=== PATIENT | female | born 1935 | race Caucasian/White ===

== ENCOUNTER 2017-08-24 03:06 | Emergency (ER) | payer MEDICARE, MEDICAID ==
[~2017-08-24] VITALS: Ht 165.1 cm; Wt 63.5 kg
[2017-08-24] MEDS ORDERED: NITROGLYCERIN OINT 1 GM PACKET TP ONE ×2 (03:15→04:02)
[2017-08-24] MEDS ORDERED: NITROGLYCERIN 0.4 MG/TAB BOTTLE SL ONE ×2 (03:15→04:02)
[2017-08-24 03:37] LABS: BASOPHILS # (AUTO) 0.1 K/uL (0.0-8.0); BASOPHILS % (AUTO) 0.7 % (0.0-2.0); EOSINOPHILS # (AUTO) 0.1 K/uL (0.0-0.7); EOSINOPHILS % (AUTO) 1.2 % (0.0-7.0); HEMATOCRIT 34.7 % (31.2-41.9); HEMOGLOBIN 11.9 g/dL (10.9-14.3); LYMPHOCYTES # (AUTO) 1.1 K/uL (20.0-40.0); LYMPHOCYTES % (AUTO) 13.1 % (20.5-51.5); MEAN CORPUSCULAR HEMOGLOBIN 31.8 uug (24.7-32.8); MEAN CORPUSCULAR HGB CONC 34 g/dL (32.3-35.6); MEAN CORPUSCULAR VOLUME 92.6 fL (75.5-95.3); MONOCYTES # (AUTO) 0.8 K/uL (2.0-10.0); MONOCYTES % (AUTO) 9.2 % (0.0-11.0); NEUTROPHILS # (AUTO) 6.3 K/uL (1.8-8.9); NEUTROPHILS % (AUTO) 75.8 % (38.5-71.5); PLATELET COUNT (AUTO) 228 K/uL (179-408); RED BLOOD CELL COUNT(AUTO) 3.75 MIL/uL (3.63-4.92); WHITE BLOOD COUNT (AUTO) 8.3 K/uL (3.8-11.8)
[2017-08-24] MEDS ORDERED: CYAN10009 PO (03:51)
[2017-08-24] MEDS ORDERED: PANT40TA2 PO (03:51)
[2017-08-24] MEDS ORDERED: METO-356 PO (03:51)
[2017-08-24] MEDS ORDERED: VENL75TA4 PO (03:51)
[2017-08-24] MEDS ORDERED: ARIP2TAB3 PO (03:51)
[2017-08-24] MEDS ORDERED: APIX2.5T PO (03:51)
[2017-08-24] MEDS ORDERED: DIGO125T PO (03:51)
[2017-08-24] MEDS ORDERED: MIRT45TA PO (03:51)
[2017-08-24] MEDS ORDERED: ATOR40TA PO (03:51)
[2017-08-24] MEDS ORDERED: MULT1TAB73 PO (03:51)
[2017-08-24] MEDS ORDERED: LEVO200T PO (03:51)
[2017-08-24] MEDS ORDERED: TRAZ-144 PO (03:51)
[2017-08-24] MEDS ORDERED: POTA-10 PO (03:56)
[2017-08-24] MEDS ORDERED: FURO80TA87 PO (03:56)
[2017-08-24 04:00] LABS: ALANINE AMINOTRANSFERASE 22 U/L (14-59); ALKALINE PHOSPHATASE 188 U/L (50-136); ASPARTATE AMINOTRANSFERASE 24 U/L (15-37); BILIRUBIN,DIRECT 0.2 mg/dL (0.0-0.2); BILIRUBIN,TOTAL 0.8 mg/dL (0.2-1.0); CARBON DIOXIDE 31 mmol/L (21-32); CHLORIDE 94 mmol/L (98-107); CREATININE 2.1 mg/dL (0.6-1.3); POTASSIUM 4.2 mmol/L (3.5-5.1); TOTAL PROTEIN, SERUM 8.3 g/dL (6.4-8.2); UREA NITROGEN, BLOOD 52 mg/dL (7-18)
[2017-08-24 04:02] LABS: GLUCOSE 398 mg/dL (74-106)
[2017-08-24] MEDS ORDERED: INSU100C SUBCUT ×3 (04:13)
[2017-08-24] MEDS ORDERED: INSU100I24 SQ (04:13)
--- NOTE | 2017-08-24 04:41 | NUR ---
Spoke to [facility] nursing Languages And Literature Instructor to request medical records for patient. Faxed release of record form to [phone] as requested
[2017-08-24] MEDS ORDERED: DIGOXIN 500 MCG/2 ML AMP IV ONE (04:45)
[2017-08-24] MEDS ORDERED: DIGOXIN 500 MCG/2 ML AMP ONE (05:03)
--- NOTE | 2017-08-24 05:46 | NUR ---
Spoke with [facility] nursing supervisor hot dip tinning, states she will fax patient chart to [facility] [place] now.
--- NOTE | 2017-08-24 07:31 | NUR ---
Report given to Shloa MONCADA
--- NOTE | 2017-08-24 07:58 | NUR ---
hospital tray at bedside per pt request
--- NOTE | 2017-08-24 08:19 | NUR ---
pt had bf with good appetite. tolerated well. called pt son for picker packer. pt son will arrange uber.
--- NOTE | 2017-08-24 08:30 | NUR ---
pt picked up by tomasz
[2017-08-24 08:33] VITALS: BP 121/66
== END 2017-08-24 08:31 | disposition home or self-care (01) ==
LOC: ER 03:06
DX: I11.0 Hypertensive heart disease with heart failure (principal); I48.91 Unspecified atrial fibrillation; I50.9 Heart failure, unspecified; E11.9 Type 2 diabetes mellitus without complications; Z79.01 Long term (current) use of anticoagulants; Z79.4 Long term (current) use of insulin; Z88.2 Allergy status to sulfonamides; Z95.0 Presence of cardiac pacemaker; Z98.890 Other specified postprocedural states; R06.00 Dyspnea, unspecified
CPT/HCPCS: 36415; 70030-TC; 71010; 85025; 85730; 93005; A4663; J1160

== ENCOUNTER 2017-08-24 23:08 | Emergency (ER) | payer MEDICARE, MEDICAID ==
[~2017-08-24] VITALS: Ht 165.1 cm; Wt 63.5 kg
[~2017-08-24 23:08] MED LIST: APIX2.5T PO; ARIP2TAB3 PO; ATOR40TA PO; CYAN10009 PO; DIGO125T PO; FURO80TA87 PO; INSU100C SUBCUT; INSU100I24 SQ; LEVO200T PO; METO-356 PO; MIRT45TA PO; MULT1TAB73 PO; PANT40TA2 PO; POTA-10 PO; TRAZ-144 PO; VENL75TA4 PO
--- NOTE | 2017-08-24 23:22 | NUR ---
Patient comes to ER via RA [id number] stating "I called 911 to get a ride to [facility]. They took me here. I want to take an UBER to [facility] now.
--- NOTE | 2017-08-24 23:47 | NUR ---
Patient discharged to home in stable conditon. Written and verbal after care instructions given. Patient verbalizes understanding of instructions.
== END 2017-08-24 23:48 | disposition home or self-care (01) ==
LOC: ER 23:08
DX: I11.0 Hypertensive heart disease with heart failure (principal); I50.9 Heart failure, unspecified; E11.9 Type 2 diabetes mellitus without complications; I48.91 Unspecified atrial fibrillation; Z79.01 Long term (current) use of anticoagulants; Z79.4 Long term (current) use of insulin; Z88.2 Allergy status to sulfonamides; Z95.0 Presence of cardiac pacemaker
CPT/HCPCS: A4663

== ENCOUNTER 2018-03-07 13:48 | Inpatient (IN) | payer MEDICARE, MEDICAID ==
[~2018-03-07] VITALS: Ht 165.1 cm; Wt 64.4 kg
[~2018-03-07 13:48] MED LIST changes: -TRAZ-144 PO; +TRAZ-182 PO
[2018-03-07 15:20] VITALS: BP 142/72
[2018-03-07] MEDS ORDERED: Z GUARD REMEDY PASTE 57 GM TUBE TOP PRN (15:30)
--- NOTE | 2018-03-07 16:00 | NUR ---
Admitted this 82 y/o female from [facility] with diagnosis of CHF and NSTEMI, transferred via gurney. Patient is alert, coherent, verbally responsive, on room air. not in any form of acute distress. She denies any pain or discomfort at this time. Skin is intact. Routine admission care done. Oriented patient to room and use of devices with verbalized understanding. Notified Dr. Mcginnis who is in the unit regarding admission and need for medication reconciliation. Informed Dr. Rosario about the admission. Admission photos taken.
[2018-03-07] MEDS ORDERED: ACET-2154 PO (16:19)
[2018-03-07] MEDS ORDERED: METO25TA6 PO (16:19)
[2018-03-07] MEDS ORDERED: VITA1TAB18 PO (16:19)
[2018-03-07] MEDS ORDERED: ARIP2TAB3 PO (16:19)
[2018-03-07] MEDS ORDERED: APIX2.5T PO (16:19)
[2018-03-07] MEDS ORDERED: HYDR-3326 PO (16:19)
[2018-03-07] MEDS ORDERED: BUME2TAB3 PO (16:19)
[2018-03-07] MEDS ORDERED: POLY15DR27 EACHEYE (16:19)
[2018-03-07] MEDS ORDERED: INSU100I19 SQ (16:19)
[2018-03-07] MEDS ORDERED: LEVO200T9 PO (16:19)
[2018-03-07] MEDS ORDERED: ONDA4TAB10 PO (16:19)
[2018-03-07] MEDS ORDERED: MULT-659 PO (16:19)
[2018-03-07] MEDS ORDERED: CALC-731 PO (16:19)
[2018-03-07] MEDS ORDERED: MIRT45TA5 PO (16:19)
[2018-03-07] MEDS ORDERED: DIGO125T PO (16:19)
[2018-03-07] MEDS ORDERED: ASCORBIC ACID PO (16:19)
[2018-03-07] MEDS ORDERED: NITR0.4T48 SL (16:19)
[2018-03-07] MEDS ORDERED: LOSA25TA13 PO (16:19)
[2018-03-07] MEDS ORDERED: CYAN10009 PO (16:19)
[2018-03-07] MEDS ORDERED: PANT40TA4 PO (16:19)
[2018-03-07] MEDS ORDERED: INSU100I24 SQ (16:35)
[2018-03-07] MEDS ORDERED: ALBUTEROL SULFATE 2.5 MG/3 ML NEBU NEB PRN (20:15)
[2018-03-07] MEDS ORDERED: HYDROCODONE/APAP 5-325MG TABLET PO PRN (20:15)
[2018-03-07] MEDS ORDERED: DEXTROSE 50% 50 ML DISP.SYRIN IV PRN (20:15)
[2018-03-07] MEDS ORDERED: ACETAMINOPHEN 325 MG TABLET PO PRN (20:15)
[2018-03-07 20:38] VITALS: BP 118/58
[2018-03-07] MEDS: ATORVASTATIN 40 MG TABLET PO SCH (20:53)
[2018-03-07] MEDS: METOPROLOL TARTRATE 25 MG TABLET PO SCH (20:54)
[2018-03-07] MEDS: MIRTAZAPINE 15 MG TABLET PO SCH (20:54)
[2018-03-07] MEDS: MUPIROCIN 2% OINT 22 GM TUBE NS SCH (20:54)
[2018-03-07] MEDS: INSULIN REGULAR, HUMAN 300 UNIT/3 ML VIAL SQ PRN (21:06)
[2018-03-07] MEDS: BLOOD SUGAR DIAGNOSTIC 1 EACH STRIP VI SCH (21:07)
[2018-03-08] MEDS: ZOLPIDEM 5 MG TABLET PO PRN ×2 (00:51→22:55)
[2018-03-08 05:01] VITALS: BP 110/50
[2018-03-08] MEDS: PANTOPRAZOLE SODIUM 40 MG TABLET.DR PO SCH (06:23)
[2018-03-08 07:53] VITALS: BP 164/71
[2018-03-08 07:54] LABS: BASOPHILS % (AUTO) 0.6 % (0.0-2.0); EOSINOPHILS # (AUTO) 0.1 K/uL (0.0-0.7); EOSINOPHILS % (AUTO) 1.9 % (0.0-7.0); HEMATOCRIT 31.3 % (31.2-41.9); HEMOGLOBIN 10.7 g/dL (10.9-14.3); LYMPHOCYTES # (AUTO) 1.3 K/uL (20.0-40.0); LYMPHOCYTES % (AUTO) 21.1 % (20.5-51.5); MEAN CORPUSCULAR HEMOGLOBIN 32.2 uug (24.7-32.8); MEAN CORPUSCULAR HGB CONC 34 g/dL (32.3-35.6); MEAN CORPUSCULAR VOLUME 93.7 fL (75.5-95.3); MONOCYTES # (AUTO) 0.6 K/uL (2.0-10.0); MONOCYTES % (AUTO) 9.9 % (0.0-11.0); NEUTROPHILS # (AUTO) 4.1 K/uL (1.8-8.9); NEUTROPHILS % (AUTO) 66.5 % (38.5-71.5); PLATELET COUNT (AUTO) 281 K/uL (179-408); RED BLOOD CELL COUNT(AUTO) 3.34 MIL/uL (3.63-4.92); WHITE BLOOD COUNT (AUTO) 6.1 K/uL (3.8-11.8)
--- NOTE | 2018-03-08 08:00 | NUR ---
Received patient alert and oriented x4, no c/o of pain at this time, able to verbalized known needs, compliant with her medication regiment, call light with in reach at all times. will continue monitor
[2018-03-08 08:01] LABS: CARBON DIOXIDE 31 mmol/L (21-32); CHLORIDE 94 mmol/L (98-107); CREATININE 1.5 mg/dL (0.6-1.3); GLUCOSE 159 mg/dL (74-106); POTASSIUM 4.6 mmol/L (3.5-5.1); UREA NITROGEN, BLOOD 26 mg/dL (7-18)
[2018-03-08] MEDS: BLOOD SUGAR DIAGNOSTIC 1 EACH STRIP VI SCH ×4 (08:13→21:59)
[2018-03-08] MEDS: INSULIN REGULAR, HUMAN 300 UNIT/3 ML VIAL SQ PRN ×4 (08:15→22:07)
[2018-03-08] MEDS: MUPIROCIN 2% OINT 22 GM TUBE NS SCH (08:21)
[2018-03-08] MEDS: POTASSIUM CHLORIDE 10 MEQ TAB.PRT.SR PO SCH (08:21)
[2018-03-08] MEDS: BUMETANIDE 1 MG TABLET PO SCH (08:22)
[2018-03-08] MEDS: ARIPIPRAZOLE 2 MG TABLET PO SCH (08:22)
[2018-03-08] MEDS: DIGOXIN 125 MCG TABLET PO SCH ×2 (08:23→08:28)
[2018-03-08] MEDS: METOPROLOL TARTRATE 25 MG TABLET PO SCH ×2 (08:23→21:58)
[2018-03-08] MEDS: LEVOTHYROXINE SODIUM 200 MCG TABLET PO SCH (08:28)
[2018-03-08] MEDS ORDERED: APIXABAN 5 MG TABLET PO ONE ×2 (09:00→18:00)
[2018-03-08] MEDS ORDERED: APIXABAN 5 MG TABLET PO SCH (09:00)
[2018-03-08] MEDS ORDERED: VENLAFAXINE 75 MG TABLET PO SCH (11:00)
[2018-03-08] MEDS ORDERED: ONDANSETRON HCL 4 MG TABLET PO PRN (11:00)
[2018-03-08] MEDS ORDERED: Medication Not On Formulary EA (Apixaban (Eliquis) 2.5 MG) PO SCH (11:00)
--- NOTE | 2018-03-08 11:00 | NUR ---
Patient picked up by personal care clinician for her eye appointment, patient in stable condition, no c/o pain noted.
[2018-03-08] MEDS: LOSARTAN POTASSIUM 25 MG TABLET PO SCH (18:38)
[2018-03-08] MEDS: VENLAFAXINE XR 75 MG CAP.SR.24H PO SCH (18:38)
[2018-03-08 19:15] VITALS: BP 133/68
[2018-03-08 19:58] VITALS: BP 134/69
[2018-03-08] MEDS ORDERED: INSULIN GLARGINE,HUM 300 UNITS/3 ML CARTRIDGE SQ ONE (21:30)
[2018-03-08] MEDS: MIRTAZAPINE 15 MG TABLET PO SCH (21:57)
[2018-03-08] MEDS: ATORVASTATIN 40 MG TABLET PO SCH (21:57)
[2018-03-08] MEDS: TRAZODONE 50 MG TABLET PO SCH (21:58)
[2018-03-08] MEDS: INSULIN DETEMIR 300 UNIT/3 ML CARTRIDGE SQ SCH (22:11)
[2018-03-09 00:24] VITALS: BP 125/61
--- NOTE | 2018-03-09 00:25 | NUR ---
NURSING CLINICAL NOTE: pt is complaining of SOB, denies chest pain. placed pt on 3L via NC. VSS. MD. Alves made aware. no new orders, will continue to monitor patient.
[2018-03-09] MEDS: LEVOTHYROXINE SODIUM 200 MCG TABLET PO SCH (06:29)
[2018-03-09] MEDS: PANTOPRAZOLE SODIUM 40 MG TABLET.DR PO SCH (06:29)
[2018-03-09] MEDS: BLOOD SUGAR DIAGNOSTIC 1 EACH STRIP VI SCH ×4 (06:29→21:34)
[2018-03-09 07:10] LABS: BASOPHILS % (AUTO) 0.5 % (0.0-2.0); EOSINOPHILS # (AUTO) 0.1 K/uL (0.0-0.7); EOSINOPHILS % (AUTO) 1.4 % (0.0-7.0); HEMATOCRIT 29.2 % (31.2-41.9); HEMOGLOBIN 9.9 g/dL (10.9-14.3); LYMPHOCYTES # (AUTO) 1.5 K/uL (20.0-40.0); LYMPHOCYTES % (AUTO) 22.9 % (20.5-51.5); MEAN CORPUSCULAR HEMOGLOBIN 31.7 uug (24.7-32.8); MEAN CORPUSCULAR HGB CONC 34 g/dL (32.3-35.6); MEAN CORPUSCULAR VOLUME 93.5 fL (75.5-95.3); MONOCYTES # (AUTO) 0.7 K/uL (2.0-10.0); MONOCYTES % (AUTO) 10.9 % (0.0-11.0); NEUTROPHILS # (AUTO) 4.2 K/uL (1.8-8.9); NEUTROPHILS % (AUTO) 64.3 % (38.5-71.5); PLATELET COUNT (AUTO) 213 K/uL (179-408); RED BLOOD CELL COUNT(AUTO) 3.12 MIL/uL (3.63-4.92); WHITE BLOOD COUNT (AUTO) 6.5 K/uL (3.8-11.8)
[2018-03-09 07:28] LABS: ALANINE AMINOTRANSFERASE 18 U/L (14-59); ALKALINE PHOSPHATASE 125 U/L (50-136); ASPARTATE AMINOTRANSFERASE 17 U/L (15-37); BILIRUBIN,TOTAL 0.4 mg/dL (0.2-1.0); CARBON DIOXIDE 30 mmol/L (21-32); CHLORIDE 98 mmol/L (98-107); CHOLESTEROL 105 mg/dL (<200); CREATININE 1.4 mg/dL (0.6-1.3); GLUCOSE 93 mg/dL (74-106); HDL CHOLESTEROL 51 mg/dL (40-60); MAGNESIUM 2.1 mg/dL (1.8-2.4); PHOSPHOROUS 3.6 mg/dL (2.5-4.9); POTASSIUM 4.5 mmol/L (3.5-5.1); TOTAL PROTEIN, SERUM 6.5 g/dL (6.4-8.2); TRIGLYCERIDES 86 MG/DL (30-150); UREA NITROGEN, BLOOD 25 mg/dL (7-18)
[2018-03-09 07:31] LABS: THYROID STIMULATING HORMONE 2.742 mIU/mL (0.358-3.740)
--- NOTE | 2018-03-09 08:10 | NUR ---
Received PT in awake and in bed. AOx4. No complain of pain noted at the time. PT received on NC due to difficulty breathing from previous night. No SOB noted. PT made needs known. Returned to bed with safety measures. Siderails up and call light within reach. Will continue to monitor.
[2018-03-09 08:15] VITALS: BP 115/55
[2018-03-09] MEDS: VENLAFAXINE XR 75 MG CAP.SR.24H PO SCH (08:59)
[2018-03-09] MEDS: BUMETANIDE 1 MG TABLET PO SCH (08:59)
[2018-03-09] MEDS ORDERED: CALCIUM CARB/VITAMIN D 500MG-200UNITS TABLET PO SCH (09:00)
[2018-03-09] MEDS ORDERED: APIXABAN 5 MG TABLET PO ONE (09:00)
[2018-03-09] MEDS ORDERED: Medication Not On Formulary EA (Multivits,Th W-Fe,Other Min (Thera-M) 1 EACH) PO SCH (09:00)
[2018-03-09] MEDS ORDERED: ASCORBIC ACID 100 MG PO SCH (09:00)
[2018-03-09] MEDS ORDERED: MULTIVIT, IRON, MIN NO. 8, FA TABLET PO SCH (09:00)
[2018-03-09] MEDS: DIGOXIN 125 MCG TABLET PO SCH (09:00)
[2018-03-09] MEDS ORDERED: POLYVINYL ALCOHOL OPHT DROPS 15 ML BOTTLE EACHEYE SCH (09:00)
[2018-03-09] MEDS ORDERED: MINERALS PO SCH (09:00)
[2018-03-09] MEDS ORDERED: VIT D3 PO SCH (09:00)
[2018-03-09] MEDS ORDERED: VITAMIN B COMPLEX 1 TABLET PO SCH (09:00)
[2018-03-09] MEDS ORDERED: [UNRECOGNIZED DRUG - OTHER] PO SCH (09:00)
[2018-03-09] MEDS ORDERED: VITAMIN B COMPLEX PO SCH (09:00)
[2018-03-09] MEDS ORDERED: ASCORBIC ACID 500 MG TABLET PO SCH (09:00)
[2018-03-09] MEDS ORDERED: CALCIUM CARB PO SCH (09:00)
[2018-03-09] MEDS ORDERED: CYANOCOBALAMIN 1,000 MCG TABLET PO SCH (09:00)
[2018-03-09] MEDS: POTASSIUM CHLORIDE 10 MEQ TAB.PRT.SR PO SCH (09:01)
[2018-03-09] MEDS: LOSARTAN POTASSIUM 25 MG TABLET PO SCH (09:01)
[2018-03-09] MEDS: METOPROLOL TARTRATE 25 MG TABLET PO SCH ×2 (09:01→20:45)
[2018-03-09] MEDS: ARIPIPRAZOLE 2 MG TABLET PO SCH (09:07)
[2018-03-09] MEDS: INSULIN REGULAR, HUMAN 300 UNIT/3 ML VIAL SQ PRN ×2 (11:13→16:30)
[2018-03-09 11:31] LABS: IRON, SERUM 45 ug/dL (50-175)
[2018-03-09 13:39] LABS: *BILIRUBIN,URIN NEGATIVE (NEGATIVE); *BLOOD, URINE NEGATIVE (NEGATIVE); *CLARITY,URINE CLEAR (CLEAR); *COLOR,URINE YELLOW (YELLOW); *KETONES,URINE NEGATIVE (NEGATIVE); *PROTEIN,URINE NEGATIVE (NEGATIVE); *UROBILINOGEN,URINE 0.2 E.U./dl (NORMAL); LEUKOCYTE ESTERASE ,URINE TRACE (NEGATIVE); NITRITE, URINE NEGATIVE (NEGATIVE); PH,URINE 6.5 (5.0-8.0); UGLUCOSE NEGATIVE (NEGATIVE)
[2018-03-09 13:42] LABS: BACTERIA,URINE FEW /HPF (NONE SEEN); SQUAMOUS EPITHELIAL CELL,UR MODERATE /HPF (NONE SEEN)
--- NOTE | 2018-03-09 14:00 | NUR ---
Spoke with PT's son, Rich, regarding Eloquis supply. He is aware that pharmacy is currently supplying it until he brings meds. He stated that he will bring it tonight when he visits PT.
[2018-03-09] MEDS ORDERED: ALBUTEROL SULFATE 2.5 MG/3 ML NEBU NEB PRN (15:45)
[2018-03-09] MEDS ORDERED: IPRATROPIUM BROMIDE 0.5 MG/2.5 ML NEBU NEB PRN (15:45)
[2018-03-09] MEDS: CEPHALEXIN MONOHYDRATE 250 MG CAPSULE PO SCH (16:32)
[2018-03-09] MEDS ORDERED: APIXABAN 5 MG TABLET PO SCH (17:00)
--- NOTE | 2018-03-09 19:30 | NUR ---
Received patient awake, busy talking in the phone. No s/s of pain/discomforts. Not in respiratory distress. Continue care as planned.
--- NOTE | 2018-03-09 19:40 | NUR ---
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 Elevated affected area with 2 pillows
[2018-03-09 20:29] VITALS: BP 116/53
[2018-03-09] MEDS: MIRTAZAPINE 15 MG TABLET PO SCH (20:44)
[2018-03-09] MEDS: TRAZODONE 50 MG TABLET PO SCH (20:44)
[2018-03-09] MEDS: ATORVASTATIN 40 MG TABLET PO SCH (20:44)
[2018-03-09 20:45] VITALS: BP 116/58
--- NOTE | 2018-03-09 21:05 | NUR ---
Assisted to the BR. Had large BM today. Stool specimen obtained and sent to the lab as ordered.
[2018-03-09] MEDS: INSULIN DETEMIR 300 UNIT/3 ML CARTRIDGE SQ SCH (21:33)
--- NOTE | 2018-03-09 22:37 | NUR ---
Patient friend from [place] called. Apparently patient called her to met her in [facility] ER. Reconfirmed said conversation with the patient and she claimed that her Human Resources Professional from [facility] Dr. Collins wants her to be transfered to ICU [facility], otherwise she will go AMA. VS taken 131/54, 94% RA, 64, 20, 97.8. Not in distress.
--- NOTE | 2018-03-09 22:45 | NUR ---
Left message to pt 's son Rich [phone]. Anticipating him to return the call.
--- NOTE | 2018-03-09 22:56 | NUR ---
Left message for Dr. Saunders.
--- NOTE | 2018-03-09 23:40 | NUR ---
Nursing inspection and testing supervisor made aware about patient intent to go AMA.
--- NOTE | 2018-03-09 23:52 | NUR ---
Dr Collins called and clarify if he really gave order to patient to transfer to [facility] and he said he's just only giving recommendation.
--- NOTE | 2018-03-10 00:25 | NUR ---
Trying to convince patient to stay even just for tonight, Pt claimed that she haven't seen any doctor for her 4 days length of stay and she needed to be seen to find out why she's still retaining water. Nursing airplane flight attendant supervisor made aware and even her tried every effort to convince her to stay, but patient made up her mind already.
[2018-03-10] MEDS: CEPHALEXIN MONOHYDRATE 250 MG CAPSULE PO SCH (00:55)
--- NOTE | 2018-03-10 01:00 | NUR ---
VENITA paper signed. Belongings packed ready to go. Friend from [place] trying to convince her to stay till Am. She will call for Uber transportation.
--- NOTE | 2018-03-10 01:30 | NUR ---
Left AMA via cab. Denies any CP/pain. No s/s of respiratory distress. VS stable.
[2018-03-10 08:30] LABS: *OCCULT BLOOD STOOL NEGATIVE (NEGATIVE)
--- NOTE | 2018-03-10 17:19 | NUR ---
INTERDISCIPLINARY TEAM CONFERENCE
== END 2018-03-10 01:30 | disposition left against medical advice (07) | DRG 281 ==
PROVIDERS: ADMIT Physical Medicine & Rehabilitation Pain Medicine; ATTEND Physical Medicine & Rehabilitation Pain Medicine
DX: I11.0 Hypertensive heart disease with heart failure (principal); I21.4 Non-ST elevation (NSTEMI) myocardial infarction; E44.0 Moderate protein-calorie malnutrition; E87.1 Hypo-osmolality and hyponatremia; N39.0 Urinary tract infection, site not specified; I50.33 Acute on chronic diastolic (congestive) heart failure; D63.8 Anemia in other chronic diseases classified elsewhere; E03.9 Hypothyroidism, unspecified; E11.9 Type 2 diabetes mellitus without complications; E78.5 Hyperlipidemia, unspecified; E83.51 Hypocalcemia; I25.10 Atherosclerotic heart disease of native coronary artery without angina pectoris; I48.0 Paroxysmal atrial fibrillation; Z85.3 Personal history of malignant neoplasm of breast; Z90.12 Acquired absence of left breast and nipple; Z95.1 Presence of aortocoronary bypass graft; Z95.5 Presence of coronary angioplasty implant and graft; R06.00 Dyspnea, unspecified; I35.0 Nonrheumatic aortic (valve) stenosis; Z88.2 Allergy status to sulfonamides; Z88.8 Allergy status to other drugs, medicaments and biological substances; M19.90 Unspecified osteoarthritis, unspecified site
CPT/HCPCS: 36415; 70030-TC; 83550; 83735; 84100; 84443; 85025; 87086; 92523; 92610; 94664; 97110; 97116; 97530; 97535; A4663; J1815

== ENCOUNTER 2019-06-27 11:47 | Inpatient (IN) | payer MEDICARE, MEDICAID ==
[~2019-06-27] VITALS: Ht 162.6 cm; Wt 66.9 kg
[~2019-06-27 11:47] MED LIST changes: +ACET-2154 PO; +ASCORBIC ACID PO; +BUME2TAB7 PO; +CALC-731 PO; +CYAN-51 PO; -CYAN10009 PO; -FURO80TA87 PO; +HYDR-3326 PO; -INSU100C SUBCUT; +INSU100I19 SQ; -LEVO200T PO; +LEVO200T9 PO; +LOSA25TA27 PO; -METO-356 PO; +METO25TA6 PO; -MIRT45TA PO; +MIRT45TA83 PO; +MULT-659 PO; -MULT1TAB73 PO; +NITR0.4T48 SL; +ONDA4TAB10 PO; -PANT40TA2 PO; +PANT40TA4 PO; +POLY15DR27 EACHEYE; +VITA1TAB18 PO
[2019-06-27] MEDS ORDERED: IV NORMAL SALINE 500 ML BAG IV ONE (12:00)
[2019-06-27 12:12] LABS: BASOPHILS % (AUTO) 0.4 % (0.0-2.0); EOSINOPHILS % (AUTO) 0.1 % (0.0-7.0); HEMATOCRIT 37.9 % (31.2-41.9); HEMOGLOBIN 12.7 g/dL (10.9-14.3); LYMPHOCYTES # (AUTO) 0.6 K/uL (20.0-40.0); LYMPHOCYTES % (AUTO) 5.6 % (20.5-51.5); MEAN CORPUSCULAR HEMOGLOBIN 32.7 uug (24.7-32.8); MEAN CORPUSCULAR HGB CONC 34 g/dL (32.3-35.6); MEAN CORPUSCULAR VOLUME 97.2 fL (75.5-95.3); MONOCYTES # (AUTO) 0.6 K/uL (2.0-10.0); MONOCYTES % (AUTO) 5.7 % (0.0-11.0); NEUTROPHILS # (AUTO) 9.8 K/uL (1.8-8.9); NEUTROPHILS % (AUTO) 88.2 % (38.5-71.5); PLATELET COUNT (AUTO) 217 K/uL (179-408); RED BLOOD CELL COUNT(AUTO) 3.89 MIL/uL (3.63-4.92); WHITE BLOOD COUNT (AUTO) 11.2 K/uL (3.8-11.8)
--- NOTE | 2019-06-27 12:15 | NUR ---
PATIENT BIB [facility]. PATIENT IS AWAKE AND ALERT. PLACED ON A MONITOR.
[2019-06-27 12:20] LABS: CARBON DIOXIDE 31 mmol/L (21-32); CHLORIDE 98 mmol/L (98-107); CREATININE 1.4 mg/dL (0.6-1.3); POTASSIUM 4.1 mmol/L (3.5-5.1); UREA NITROGEN, BLOOD 19 mg/dL (7-18)
[2019-06-27 12:28] LABS: GLUCOSE 410 mg/dL (74-106)
[2019-06-27 12:35] LABS: ALANINE AMINOTRANSFERASE 12 U/L (14-59); ALKALINE PHOSPHATASE 115 U/L (50-136); ASPARTATE AMINOTRANSFERASE 8 U/L (15-37); BILIRUBIN,DIRECT 0.3 mg/dL (0.0-0.2); BILIRUBIN,TOTAL 0.8 mg/dL (0.2-1.0); TOTAL PROTEIN, SERUM 7.5 g/dL (6.4-8.2)
[2019-06-27] MEDS ORDERED: INSULIN REGULAR, HUMAN 300 UNIT/3 ML VIAL ONE (12:40)
[2019-06-27] MEDS ORDERED: INSULIN REGULAR, HUMAN 300 UNIT/3 ML VIAL IV ONE (12:45)
[2019-06-27] MEDS ORDERED: INSU100C SQ (12:52)
[2019-06-27] MEDS ORDERED: INSU100V7 SQ (12:52)
--- NOTE | 2019-06-27 13:32 | NUR ---
PATIENT AND CAREGIVER AWARE OF PENDING ADMISSION TO HOSPITAL. PATIENT IS AWAKE AND ALERT WITH NO NEW COMPLAINTS. REPORT GIVEN TO DANNY MONCADA.
--- NOTE | 2019-06-27 13:55 | NUR ---
Received this admission from ER per saima this 84 yo female with the chief complaint of nausea with throat and abdominal pain with the diagnosis of CHF. Transferred to bed comfortably. Routine admission care rendered. Awake, alert, oriented x 4, with generalized weakness. Placed on tele v paced. Caregiver at bedside. Dr. Fermin informed of admission
[2019-06-27] MEDS ORDERED: Z GUARD REMEDY PASTE 57 GM TUBE TOP PRN (15:30)
[2019-06-27] MEDS ORDERED: MAGNESIUM HYDROXIDE 30 ML LIQUID UDC PO PRN (15:30)
[2019-06-27] MEDS ORDERED: ZOLPIDEM 5 MG TABLET PO PRN (15:30)
[2019-06-27] MEDS ORDERED: ONDANSETRON 4 MG/2 ML VIAL IV PRN (15:30)
[2019-06-27] MEDS ORDERED: INSULIN REGULAR, HUMAN 300 UNITS/3 ML VIAL SQ PRN (15:30)
[2019-06-27] MEDS ORDERED: DEXTROSE 50% 50 ML DISP.SYRIN IV PRN (15:30)
[2019-06-27] MEDS ORDERED: NITROGLYCERIN 0.4 MG/TAB BOTTLE SL PRN (15:30)
[2019-06-27] MEDS ORDERED: ALBUTEROL SULFATE 2.5 MG/3 ML NEBU NEB PRN (15:45)
[2019-06-27 16:13] VITALS: BP 111/64
[2019-06-27 16:16] VITALS: BP 111/64
[2019-06-27] MEDS: BLOOD SUGAR DIAGNOSTIC 1 EACH STRIP VI SCH ×2 (17:21→21:06)
[2019-06-27] MEDS: INSULIN REGULAR, HUMAN 300 UNIT/3 ML VIAL SQ PRN (17:32)
[2019-06-27] MEDS: APIXABAN 5 MG TABLET PO SCH (17:32)
--- NOTE | 2019-06-27 18:49 | NUR ---
Diet ordered. meal served. Endorsed for further care.
--- NOTE | 2019-06-27 19:30 | NUR ---
Received patient awake and alert in bed. No signs of acute distress noted. No complaints of SOB or pain at this time. Heplock on the right AC is intact and patent. Safety measures initiated. Bed is low and locked, call light within reach. Will continue to monitor.
[2019-06-27 20:00] VITALS: BP 110/61
--- NOTE | 2019-06-27 20:40 | NUR ---
Around 1999, patient started to complain of a dull chest pain 4/10, non-radiating. Administered PRN Nitroquick sublingual. After 5 minutes patient reported that chest pain went away. Lab also called about critical lab of lactic acid of 2.[address] Fermin, received new orders. Will continue to monitor.
[2019-06-27] MEDS: ATORVASTATIN 40 MG TABLET PO SCH (20:54)
[2019-06-27] MEDS: MIRTAZAPINE 15 MG TABLET PO SCH (20:54)
[2019-06-27] MEDS: ARIPIPRAZOLE 5 MG TABLET PO SCH (20:54)
[2019-06-27] MEDS ORDERED: ARIPIPRAZOLE 2 MG TABLET PO SCH (21:00)
[2019-06-27] MEDS ORDERED: MIRTAZAPINE 45 MG PO SCH (21:00)
[2019-06-28] VITALS: BP 130/64
[2019-06-28 03:57] LABS: *BILIRUBIN,URIN NEGATIVE (NEGATIVE); *BLOOD, URINE NEGATIVE (NEGATIVE); *CLARITY,URINE CLEAR (CLEAR); *COLOR,URINE YELLOW (YELLOW); *KETONES,URINE TRACE (NEGATIVE); *UROBILINOGEN,URINE 0.2 E.U./dl (NORMAL); LEUKOCYTE ESTERASE ,URINE NEGATIVE (NEGATIVE); NITRITE, URINE NEGATIVE (NEGATIVE)
[2019-06-28 04:00] VITALS: BP 107/52
[2019-06-28 04:03] LABS: UGLUCOSE 2+ (NEGATIVE)
[2019-06-28 04:07] LABS: BACTERIA,URINE NONE SEEN /HPF (NONE SEEN); MUCUS,URINE FEW /LPF (0-FEW); RBC,URINE 0-3 /HPF (0-3); SQUAMOUS EPITHELIAL CELL,UR FEW /HPF (NONE SEEN); URINE AMORPHOUS URATE MODERATE /HPF; WBC,URINE 0-3 /HPF (0-3)
[2019-06-28] MEDS: PANTOPRAZOLE SODIUM 40 MG TABLET.DR PO SCH (06:17)
[2019-06-28] MEDS: LEVOTHYROXINE SODIUM 200 MCG TABLET PO SCH (06:17)
[2019-06-28] MEDS: BLOOD SUGAR DIAGNOSTIC 1 EACH STRIP VI SCH ×4 (06:37→21:11)
[2019-06-28 07:08] LABS: BASOPHILS % (AUTO) 0.3 % (0.0-2.0); EOSINOPHILS % (AUTO) 0.3 % (0.0-7.0); LYMPHOCYTES # (AUTO) 0.9 K/uL (20.0-40.0); LYMPHOCYTES % (AUTO) 7.3 % (20.5-51.5); MEAN CORPUSCULAR HGB CONC 34 g/dL (32.3-35.6); MEAN CORPUSCULAR VOLUME 97.4 fL (75.5-95.3); MONOCYTES # (AUTO) 1.2 K/uL (2.0-10.0); NEUTROPHILS # (AUTO) 9.9 K/uL (1.8-8.9); NEUTROPHILS % (AUTO) 82.1 % (38.5-71.5); PLATELET COUNT (AUTO) 208 K/uL (179-408); RED BLOOD CELL COUNT(AUTO) 3.38 MIL/uL (3.63-4.92); WHITE BLOOD COUNT (AUTO) 12.1 K/uL (3.8-11.8)
[2019-06-28 07:13] LABS: CARBON DIOXIDE 30 mmol/L (21-32); CHLORIDE 99 mmol/L (98-107); CHOLESTEROL 106 mg/dL (<200); CREATININE 1.3 mg/dL (0.6-1.3); HDL CHOLESTEROL 20 mg/dL (40-60); MAGNESIUM 1.8 mg/dL (1.8-2.4); PHOSPHOROUS 1.4 mg/dL (2.5-4.9); POTASSIUM 3.7 mmol/L (3.5-5.1); TRIGLYCERIDES 126 MG/DL (30-150); UREA NITROGEN, BLOOD 16 mg/dL (7-18)
[2019-06-28 07:20] LABS: HEMOGLOBIN 11.2 g/dL (10.9-14.3)
[2019-06-28 07:21] LABS: HEMATOCRIT 32.9 % (31.2-41.9)
[2019-06-28 07:48] LABS: GLUCOSE 320 mg/dL (74-106)
[2019-06-28] MEDS ORDERED: [UNRECOGNIZED DRUG - OTHER] PO SCH (09:00)
[2019-06-28] MEDS ORDERED: VIT D3 PO SCH (09:00)
[2019-06-28] MEDS ORDERED: Medication Not On Formulary EA (Potassium Chloride (K-Dur) 10 MEQ) PO SCH (09:00)
[2019-06-28] MEDS ORDERED: Medication Not On Formulary EA (Multivits,Th W-Fe,Other Min (Thera-M) 1 EACH) PO SCH (09:00)
[2019-06-28] MEDS ORDERED: MINERALS PO SCH (09:00)
[2019-06-28] MEDS ORDERED: ASCORBIC ACID 100 MG PO SCH (09:00)
[2019-06-28] MEDS ORDERED: Medication Not On Formulary EA (Bumetanide (Bumex) 2 MG) PO SCH (09:00)
[2019-06-28] MEDS ORDERED: CALCIUM CARB PO SCH (09:00)
[2019-06-28] MEDS ORDERED: FUROSEMIDE 20 MG/2 ML VIAL IV SCH ×2 (09:00→17:00)
[2019-06-28] MEDS: INSULIN REGULAR, HUMAN 300 UNIT/3 ML VIAL SQ PRN ×2 (09:27→13:51)
[2019-06-28] MEDS: POLYVINYL ALCOHOL OPHT DROPS 15 ML BOTTLE EACHEYE SCH (09:39)
[2019-06-28] MEDS: APIXABAN 5 MG TABLET PO SCH ×2 (09:41→17:00)
[2019-06-28] MEDS: ASCORBIC ACID 250 MG TABLET PO SCH (09:43)
[2019-06-28] MEDS: CALCIUM CARB/VITAMIN D 500MG-200UNITS TABLET PO SCH (09:43)
[2019-06-28] MEDS: POTASSIUM CHLORIDE 10 MEQ TAB.PRT.SR PO SCH (09:43)
[2019-06-28] MEDS: CYANOCOBALAMIN 1,000 MCG TABLET PO SCH (09:44)
[2019-06-28] MEDS: MULTIVIT, IRON, MIN NO. 8, FA TABLET PO SCH (09:44)
[2019-06-28] MEDS: ACETAMINOPHEN 325 MG TABLET PO SCH (09:53)
[2019-06-28 11:16] VITALS: BP 100/47
[2019-06-28] MEDS ORDERED: VANCOMYCIN IV 1,000 MG in IV DEXTROSE 5% 250 ML IV SCH (11:30)
--- NOTE | 2019-06-28 12:06 | NUR ---
CLINICAL PHARMACY NOTE: VANCOMYCIN DOSING Request for vancomycin dosing on 84 y/o female 162.56cm 70.76kg for sepsis of unknown origin Temp 98.2 BUN 16 Scr 1.2 WBC 12.1 also on ceftriaxone Give vancomycin 1gm ivpb today. Will dose by level due to decrease renal function. Random vancomycin level ordered for tomorrow afternoon. Will continue to monitor.
[2019-06-28] MEDS ORDERED: VANCOMYCIN IV 1,000 MG in IV DEXTROSE 5% 250 ML IV ONE (13:00)
[2019-06-28] MEDS: CEFTRIAXONE 1 G in IV DEXTROSE 5% 50 ML IV SCH (13:56)
[2019-06-28] MEDS ORDERED: DEXTROSE 50% 50 ML DISP.SYRIN IV PRN (14:15)
[2019-06-28] MEDS: INSULIN GLARGINE,HUM 300 UNITS/3 ML CARTRIDGE SQ SCH ×2 (14:42→21:00)
[2019-06-28 15:03] VITALS: BP 104/55
[2019-06-28] MEDS ORDERED: NEUTRA PHOS PACKET PO ONE (15:15)
[2019-06-28] MEDS: INSULIN REGULAR, HUMAN 300 UNITS/3 ML VIAL SQ PRN (17:43)
[2019-06-28] MEDS: VITAMIN B COMPLEX 1 TABLET PO SCH (17:59)
[2019-06-28 20:10] VITALS: BP 148/55
[2019-06-28] MEDS: ARIPIPRAZOLE 5 MG TABLET PO SCH (20:51)
[2019-06-28] MEDS: ATORVASTATIN 40 MG TABLET PO SCH (20:52)
[2019-06-28] MEDS: MIRTAZAPINE 15 MG TABLET PO SCH (20:52)
[2019-06-28] MEDS ORDERED: ATORVASTATIN 20 MG TABLET PO SCH (21:00)
[2019-06-28] MEDS ORDERED: INSULIN GLARGINE,HUM 300 UNITS/3 ML CARTRIDGE SQ SCH (21:00)
--- NOTE | 2019-06-28 21:15 | NUR ---
CHECKED BLOOD SUGAR, BLOOD SUGAR IS 57 , PER AM NURSE, LANTUS WAS GIVEN EARLY PRE MD. HELD REGULAR INSULIN AND LANTUS. ABLE TO GIVE 16 OZ OF ORANGE JUICE, PATIENT SEEMS TO BE DROWSY BUT STILL ABLE TO DRINK JUICE. ASPIRATION PRECAUTIONS OBSERVED.
--- NOTE | 2019-06-28 22:28 | NUR ---
RECHECKED BLOOD SUGAR. 61. GAVE 8 OZ OF ORANGE JUICE, RECHECKED 30 MIN AFTER. BS IS 64. PATIENT IS AWAKE AND ALERT AND ASYMPTOMATIC . WILL CHECK BLOOD SUGAR AGAIN IN 30 MIN
[2019-06-29] VITALS: BP 110/55
--- NOTE | 2019-06-29 00:07 | NUR ---
BLOOD SUGAR AT 55, PATIENT IS SLEEPING BUT ARROUSABLE WHEN I CALL HER NAME. 24 OXZ OF ORANGE JUICE GIVEN IN TOTAL. DEXTROSE 50L GIVEN PER ORDER. WILL CHECK BLOOD SUGAR AGAIN
[2019-06-29 06:00] VITALS: BP 120/56
[2019-06-29] MEDS: PANTOPRAZOLE SODIUM 40 MG TABLET.DR PO SCH (06:18)
[2019-06-29] MEDS: LEVOTHYROXINE SODIUM 200 MCG TABLET PO SCH (06:18)
[2019-06-29 06:26] LABS: BASOPHILS % (AUTO) 0.3 % (0.0-2.0); EOSINOPHILS % (AUTO) 0.4 % (0.0-7.0); HEMATOCRIT 33.3 % (31.2-41.9); HEMOGLOBIN 11.3 g/dL (10.9-14.3); LYMPHOCYTES # (AUTO) 0.8 K/uL (20.0-40.0); LYMPHOCYTES % (AUTO) 6.9 % (20.5-51.5); MEAN CORPUSCULAR HEMOGLOBIN 33.1 uug (24.7-32.8); MEAN CORPUSCULAR HGB CONC 34 g/dL (32.3-35.6); MEAN CORPUSCULAR VOLUME 98.1 fL (75.5-95.3); MONOCYTES # (AUTO) 0.4 K/uL (2.0-10.0); MONOCYTES % (AUTO) 3.7 % (0.0-11.0); NEUTROPHILS # (AUTO) 10.6 K/uL (1.8-8.9); NEUTROPHILS % (AUTO) 88.7 % (38.5-71.5); PLATELET COUNT (AUTO) 200 K/uL (179-408); WHITE BLOOD COUNT (AUTO) 11.9 K/uL (3.8-11.8)
[2019-06-29] MEDS: BLOOD SUGAR DIAGNOSTIC 1 EACH STRIP VI SCH ×4 (06:31→20:46)
[2019-06-29 06:33] LABS: CARBON DIOXIDE 28 mmol/L (21-32); CHLORIDE 97 mmol/L (98-107); CREATININE 1.4 mg/dL (0.6-1.3); GLUCOSE 104 mg/dL (74-106); PHOSPHOROUS 1.9 mg/dL (2.5-4.9); POTASSIUM 3.5 mmol/L (3.5-5.1); UREA NITROGEN, BLOOD 17 mg/dL (7-18)
--- NOTE | 2019-06-29 06:51 | NUR ---
PATIENT BS IS 108 , PATIENT IS IN NO DISTRESS, SLEPT WELL LAST NIGHT. REMAINS ASYMPTOMATIC. HEART MONITOR READING PACING 70 ENDORSED TO AM SHIFT NURSE
[2019-06-29] MEDS: METOPROLOL SUCCINATE XL 25 MG TAB.SR.24H PO SCH (09:00)
[2019-06-29] MEDS: POLYVINYL ALCOHOL OPHT DROPS 15 ML BOTTLE EACHEYE SCH (09:31)
[2019-06-29] MEDS: CALCIUM CARB/VITAMIN D 500MG-200UNITS TABLET PO SCH (09:32)
[2019-06-29] MEDS: CYANOCOBALAMIN 1,000 MCG TABLET PO SCH (09:33)
[2019-06-29] MEDS: ASCORBIC ACID 250 MG TABLET PO SCH (09:34)
[2019-06-29] MEDS: MULTIVIT, IRON, MIN NO. 8, FA TABLET PO SCH (10:02)
[2019-06-29] MEDS: APIXABAN 5 MG TABLET PO SCH ×2 (10:07→17:28)
[2019-06-29] MEDS: POTASSIUM CHLORIDE 10 MEQ TAB.PRT.SR PO SCH (10:12)
[2019-06-29] MEDS: ACETAMINOPHEN 325 MG TABLET PO SCH (10:12)
[2019-06-29] MEDS: BUMETANIDE 1 MG TABLET PO SCH (10:13)
[2019-06-29 11:02] VITALS: BP 110/54
[2019-06-29] MEDS ORDERED: SODIUM PHOSPHATE MM 15 MM in IV DEXTROSE 5% 250 ML IV ONE (11:45)
[2019-06-29] MEDS: CEFTRIAXONE 1 G in IV DEXTROSE 5% 50 ML IV SCH (12:28)
[2019-06-29] MEDS: INSULIN REGULAR, HUMAN 300 UNIT/3 ML VIAL SQ PRN ×2 (12:32→17:33)
--- NOTE | 2019-06-29 12:40 | NUR ---
CLINICAL PHARMACY NOTE: VANCOMYCIN DOSING S: To continue vancomycin dosing on this 84 y/o female for sepsis of unknown origin O: Temp 98.2 BUN 17 Scr 1.4 WBC 11.9 Vanco random level on 06/29 at 12: 8.1 ht 162 cm wt 71 kg Plan Due to decrease renal function (unstable), will continue to dose by random level. Since vanco random level today is 8.1 mcg/ml, will give vanco 1gm IVP x1 today at 1300. Pharmacy shall check srcr in am & decide when to order next random vancomycin level for further dosing. Continue to monitor.
[2019-06-29] MEDS ORDERED: VANCOMYCIN IV 1,000 MG in IV DEXTROSE 5% 250 ML IV ONE (13:00)
[2019-06-29 15:00] VITALS: BP 99/45
[2019-06-29] MEDS: VITAMIN B COMPLEX 1 TABLET PO SCH (15:37)
[2019-06-29] MEDS ORDERED: Medication Not On Formulary EA (Apixaban (Eliquis) 2.5 MG) PO SCH (17:00)
[2019-06-29 20:10] VITALS: BP 111/53
[2019-06-29] MEDS: ARIPIPRAZOLE 5 MG TABLET PO SCH (20:36)
[2019-06-29] MEDS: ATORVASTATIN 40 MG TABLET PO SCH (20:36)
[2019-06-29] MEDS: MIRTAZAPINE 15 MG TABLET PO SCH (20:36)
[2019-06-29] MEDS: INSULIN REGULAR, HUMAN 300 UNITS/3 ML VIAL SQ PRN (20:48)
[2019-06-29] MEDS: INSULIN GLARGINE,HUM 300 UNITS/3 ML CARTRIDGE SQ SCH (20:54)
[2019-06-30] VITALS: BP 120/62
[2019-06-30 04:00] VITALS: BP 105/54
[2019-06-30] MEDS: PANTOPRAZOLE SODIUM 40 MG TABLET.DR PO SCH (06:29)
[2019-06-30] MEDS: LEVOTHYROXINE SODIUM 200 MCG TABLET PO SCH (06:29)
[2019-06-30] MEDS: BLOOD SUGAR DIAGNOSTIC 1 EACH STRIP VI SCH ×4 (06:30→20:38)
[2019-06-30 06:58] LABS: BASOPHILS % (AUTO) 0.2 % (0.0-2.0); EOSINOPHILS % (AUTO) 0.1 % (0.0-7.0); HEMATOCRIT 34.5 % (31.2-41.9); HEMOGLOBIN 11.7 g/dL (10.9-14.3); LYMPHOCYTES # (AUTO) 0.9 K/uL (20.0-40.0); LYMPHOCYTES % (AUTO) 5.3 % (20.5-51.5); MEAN CORPUSCULAR HEMOGLOBIN 32.9 uug (24.7-32.8); MEAN CORPUSCULAR HGB CONC 34 g/dL (32.3-35.6); MEAN CORPUSCULAR VOLUME 96.7 fL (75.5-95.3); MONOCYTES # (AUTO) 1.2 K/uL (2.0-10.0); MONOCYTES % (AUTO) 7.2 % (0.0-11.0); NEUTROPHILS # (AUTO) 14.5 K/uL (1.8-8.9); NEUTROPHILS % (AUTO) 87.2 % (38.5-71.5); PLATELET COUNT (AUTO) 237 K/uL (179-408); RED BLOOD CELL COUNT(AUTO) 3.57 MIL/uL (3.63-4.92); WHITE BLOOD COUNT (AUTO) 16.6 K/uL (3.8-11.8)
--- NOTE | 2019-06-30 07:15 | NUR ---
RECEIVED PATIENT AWAKE ALERT AND AWARE DENIES PAIN OR DISCOMFORTS AT THIS TIME TELE IS AV PACING AT THIS TIME NO S/S OF HYPO/HYPERGLYCEMIC REACTIONS AT THIS TIME CALL LIGHTS AND PERSONAL BELONGINGS ARE WITHIN EASY REACH MADE COMFORTABLE AND WILL CONTINUE TO OBSERVE.
[2019-06-30 07:18] LABS: CARBON DIOXIDE 30 mmol/L (21-32); CHLORIDE 98 mmol/L (98-107); CREATININE 1.4 mg/dL (0.6-1.3); GLUCOSE 101 mg/dL (74-106); POTASSIUM 3.2 mmol/L (3.5-5.1); UREA NITROGEN, BLOOD 16 mg/dL (7-18)
[2019-06-30] MEDS: APIXABAN 5 MG TABLET PO SCH ×2 (08:28→16:38)
[2019-06-30] MEDS: CALCIUM CARB/VITAMIN D 500MG-200UNITS TABLET PO SCH (08:29)
[2019-06-30] MEDS: ACETAMINOPHEN 325 MG TABLET PO SCH (08:29)
[2019-06-30] MEDS: ASCORBIC ACID 250 MG TABLET PO SCH (08:30)
[2019-06-30] MEDS: BUMETANIDE 1 MG TABLET PO SCH (08:30)
[2019-06-30] MEDS: CYANOCOBALAMIN 1,000 MCG TABLET PO SCH (08:30)
[2019-06-30] MEDS: MULTIVIT, IRON, MIN NO. 8, FA TABLET PO SCH (08:30)
[2019-06-30] MEDS: METOPROLOL SUCCINATE XL 25 MG TAB.SR.24H PO SCH (08:31)
[2019-06-30] MEDS: POTASSIUM CHLORIDE 10 MEQ TAB.PRT.SR PO SCH (08:31)
[2019-06-30] MEDS: POLYVINYL ALCOHOL OPHT DROPS 15 ML BOTTLE EACHEYE SCH (08:32)
[2019-06-30] MEDS: VITAMIN B COMPLEX 1 TABLET PO SCH (09:46)
[2019-06-30 11:00] VITALS: BP 93/51
[2019-06-30] MEDS ORDERED: POTASSIUM CHLORIDE 20 MEQ POWDER PACKET PO ONE (11:00)
[2019-06-30] MEDS: CEFTRIAXONE 1 G in IV DEXTROSE 5% 50 ML IV SCH (12:19)
[2019-06-30] MEDS: INSULIN REGULAR, HUMAN 300 UNIT/3 ML VIAL SQ PRN ×2 (12:21→16:36)
--- NOTE | 2019-06-30 13:00 | NUR ---
DR CANNON AWARE THAT PATIENT IS PASSING MUCUS FROM HER RECTUM AND HE STATED TO SEND A SPECIMEN TO THE LAB AND NOTED.
--- NOTE | 2019-06-30 13:44 | NUR ---
CLINICAL PHARMACY NOTE: VANCOMYCIN DOSING S: To continue vancomycin dosing on this 84 y/o female for sepsis of unknown origin O: Temp 99.1 BUN 16 Scr 1.4 WBC 16.6 Vanco random level on 06/29 at 12: 8.1 Vanco random level on 06/30 at 1300: 17.3 ht 162 cm wt 71 kg Plan Due to decrease renal function (unstable), will continue to dose by random level. Dosed another 1gm vanco today at 1500 per random level. Next random ordered for tomorrow at 1500. Will follow and redose as needed. Will monitor
[2019-06-30 15:00] VITALS: BP 90/53
[2019-06-30] MEDS ORDERED: VANCOMYCIN IV 1,000 MG in IV DEXTROSE 5% 250 ML IV ONE (15:00)
[2019-06-30 15:30] LABS: *OCCULT BLOOD STOOL POSITIVE (NEGATIVE)
--- NOTE | 2019-06-30 16:00 | NUR ---
PATIENT ASSISTED AND SHE WALKED WITH THE FRONT WHEEL WALKER IN THE HALLWAY BACK TO HER ROOM ANDB SEATED ON THE CHAIR FOR A WHILE AND ASSISTED BACK INTO BED TOLERATED WELL.
--- NOTE | 2019-06-30 18:00 | NUR ---
REMAIN ON ATB ORDERED WITH NO ADVERSE OR ALLERGIC REACTIONS AT THIS TIME DENIES PAIN OR DISCOMFORTS AFEBRILE MADE COMFORTABLE WILL CONTINUE TO OBSERVE.
[2019-06-30 20:00] VITALS: BP 112/62
[2019-06-30] MEDS: ARIPIPRAZOLE 5 MG TABLET PO SCH (20:31)
[2019-06-30] MEDS: ATORVASTATIN 40 MG TABLET PO SCH (20:31)
[2019-06-30] MEDS: MIRTAZAPINE 15 MG TABLET PO SCH (20:31)
[2019-06-30] MEDS: INSULIN REGULAR, HUMAN 300 UNITS/3 ML VIAL SQ PRN (20:42)
[2019-06-30] MEDS: INSULIN GLARGINE,HUM 300 UNITS/3 ML CARTRIDGE SQ SCH (20:43)
[2019-07-01 04:43] VITALS: BP 90/44
--- NOTE | 2019-07-01 05:00 | NUR ---
NOTED WITH OPEN WOUND ON LEFT INNER BUTTOCK. PER TESTING AND REGULATING TECHNICIAN WHILE CHANGING THE SITE THAT IS NOW OPEN WAS BULGING BUT CLOSED AND INTACT , POSSIBLE ABSCESS. NOW IT HAS ERUPTED AND NOW OPEN WITH PURULENT DRAINAGE. CLEANED WITH NS , PAT DRY , WET TO DRY DRESSING AND PLACED MEPILEX, PHOTO TAKEN, WOUND CONSULT IN PLACE.
[2019-07-01] MEDS: LEVOTHYROXINE SODIUM 200 MCG TABLET PO SCH (06:17)
[2019-07-01] MEDS: PANTOPRAZOLE SODIUM 40 MG TABLET.DR PO SCH (06:17)
--- NOTE | 2019-07-01 06:30 | NUR ---
BS CHECKED 65 , PATIENT ALERT AND EASILY AROUSALBLE. IS ASYMPTOMATIC. GAVE 8OZ OF ORANGE JUICE. PATIENT IS STABLE.
--- NOTE | 2019-07-01 06:50 | NUR ---
CHECKED BP 74/24 HR 74 O2 100 TEMP 97.9 . PATIENT IS SLEEPING BUT IS EASILY ARROUSABLE . ABLE TO STATE NAME, YEAR AND WHERE SHE IS. PER PATIENT IS FEELING LIGHT HEADED. PLACED PATIENT IN [place] POSITION. PLACED PATIENT ON 2L 02. COMMUNICATED WITH MD ABREU. ORDERS TO TRANSFER TO TELE . PATIENT IS PACING A FLUTTER. WILL CONTINUE TO MONITOR.
--- NOTE | 2019-07-01 07:00 | NUR ---
BP IS 88/42 02 98 ON 2L . HR 72 PATIENT IS STILL EASILY ARROUSABLE BUT SLEEPING , CLAIMS SHE IS STILL LIGHT HEADED. STARTED IV FLUIDS 250ML OF NS PER MD ORDER.
[2019-07-01] MEDS: BLOOD SUGAR DIAGNOSTIC 1 EACH STRIP VI SCH ×4 (07:02→20:59)
--- NOTE | 2019-07-01 07:10 | NUR ---
BP HAS IMPROVED 95/51 , PATIENT IS STILL ARROUSABLE BUT SLEEPING. BS CHECKED 75.
[2019-07-01] MEDS ORDERED: IV NORMAL SALINE 250 ML IV ONE ×2 (07:15→11:15)
--- NOTE | 2019-07-01 07:20 | NUR ---
BP IS NOW 101/4 71 , SHE IS PACING A FLUTTER. ENDORSED TO AM SHIFT NURSE. AT THIS TIME PATIENT IS STABLE. ARROUSABLE. ON 02 2L .
--- NOTE | 2019-07-01 07:30 | NUR ---
RECEIVED PATIENT IN BED AWAKE ALERT AND ORIENTED WITH O2 AT 2L/M BY NASAL CANULA WITH SATS AT 99 PERCENT TITRATED O2 TO IL/M AND SAT IS AT 96-96 PERCENT.BLOOD PRESSURE IS FLUCTUATING AT 99-101 SYSTOLIC AND 37-44 DIASTOLIC PATIENT IS PLACED ON TELE PER DR ABREU AND SHE IS PACING WITH FLUTTER. BLOOD SUGAR AFTER RECHECK IS 75 PATIENT IS ASSYMPTOMATIC MADE COMFORTABLE WILL CONTINUE TO OBSERVE.
[2019-07-01 08:04] LABS: BASOPHILS # (AUTO) 0.1 K/uL (0.0-8.0); BASOPHILS % (AUTO) 0.5 % (0.0-2.0); EOSINOPHILS % (AUTO) 0.3 % (0.0-7.0); HEMATOCRIT 31.5 % (31.2-41.9); HEMOGLOBIN 10.6 g/dL (10.9-14.3); LYMPHOCYTES # (AUTO) 0.9 K/uL (20.0-40.0); MEAN CORPUSCULAR HEMOGLOBIN 32.7 uug (24.7-32.8); MEAN CORPUSCULAR HGB CONC 34 g/dL (32.3-35.6); MONOCYTES # (AUTO) 0.9 K/uL (2.0-10.0); MONOCYTES % (AUTO) 6.4 % (0.0-11.0); NEUTROPHILS # (AUTO) 12.4 K/uL (1.8-8.9); NEUTROPHILS % (AUTO) 86.8 % (38.5-71.5); PLATELET COUNT (AUTO) 211 K/uL (179-408); RED BLOOD CELL COUNT(AUTO) 3.25 MIL/uL (3.63-4.92); WHITE BLOOD COUNT (AUTO) 14.3 K/uL (3.8-11.8)
[2019-07-01 08:50] LABS: CARBON DIOXIDE 29 mmol/L (21-32); CHLORIDE 97 mmol/L (98-107); CREATININE 1.6 mg/dL (0.6-1.3); GLUCOSE 83 mg/dL (74-106); UREA NITROGEN, BLOOD 21 mg/dL (7-18)
[2019-07-01 08:54] LABS: ALANINE AMINOTRANSFERASE < 6 U/L (14-59); ALKALINE PHOSPHATASE 101 U/L (50-136); ASPARTATE AMINOTRANSFERASE 12 U/L (15-37); BILIRUBIN,TOTAL 0.4 mg/dL (0.2-1.0); MAGNESIUM 1.6 mg/dL (1.8-2.4); PHOSPHOROUS 2.6 mg/dL (2.5-4.9); TOTAL PROTEIN, SERUM 5.7 g/dL (6.4-8.2)
[2019-07-01] MEDS: POTASSIUM CHLORIDE 10 MEQ TAB.PRT.SR PO SCH (09:05)
[2019-07-01] MEDS: CYANOCOBALAMIN 1,000 MCG TABLET PO SCH (09:05)
[2019-07-01] MEDS: MULTIVIT, IRON, MIN NO. 8, FA TABLET PO SCH (09:05)
[2019-07-01] MEDS: CALCIUM CARB/VITAMIN D 500MG-200UNITS TABLET PO SCH (09:05)
[2019-07-01] MEDS: ASCORBIC ACID 250 MG TABLET PO SCH (09:06)
[2019-07-01] MEDS: VITAMIN B COMPLEX 1 TABLET PO SCH (09:08)
[2019-07-01] MEDS: POLYVINYL ALCOHOL OPHT DROPS 15 ML BOTTLE EACHEYE SCH (09:09)
[2019-07-01] MEDS: APIXABAN 5 MG TABLET PO SCH ×2 (09:10→16:23)
[2019-07-01] MEDS ORDERED: IV NORMAL SALINE 250 ML BAG IV ONE (10:15)
[2019-07-01] MEDS ORDERED: VANCOMYCIN IV 1,000 MG in IV DEXTROSE 5% 250 ML IV SCH (10:15)
[2019-07-01 11:08] LABS: *BILIRUBIN,URIN NEGATIVE (NEGATIVE); *BLOOD, URINE NEGATIVE (NEGATIVE); *CLARITY,URINE CLEAR (CLEAR); *COLOR,URINE YELLOW (YELLOW); *KETONES,URINE NEGATIVE (NEGATIVE); *UROBILINOGEN,URINE 0.2 E.U./dl (NORMAL); LEUKOCYTE ESTERASE ,URINE NEGATIVE (NEGATIVE); NITRITE, URINE NEGATIVE (NEGATIVE); PH,URINE 6.5 (5.0-8.0); UGLUCOSE NEGATIVE (NEGATIVE)
--- NOTE | 2019-07-01 11:20 | NUR ---
LIU CATH INSERTED ORDERED AND URINE COLLECTED AND SENT TO THE LAB
[2019-07-01 11:30] VITALS: BP 97/52
[2019-07-01] MEDS ORDERED: PIPERACILLIN SODIUM/TAZOBACTAM 3.375 G in IV DEXTROSE 5% 50 ML IV SCH (12:00)
--- NOTE | 2019-07-01 12:15 | NUR ---
MID LINE RN HERE AND MID LINE INSERTED AND NS INFUSED ORDERED
[2019-07-01] MEDS: INSULIN REGULAR, HUMAN 300 UNIT/3 ML VIAL SQ PRN ×2 (12:16→16:13)
[2019-07-01] MEDS: ACETAMINOPHEN 325 MG TABLET PO PRN (12:30)
--- NOTE | 2019-07-01 12:36 | NUR ---
WOUND CARE CONSULT: PT PRESENTS WITH LEFT INNER BUTTOCK OPEN ABSCESS WITH SOME INDURATION AND PURULENT DRAINAGE. PT NOTED TO HAVE REDNESS TO INNER BUTTOCK AREA ON ADMISSION. RECOMMEND SURGICAL CONSULT. RECOMMENDATIONS MADE FOR SKIN PROTECTION AND WOUND CARE. DISCUSSED WITH NURSING STAFF. DR ERICK YI NOTIFIED OF SURGICAL CONSULT REQUEST. WILL SEE PRN. SHETH IN AGREEMENT WITH PLAN OF CARE. Addendum: 07/01/19 at 1237 by KARTHIKEYAN HOWARD RN Amended: Links added.
[2019-07-01] MEDS: PIPERACILLIN/TAZO 2.25 G in IV DEXTROSE 5% 50 ML IV SCH ×2 (12:54→17:15)
[2019-07-01] MEDS: MAGNESIUM SULFATE/D5W 100 ML IV SCH ×2 (13:35→14:32)
--- NOTE | 2019-07-01 14:05 | NUR ---
MAGNESSIUM REPLACEMENT IN PROGRESS ORDERED MADE COMFORTABLE AND WILL CONTINUE TO OBSERVE.
[2019-07-01 16:00] VITALS: BP 115/48
--- NOTE | 2019-07-01 16:18 | NUR ---
CLINICAL PHARMACY NOTE: VANCOMYCIN DOSING S: To continue vancomycin dosing on this 84 y/o female for sepsis of unknown origin O: Temp 98.3 BUN 21 Scr 1.6 WBC 14.3 Vanco random level on 06/29 at 12: 8.1 Vanco random level on 06/30 at 1300: 17.3 Vanco random level on 07/01 at 1500: 12.4 ht 162 cm wt 71 kg Plan Due to decrease renal function (unstable), will continue to dose by random level. Dosed another 1gm vanco today at 1700 per random level. Next random ordered for tomorrow at 1400. Will follow and re-dose as needed. Will monitor
[2019-07-01] MEDS ORDERED: VANCOMYCIN IV 1,000 MG in IV DEXTROSE 5% 250 ML IV ONE (17:00)
[2019-07-01] MEDS ORDERED: VANCOMYCIN IV 1 G in PREMIXED 0 EACH IV ONE (17:00)
--- NOTE | 2019-07-01 18:00 | NUR ---
REMAIN NON ATB ORDERED WITH NO ADVERSE OR ALLERGIC REACTIONS AT THIS TIME AWAKE ALERT AND ORIENTED DENIES PAIN OR DISCOMFORTS AT THIS TIME STILL AWAITING FOR SURGICAL CONSULT IMPUT ON HER LEFT INNER BUTTOCKS WOUND TURNED AND REPOSITIONEDE Q2H MADE COMFORTABLE
--- NOTE | 2019-07-01 19:40 | NUR ---
PATIENT ALERT ORIENTED, NO SOB NO CHEST PAIN. PATIENT ON TELE MONITOR V PACING AT THIS TIME. PATIENT HAS NO COMPLAIN OF PAIN NOR DISCOMFORT AT THIS TIME. PATIENT ENCOURAGED TO TURN AND REPOSITION SELF EVERY TWO HOURS, LIU CATH PATENT DRAINING WITH YELLOW COLOR URINE IN MODERATE AMOUNT, CONT TO MONITOR.
[2019-07-01 20:13] VITALS: BP 96/38
[2019-07-01] MEDS: CULTURELLE CAPSULE PO SCH (20:52)
[2019-07-01] MEDS: ARIPIPRAZOLE 5 MG TABLET PO SCH (20:52)
[2019-07-01] MEDS: MIRTAZAPINE 15 MG TABLET PO SCH (20:52)
[2019-07-01] MEDS: ATORVASTATIN 10 MG TABLET PO SCH (20:52)
[2019-07-01] MEDS: INSULIN GLARGINE,HUM 300 UNITS/3 ML CARTRIDGE SQ SCH (21:05)
[2019-07-01] MEDS: INSULIN REGULAR, HUMAN 300 UNITS/3 ML VIAL SQ PRN (21:06)
[2019-07-02 00:11] VITALS: BP 96/42
[2019-07-02] MEDS: PIPERACILLIN/TAZO 2.25 G in IV DEXTROSE 5% 50 ML IV SCH ×4 (01:03→17:03)
[2019-07-02 04:54] VITALS: BP 102/64
[2019-07-02] MEDS: BLOOD SUGAR DIAGNOSTIC 1 EACH STRIP VI SCH ×4 (06:00→20:51)
[2019-07-02] MEDS: LEVOTHYROXINE SODIUM 200 MCG TABLET PO SCH (06:00)
[2019-07-02] MEDS: PANTOPRAZOLE SODIUM 40 MG TABLET.DR PO SCH (06:00)
[2019-07-02 06:10] LABS: BASOPHILS % (AUTO) 0.1 % (0.0-2.0); EOSINOPHILS # (AUTO) 0.1 K/uL (0.0-0.7); EOSINOPHILS % (AUTO) 0.5 % (0.0-7.0); HEMATOCRIT 28.1 % (31.2-41.9); HEMOGLOBIN 9.8 g/dL (10.9-14.3); LYMPHOCYTES # (AUTO) 0.7 K/uL (20.0-40.0); LYMPHOCYTES % (AUTO) 5.1 % (20.5-51.5); MEAN CORPUSCULAR HEMOGLOBIN 33.4 uug (24.7-32.8); MEAN CORPUSCULAR HGB CONC 35 g/dL (32.3-35.6); MEAN CORPUSCULAR VOLUME 95.8 fL (75.5-95.3); MONOCYTES # (AUTO) 0.9 K/uL (2.0-10.0); MONOCYTES % (AUTO) 6.8 % (0.0-11.0); NEUTROPHILS # (AUTO) 11.4 K/uL (1.8-8.9); NEUTROPHILS % (AUTO) 87.5 % (38.5-71.5); PLATELET COUNT (AUTO) 268 K/uL (179-408); RED BLOOD CELL COUNT(AUTO) 2.94 MIL/uL (3.63-4.92)
--- NOTE | 2019-07-02 06:24 | NUR ---
PATIENT ALERT ORIENTED, NO SOB NO CHEST PAIN. PATIENT ON TELE MONITOR V PACING. PATIENT BLOOD SUGAR 56 THIS MORNING ASYMPTOMATIC, GIVEN OJ WILL CONT TO MONITOR. PATIENT KEPT CLEAN AND DRY, KEPT L INNER BUTTOCK WOUND CLEAN AND DRY. PATIENT IS ON LIU CATH DRAINING WITH YELLOW COLOR URINE IN MODERATE AMOUNT. CONT TO MONITOR.
[2019-07-02 06:26] LABS: CARBON DIOXIDE 28 mmol/L (21-32); CHLORIDE 91 mmol/L (98-107); CREATININE 1.7 mg/dL (0.6-1.3); POTASSIUM 3.9 mmol/L (3.5-5.1); UREA NITROGEN, BLOOD 20 mg/dL (7-18)
[2019-07-02 07:06] LABS: GLUCOSE 321 mg/dL (74-106)
--- NOTE | 2019-07-02 07:25 | NUR ---
RECEIVED PATIENT IN BED AWAKE ALERT AND ORIENTED BUT SOMEWHAT FORGETFUL HAVING BLOOD SUGAR ISSUES PATIENT HAS NO SYMPTOMS MD AWARE WILL RECHECK GLUCOSE.LEFT INNER BUT OPEN WOUND IS DRAINING PURULENT FLUIDS SPECIMEN COLLECTED WILL SEND TO THE LAB TX DONE ORDERED PATIENT MADE COMFORTABLE.
--- NOTE | 2019-07-02 07:30 | NUR ---
GLUCOSE LEVEL 321 PER LAB REPORT, WITH ORDER TO REPEAT GLUCOSE TEST STAT.
--- NOTE | 2019-07-02 08:20 | NUR ---
SEEN AND EXAMINED BY NEDA GUZMÁN WITH ORDERS HE IS AWARE OF PURULENT DISCHARGE FROM THE PATIENTS BOIL/ABCESS FROM HER LEFT BUTTOCKS WITH ORDER TO DO CULTURE AND SENSITIVITY OF THE SPECIMEN AND NOTED.
[2019-07-02] MEDS: CYANOCOBALAMIN 1,000 MCG TABLET PO SCH (08:47)
[2019-07-02] MEDS: CALCIUM CARB/VITAMIN D 500MG-200UNITS TABLET PO SCH (08:47)
[2019-07-02] MEDS: CULTURELLE CAPSULE PO SCH ×2 (08:47→20:51)
[2019-07-02] MEDS: MULTIVIT, IRON, MIN NO. 8, FA TABLET PO SCH (08:47)
[2019-07-02] MEDS: POTASSIUM CHLORIDE 10 MEQ TAB.PRT.SR PO SCH (08:47)
[2019-07-02] MEDS: VITAMIN B COMPLEX 1 TABLET PO SCH (08:47)
[2019-07-02] MEDS: ASCORBIC ACID 250 MG TABLET PO SCH (08:47)
[2019-07-02] MEDS: HYDROCODONE/APAP 5-325MG TABLET PO PRN ×3 (08:48→18:48)
[2019-07-02] MEDS: POLYVINYL ALCOHOL OPHT DROPS 15 ML BOTTLE EACHEYE SCH (08:50)
[2019-07-02] MEDS: APIXABAN 5 MG TABLET PO SCH ×2 (08:54→16:49)
--- NOTE | 2019-07-02 09:10 | NUR ---
SEEN BY PHYSICAL THERAPY PATIENT WALKED WITH THE FRONT WHEEL WALKER IN THE HALLWAY AND TOLERATED WELL ASSISTED BACK TO BED AT THIS TIME.
[2019-07-02 11:42] VITALS: BP 104/46
[2019-07-02] MEDS: INSULIN REGULAR, HUMAN 300 UNIT/3 ML VIAL SQ PRN ×2 (12:23→16:51)
--- NOTE | 2019-07-02 15:00 | NUR ---
PATIENT WAS SEEN BY [facility] GENERAL SURGERY COUPON CLERK WITH NEW ORDERS AND NOTED.
--- NOTE | 2019-07-02 15:05 | NUR ---
CLINICAL PHARMACY NOTE: VANCOMYCIN DOSING S: To continue vancomycin dosing on this 84 y/o female for sepsis of unknown origin O: Temp 98.6 BUN 20 Scr 1.7 WBC 13 Vanco random level on 06/29 at 12: 8.1 Vanco random level on 06/30 at 1300: 17.3 Vanco random level on 07/01 at 1500: 12.4 Vanco random level on 07/02 at 1400: 16.5 ht 162 cm wt 71 kg Plan Due to decrease renal function (unstable), will continue to dose by random level. Dosed another 1gm vanco today at 1500 per random level. Next random ordered for tomorrow at 1500. Will follow and re-dose as needed. Will monitor
[2019-07-02] MEDS ORDERED: VANCOMYCIN IV 1 G in PREMIXED 0 EACH IV ONE (16:00)
[2019-07-02 16:21] VITALS: BP 100/40
[2019-07-02] MEDS: SODIUM HYPOCHLORITE 0.25% 480 ML BOTTLE TOP SCH (17:03)
--- NOTE | 2019-07-02 18:27 | NUR ---
NEW ORDERS FOR CT ABDOMEN AND PELVIS WITH CONTRAST SPOKE WITH JOAO BRAXTON PATIENT ALREADY HAD DINNER AND SHE STATED IT WAS OKAY TO DO THE CT IN AM PATIENT IS DIABETIC AND RECEIVED INSULIN AND ATE DINNER. RADIOLOGY AWARE SPOKE WITH
[2019-07-02 20:20] VITALS: BP 114/52
--- NOTE | 2019-07-02 20:38 | NUR ---
PATIENT STILL COMPLAIN OF LOTS OF PAIN ON L BUTTOCK BOIL, NOTIFY DR. SHAW WITH ORDER OF MORPHINE 2MG EVERY 3 HOURS NEEDS FOR MODERATE TO SEVERE PAIN.
[2019-07-02] MEDS: ATORVASTATIN 10 MG TABLET PO SCH (20:51)
[2019-07-02] MEDS: ARIPIPRAZOLE 5 MG TABLET PO SCH (20:51)
[2019-07-02] MEDS: MIRTAZAPINE 15 MG TABLET PO SCH (20:51)
[2019-07-02] MEDS: INSULIN GLARGINE,HUM 300 UNITS/3 ML CARTRIDGE SQ SCH (21:01)
[2019-07-03] VITALS (7 sets, daily range): BP systolic 92–128; BP diastolic 31–86
[2019-07-03] MEDS: PIPERACILLIN/TAZO 2.25 G in IV DEXTROSE 5% 50 ML IV SCH ×5 (00:11→23:57)
[2019-07-03] MEDS: MORPHINE SULFATE 2 MG/1 ML DISP.SYRIN IV PRN ×4 (00:25→20:50)
[2019-07-03] MEDS: LEVOTHYROXINE SODIUM 200 MCG TABLET PO SCH ×2 (06:12→08:40)
[2019-07-03] MEDS: PANTOPRAZOLE SODIUM 40 MG TABLET.DR PO SCH (06:13)
[2019-07-03] MEDS: BLOOD SUGAR DIAGNOSTIC 1 EACH STRIP VI SCH ×4 (06:18→20:18)
--- NOTE | 2019-07-03 06:38 | NUR ---
PATIENT ALERT ORIENTED, NO SOB NO CHEST PAIN, ON TELE MONITORING V PACING WITH UNDERLYING AFIB AT 72. PATIENT BLOOD SUGAR 46 GIVEN ORANGE JUICE, AND CRACKERS AND RECHECK SUGAR WENT UP TO 67. PATIENT ASYMPTOMATIC AT THIS TIME. CONT TO MONITOR. PATIENT COMPLAIN OF PAIN OF ON L BUTTOCK ABCESS, MEDICATED PATIENT. CALL LIGHT WITHIN REACH.
[2019-07-03 06:54] LABS: BASOPHILS % (AUTO) 0.3 % (0.0-2.0); EOSINOPHILS % (AUTO) 0.4 % (0.0-7.0); HEMATOCRIT 25.1 % (31.2-41.9); HEMOGLOBIN 8.6 g/dL (10.9-14.3); LYMPHOCYTES # (AUTO) 0.8 K/uL (20.0-40.0); LYMPHOCYTES % (AUTO) 6.1 % (20.5-51.5); MEAN CORPUSCULAR HEMOGLOBIN 32.5 uug (24.7-32.8); MEAN CORPUSCULAR HGB CONC 34 g/dL (32.3-35.6); MEAN CORPUSCULAR VOLUME 94.9 fL (75.5-95.3); MONOCYTES # (AUTO) 1.1 K/uL (2.0-10.0); MONOCYTES % (AUTO) 8.4 % (0.0-11.0); NEUTROPHILS % (AUTO) 84.8 % (38.5-71.5); PLATELET COUNT (AUTO) 255 K/uL (179-408); RED BLOOD CELL COUNT(AUTO) 2.64 MIL/uL (3.63-4.92)
[2019-07-03 07:02] LABS: CARBON DIOXIDE 28 mmol/L (21-32); CHLORIDE 97 mmol/L (98-107); CREATININE 1.6 mg/dL (0.6-1.3); GLUCOSE 245 mg/dL (74-106); MAGNESIUM 1.8 mg/dL (1.8-2.4); PHOSPHOROUS 2.9 mg/dL (2.5-4.9); POTASSIUM 4.3 mmol/L (3.5-5.1); UREA NITROGEN, BLOOD 18 mg/dL (7-18)
--- NOTE | 2019-07-03 07:30 | NUR ---
Patient calm and comfortable with no signs of distress; patient with call light with in reach, patient will continue to be monitored.
--- NOTE | 2019-07-03 07:39 | NUR ---
Patient resting in bed with no signs of distress; patient call light with in reach; patient will continue to be monitored .
[2019-07-03] MEDS: CALCIUM CARB/VITAMIN D 500MG-200UNITS TABLET PO SCH (08:40)
[2019-07-03] MEDS: ASCORBIC ACID 250 MG TABLET PO SCH (08:40)
[2019-07-03] MEDS: CYANOCOBALAMIN 1,000 MCG TABLET PO SCH (08:42)
[2019-07-03] MEDS: MULTIVIT, IRON, MIN NO. 8, FA TABLET PO SCH (08:43)
[2019-07-03] MEDS: POTASSIUM CHLORIDE 10 MEQ TAB.PRT.SR PO SCH (08:43)
[2019-07-03] MEDS: CULTURELLE CAPSULE PO SCH ×2 (08:44→20:15)
[2019-07-03] MEDS: VITAMIN B COMPLEX 1 TABLET PO SCH (08:47)
[2019-07-03] MEDS: APIXABAN 5 MG TABLET PO SCH ×2 (08:47→17:08)
[2019-07-03] MEDS: POLYVINYL ALCOHOL OPHT DROPS 15 ML BOTTLE EACHEYE SCH (08:48)
[2019-07-03] MEDS: SODIUM HYPOCHLORITE 0.25% 480 ML BOTTLE TOP SCH (08:49)
--- NOTE | 2019-07-03 10:00 | NUR ---
Patient scheduled to have ct with contrast of the abdomen and pelvis but ; radiology reported that patient creatine at 1.6 and radiologist recommend patient to have ct scan without contrast; Della surgical HOBBER notified and ; gave orders for patient to have ct scan without contrast. Orders received and carried out.
[2019-07-03] MEDS: INSULIN REGULAR, HUMAN 300 UNIT/3 ML VIAL SQ PRN ×2 (12:26→17:10)
--- NOTE | 2019-07-03 13:00 | NUR ---
GI doctor came to visit patient for consult as patient with trending down hemoglobin and positive occult blood states he will do endoscopy once patient wound is more stable.
--- NOTE | 2019-07-03 13:08 | NUR ---
GI doctor requested for iron to be d/c but patient not on iron only iron is only multivitamin containing iron. MD Notified if multivitamin to be d/c ?. awaiting response.
--- NOTE | 2019-07-03 15:20 | NUR ---
CLINICAL PHARMACY NOTE: VANCOMYCIN DOSING S: To continue vancomycin dosing on this 84 y/o female for sepsis of unknown origin O: Temp 98 BUN 18 Scr 1.6 WBC 13 Vanco random level on 06/29 at 12: 8.1 Vanco random level on 06/30 at 1300: 17.3 Vanco random level on 07/01 at 1500: 12.4 Vanco random level on 07/02 at 1400: 16.5 Vanco random level on 07/03 at 1500: 19.1 ht 162 cm wt 71 kg Plan Due to decrease renal function (unstable), will continue to dose by random level. Dosed another 1gm vanco today at 2100 per random level. Pharmacist shall review the srcr in am & decide when to order next random level for further dosing. Will monitor
--- NOTE | 2019-07-03 19:00 | NUR ---
Patient calm through out shift with no signs of distress, GI doctor placed orders to d/c multivitamin with iron; ct results relayed to surgical inspector assemblies and installations and orders were placed for patient to be on npo status for ind of perianal abscess tomorrow. Dressing changed of wound done ;report given to oncoming nurse.
[2019-07-03] MEDS ORDERED: IV NORMAL SALINE 500 ML IV ONE (20:00)
[2019-07-03] MEDS: ACETAMINOPHEN 325 MG TABLET PO PRN (20:15)
[2019-07-03] MEDS: ATORVASTATIN 10 MG TABLET PO SCH (20:15)
[2019-07-03] MEDS: ARIPIPRAZOLE 5 MG TABLET PO SCH (20:15)
[2019-07-03] MEDS: MIRTAZAPINE 15 MG TABLET PO SCH (20:15)
[2019-07-03] MEDS: INSULIN REGULAR, HUMAN 300 UNITS/3 ML VIAL SQ PRN (20:20)
[2019-07-03] MEDS: INSULIN GLARGINE,HUM 300 UNITS/3 ML CARTRIDGE SQ SCH (20:22)
--- NOTE | 2019-07-03 20:40 | NUR ---
Patient noted w/ BP-92/44 and complaining of 8/10 pain on her sacral area, n.o from [facility] PROFESSOR OF NURSING for NS 0.9 500ml bolus. BP rechecked went up to 109/50.
[2019-07-03] MEDS ORDERED: VANCOMYCIN IV 1 G in PREMIXED 0 EACH IV ONE (21:00)
[2019-07-04] VITALS: BP 121/44
[2019-07-04 04:58] VITALS: BP 114/56
[2019-07-04] MEDS: PIPERACILLIN/TAZO 2.25 G in IV DEXTROSE 5% 50 ML IV SCH ×4 (06:06→23:29)
[2019-07-04] MEDS: PANTOPRAZOLE SODIUM 40 MG TABLET.DR PO SCH (06:07)
--- NOTE | 2019-07-04 06:32 | NUR ---
Patient slept well. No complaints of pain at this time. Dressing on sacral area changed. On NPO for I&D of perianal abscess this AM. Consent signed. Pre-op checklist done. All needs attended. Will endorse accordingly
[2019-07-04] MEDS: BLOOD SUGAR DIAGNOSTIC 1 EACH STRIP VI SCH ×4 (06:34→20:23)
--- NOTE | 2019-07-04 07:35 | NUR ---
Received patient in bed, awake and verbally responsive. No signs of distress noted. No SOB. No complain of Pain of discomfort. patient has a I and D procedure at 2PM, on NPO after midnight. Spoke to Brandi from Surgery, patient will be sheepskin pickler at 1:30PM. All needs attended and mety. Will continue to monitor.
[2019-07-04 07:57] LABS: BASOPHILS % (AUTO) 0.4 % (0.0-2.0); EOSINOPHILS # (AUTO) 0.1 K/uL (0.0-0.7); EOSINOPHILS % (AUTO) 1.3 % (0.0-7.0); MEAN CORPUSCULAR HEMOGLOBIN 33.3 uug (24.7-32.8); MEAN CORPUSCULAR HGB CONC 35 g/dL (32.3-35.6); MEAN CORPUSCULAR VOLUME 96.2 fL (75.5-95.3); MONOCYTES # (AUTO) 0.8 K/uL (2.0-10.0); MONOCYTES % (AUTO) 9.2 % (0.0-11.0); NEUTROPHILS # (AUTO) 6.9 K/uL (1.8-8.9); NEUTROPHILS % (AUTO) 78.1 % (38.5-71.5); PLATELET COUNT (AUTO) 207 K/uL (179-408); RED BLOOD CELL COUNT(AUTO) 3.01 MIL/uL (3.63-4.92); WHITE BLOOD COUNT (AUTO) 8.8 K/uL (3.8-11.8)
[2019-07-04] MEDS: POTASSIUM CHLORIDE 10 MEQ TAB.PRT.SR PO SCH (08:44)
[2019-07-04] MEDS: CYANOCOBALAMIN 1,000 MCG TABLET PO SCH (08:44)
[2019-07-04] MEDS: CALCIUM CARB/VITAMIN D 500MG-200UNITS TABLET PO SCH (08:44)
[2019-07-04] MEDS: ASCORBIC ACID 250 MG TABLET PO SCH (08:44)
[2019-07-04] MEDS: CULTURELLE CAPSULE PO SCH ×2 (08:44→20:19)
[2019-07-04] MEDS: VITAMIN B COMPLEX 1 TABLET PO SCH (08:44)
[2019-07-04] MEDS: POLYVINYL ALCOHOL OPHT DROPS 15 ML BOTTLE EACHEYE SCH (08:46)
[2019-07-04] MEDS: APIXABAN 5 MG TABLET PO SCH ×2 (09:00→17:00)
[2019-07-04] MEDS: SODIUM HYPOCHLORITE 0.25% 480 ML BOTTLE TOP SCH (09:29)
[2019-07-04] MEDS ORDERED: POLYMYXIN B SULFATE 500,000 UNITS, BACITRACIN 50,000 UNITS, NORMAL SALINE 20 ML MC ONE ×3 (09:45)
[2019-07-04 10:41] LABS: ALANINE AMINOTRANSFERASE 7 U/L (14-59); ALKALINE PHOSPHATASE 115 U/L (50-136); ASPARTATE AMINOTRANSFERASE 18 U/L (15-37); BILIRUBIN,TOTAL 0.4 mg/dL (0.2-1.0); CARBON DIOXIDE 28 mmol/L (21-32); CREATININE 1.6 mg/dL (0.6-1.3); GLUCOSE 173 mg/dL (74-106); MAGNESIUM 2.2 mg/dL (1.8-2.4); PHOSPHOROUS 3.5 mg/dL (2.5-4.9); TOTAL PROTEIN, SERUM 5.9 g/dL (6.4-8.2); UREA NITROGEN, BLOOD 20 mg/dL (7-18)
[2019-07-04 10:45] LABS: CHLORIDE 97 mmol/L (98-107); POTASSIUM 5.1 mmol/L (3.5-5.1)
[2019-07-04 11:35] VITALS: BP 108/59
[2019-07-04] MEDS ORDERED: FUROSEMIDE 20 MG/2 ML VIAL IV ONE (13:00)
--- NOTE | 2019-07-04 14:28 | NUR ---
Patient was Picked up by 2RN for I and D Procedure.
[2019-07-04 14:30] VITALS: BP 108/55
[2019-07-04] MEDS ORDERED: DEXAMETHASONE SOD PHOSPHATE 4 MG INJ IV ONE (15:01)
[2019-07-04] MEDS ORDERED: CEFAZOLIN 1 G VIAL IM ONE (15:01)
[2019-07-04] MEDS ORDERED: ONDANSETRON 4 MG/2 ML VIAL IV ONE (15:01)
[2019-07-04] MEDS ORDERED: METRONIDAZOLE 500 MG/NS 100 ML PIGGYBACK IV ONE (15:01)
--- NOTE | 2019-07-04 15:16 | NUR ---
CLINICAL PHARMACY NOTE: VANCOMYCIN DOSING S: To continue vancomycin dosing on this 84 y/o female for sepsis of unknown origin O: Temp 98.3 BUN 20 Scr 1.6 WBC 8.8 Vanco random level on 06/29 at 12: 8.1 Vanco random level on 06/30 at 1300: 17.3 Vanco random level on 07/01 at 1500: 12.4 Vanco random level on 07/02 at 1400: 16.5 Vanco random level on 07/03 at 1500: 19.1 ht 162 cm wt 71 kg Plan Due to decreased renal function (unstable), will continue to dose by random level. Dosed another 1gm vanco yesterday at 2100 per random level. Next Vancomycin random is on order for tomorrow am with am labs. Will follow the level for further dosing.
[2019-07-04] MEDS ORDERED: FENTANYL CITRATE 100 MCG/2 ML AMPUL ONE (15:54)
--- NOTE | 2019-07-04 17:10 | NUR ---
Patient came back from Surgery. with Order to resume previous medications, Hold Eliquis tonight, and Advance diet as tolerated.
[2019-07-04] MEDS: MORPHINE SULFATE 2 MG/1 ML DISP.SYRIN IV PRN (17:18)
[2019-07-04] MEDS: INSULIN REGULAR, HUMAN 300 UNIT/3 ML VIAL SQ PRN ×2 (17:23→20:21)
[2019-07-04 17:36] VITALS: BP 112/44
--- NOTE | 2019-07-04 18:21 | NUR ---
Patient is awake, alert and verbally responsive. No signs of distress noted. No SOB. Pain medication given as ordered. Seen and examined by Dr. Jarrett with New Order of Lasix 20mg x1. Patient went to I and D Surgery, NO complications noted. All due medications given as ordered. Will endorse to Oncoming Nurse.
[2019-07-04 20:07] VITALS: BP 93/51
[2019-07-04] MEDS: MIRTAZAPINE 15 MG TABLET PO SCH (20:19)
[2019-07-04] MEDS: ARIPIPRAZOLE 5 MG TABLET PO SCH (20:19)
[2019-07-04] MEDS: ATORVASTATIN 10 MG TABLET PO SCH (20:19)
[2019-07-04] MEDS: INSULIN GLARGINE,HUM 300 UNITS/3 ML CARTRIDGE SQ SCH (20:23)
--- NOTE | 2019-07-05 01:30 | NUR ---
Pt rested well in between care; denied any pain; needs attended; report given to ANTWAN Lopez who will assume care.
[2019-07-05 05:01] VITALS: BP 113/55
[2019-07-05] MEDS: PIPERACILLIN/TAZO 2.25 G in IV DEXTROSE 5% 50 ML IV SCH ×3 (05:51→18:07)
[2019-07-05 06:32] LABS: ALANINE AMINOTRANSFERASE < 6 U/L (14-59); ALKALINE PHOSPHATASE 96 U/L (50-136); ASPARTATE AMINOTRANSFERASE 10 U/L (15-37); BILIRUBIN,TOTAL 0.4 mg/dL (0.2-1.0); CARBON DIOXIDE 31 mmol/L (21-32); CHLORIDE 97 mmol/L (98-107); CREATININE 1.7 mg/dL (0.6-1.3); MAGNESIUM 2.1 mg/dL (1.8-2.4); PHOSPHOROUS 4.3 mg/dL (2.5-4.9); POTASSIUM 5.6 mmol/L (3.5-5.1); TOTAL PROTEIN, SERUM 5.6 g/dL (6.4-8.2); UREA NITROGEN, BLOOD 26 mg/dL (7-18)
[2019-07-05] MEDS: PANTOPRAZOLE SODIUM 40 MG TABLET.DR PO SCH (06:40)
[2019-07-05] MEDS: LEVOTHYROXINE SODIUM 200 MCG TABLET PO SCH (06:40)
[2019-07-05 06:42] LABS: GLUCOSE 352 mg/dL (74-106)
[2019-07-05 06:58] LABS: BASOPHILS % (AUTO) 0.1 % (0.0-2.0); EOSINOPHILS % (AUTO) 0.1 % (0.0-7.0); HEMATOCRIT 26.2 % (31.2-41.9); LYMPHOCYTES # (AUTO) 0.4 K/uL (20.0-40.0); LYMPHOCYTES % (AUTO) 4.8 % (20.5-51.5); MEAN CORPUSCULAR HEMOGLOBIN 33.1 uug (24.7-32.8); MEAN CORPUSCULAR HGB CONC 34 g/dL (32.3-35.6); MEAN CORPUSCULAR VOLUME 96.8 fL (75.5-95.3); MONOCYTES # (AUTO) 0.4 K/uL (2.0-10.0); RED BLOOD CELL COUNT(AUTO) 2.71 MIL/uL (3.63-4.92); WHITE BLOOD COUNT (AUTO) 8.9 K/uL (3.8-11.8)
[2019-07-05 07:10] LABS: PLATELET COUNT (AUTO) 290 K/uL (179-408)
[2019-07-05] MEDS: BLOOD SUGAR DIAGNOSTIC 1 EACH STRIP VI SCH ×4 (07:28→20:58)
[2019-07-05] MEDS: POTASSIUM CHLORIDE 10 MEQ TAB.PRT.SR PO SCH (09:13)
[2019-07-05] MEDS: CALCIUM CARB/VITAMIN D 500MG-200UNITS TABLET PO SCH (09:13)
[2019-07-05] MEDS: CYANOCOBALAMIN 1,000 MCG TABLET PO SCH (09:13)
[2019-07-05] MEDS: CULTURELLE CAPSULE PO SCH ×2 (09:13→20:37)
[2019-07-05] MEDS: ASCORBIC ACID 250 MG TABLET PO SCH (09:13)
[2019-07-05] MEDS: INSULIN REGULAR, HUMAN 300 UNIT/3 ML VIAL SQ PRN ×4 (09:16→17:26)
[2019-07-05] MEDS: POLYVINYL ALCOHOL OPHT DROPS 15 ML BOTTLE EACHEYE SCH (09:41)
[2019-07-05] MEDS: VITAMIN B COMPLEX 1 TABLET PO SCH (09:41)
[2019-07-05] MEDS: APIXABAN 5 MG TABLET PO SCH ×2 (09:43→17:22)
[2019-07-05] MEDS ORDERED: SODIUM POLYSTYRENE SULFONATE 15 G/60 ML LIQUID UDC PO ONE (09:45)
[2019-07-05] MEDS: SODIUM HYPOCHLORITE 0.25% 480 ML BOTTLE TOP SCH (09:48)
[2019-07-05] MEDS: BUMETANIDE 1 MG TABLET PO SCH (10:26)
[2019-07-05 11:34] VITALS: BP 121/67
[2019-07-05] MEDS ORDERED: METOLAZONE 5 MG TABLET PO ONE (12:15)
--- NOTE | 2019-07-05 15:30 | NUR ---
Dressing changed. Aerobic & anaerobic cultures done & sent to lab.
[2019-07-05 16:20] VITALS: BP 98/47
[2019-07-05] MEDS: MORPHINE SULFATE 2 MG/1 ML DISP.SYRIN IV PRN ×2 (16:59→20:42)
[2019-07-05 20:00] VITALS: BP 99/40
[2019-07-05] MEDS: ARIPIPRAZOLE 5 MG TABLET PO SCH (20:37)
[2019-07-05] MEDS: MIRTAZAPINE 15 MG TABLET PO SCH (20:40)
[2019-07-05] MEDS: ATORVASTATIN 10 MG TABLET PO SCH (20:43)
[2019-07-05] MEDS: INSULIN GLARGINE,HUM 300 UNITS/3 ML CARTRIDGE SQ SCH (21:59)
[2019-07-05] MEDS: INSULIN REGULAR, HUMAN 300 UNITS/3 ML VIAL SQ PRN (22:06)
[2019-07-06] VITALS: BP 103/59
[2019-07-06] MEDS: PIPERACILLIN/TAZO 2.25 G in IV DEXTROSE 5% 50 ML IV SCH ×5 (00:11→23:59)
[2019-07-06 04:00] VITALS: BP 96/56
[2019-07-06 04:55] VITALS: BP 96/56
--- NOTE | 2019-07-06 05:48 | NUR ---
patient slept well at night after prn Ambien.
[2019-07-06 06:29] LABS: BASOPHILS % (AUTO) 0.4 % (0.0-2.0); EOSINOPHILS # (AUTO) 0.1 K/uL (0.0-0.7); EOSINOPHILS % (AUTO) 1.3 % (0.0-7.0); HEMATOCRIT 25.5 % (31.2-41.9); HEMOGLOBIN 8.6 g/dL (10.9-14.3); LYMPHOCYTES # (AUTO) 1.3 K/uL (20.0-40.0); MEAN CORPUSCULAR HEMOGLOBIN 32.5 uug (24.7-32.8); MEAN CORPUSCULAR HGB CONC 34 g/dL (32.3-35.6); MEAN CORPUSCULAR VOLUME 96.2 fL (75.5-95.3); MONOCYTES # (AUTO) 0.8 K/uL (2.0-10.0); MONOCYTES % (AUTO) 10.6 % (0.0-11.0); NEUTROPHILS % (AUTO) 69.7 % (38.5-71.5); PLATELET COUNT (AUTO) 337 K/uL (179-408); RED BLOOD CELL COUNT(AUTO) 2.65 MIL/uL (3.63-4.92); WHITE BLOOD COUNT (AUTO) 7.1 K/uL (3.8-11.8)
[2019-07-06] MEDS: LEVOTHYROXINE SODIUM 200 MCG TABLET PO SCH (06:40)
[2019-07-06] MEDS: PANTOPRAZOLE SODIUM 40 MG TABLET.DR PO SCH (06:40)
[2019-07-06] MEDS: MORPHINE SULFATE 2 MG/1 ML DISP.SYRIN IV PRN ×3 (06:41→19:41)
[2019-07-06 06:45] LABS: CARBON DIOXIDE 32 mmol/L (21-32); CHLORIDE 101 mmol/L (98-107); CREATININE 1.7 mg/dL (0.6-1.3); GLUCOSE 111 mg/dL (74-106); MAGNESIUM 2.1 mg/dL (1.8-2.4); PHOSPHOROUS 3.5 mg/dL (2.5-4.9); POTASSIUM 4.6 mmol/L (3.5-5.1); UREA NITROGEN, BLOOD 21 mg/dL (7-18)
[2019-07-06] MEDS: BLOOD SUGAR DIAGNOSTIC 1 EACH STRIP VI SCH ×4 (06:54→20:56)
--- NOTE | 2019-07-06 07:13 | NUR ---
Dressing is soiled with feces, soaked with blood. Dressing and packing was changed per order. Tolerated well. Took morning meds with orange juice. During the repositioning the [place] drained 650 ml
--- NOTE | 2019-07-06 07:30 | NUR ---
Patient calm and comfortable with no signs of distress; patient call light with in reach. Patient will continue to be monitored.
[2019-07-06] MEDS: POLYVINYL ALCOHOL OPHT DROPS 15 ML BOTTLE EACHEYE SCH (09:09)
[2019-07-06] MEDS: CULTURELLE CAPSULE PO SCH ×2 (09:09→20:57)
[2019-07-06] MEDS: ASCORBIC ACID 250 MG TABLET PO SCH (09:09)
[2019-07-06] MEDS: BUMETANIDE 1 MG TABLET PO SCH (09:09)
[2019-07-06] MEDS: CYANOCOBALAMIN 1,000 MCG TABLET PO SCH (09:09)
[2019-07-06] MEDS: VITAMIN B COMPLEX 1 TABLET PO SCH (09:10)
[2019-07-06] MEDS: CALCIUM CARB/VITAMIN D 500MG-200UNITS TABLET PO SCH (09:10)
[2019-07-06] MEDS: APIXABAN 5 MG TABLET PO SCH ×2 (09:11→17:16)
[2019-07-06] MEDS: SODIUM HYPOCHLORITE 0.25% 480 ML BOTTLE TOP SCH (09:13)
[2019-07-06] MEDS ORDERED: LOPERAMIDE HCL 2 MG CAPSULE PO PRN (10:15)
[2019-07-06 11:19] VITALS: BP 100/50
[2019-07-06] MEDS: INSULIN REGULAR, HUMAN 300 UNIT/3 ML VIAL SQ PRN ×2 (12:38→17:18)
[2019-07-06 15:46] VITALS: BP 100/55
--- NOTE | 2019-07-06 19:17 | NUR ---
Patient had x2 loose bowel movements through out shift; dressing changed and wound packed on R buttock. Patient given morphine for pain management. Patient with stable vital signs through out shift. Patient at baseline mental status. Report given to oncoming nurse.
--- NOTE | 2019-07-06 19:30 | NUR ---
Received patient awake and alert in bed. No signs of acute distress noted. Complained of 6/10 pain to the left buttocks, will medicate with PRN pain medication. No complaints of SOB, patient is on 2L NC. Vitals WNL. SCD pumps intact. Safety measures initiated. Bed is low and locked, call light within reach. Will continue to monitor.
[2019-07-06 19:50] VITALS: BP 98/39
[2019-07-06] MEDS: MIRTAZAPINE 15 MG TABLET PO SCH (20:56)
[2019-07-06] MEDS: ARIPIPRAZOLE 5 MG TABLET PO SCH (20:57)
[2019-07-06] MEDS: ATORVASTATIN 10 MG TABLET PO SCH (20:57)
[2019-07-06] MEDS: INSULIN GLARGINE,HUM 300 UNITS/3 ML CARTRIDGE SQ SCH (20:59)
[2019-07-07] VITALS: BP 95/45
[2019-07-07] MEDS: MORPHINE SULFATE 2 MG/1 ML DISP.SYRIN IV PRN ×3 (00:09→10:03)
[2019-07-07 04:00] VITALS: BP 95/46
--- NOTE | 2019-07-07 05:41 | NUR ---
Patient slept well. Complained of pain with PRN pain medication given and was effective. Wound treatment done. Medications given as ordered and tolerated well. Safety measures given. Will endorse to next shift.
[2019-07-07] MEDS: PIPERACILLIN/TAZO 2.25 G in IV DEXTROSE 5% 50 ML IV SCH ×3 (06:08→17:11)
[2019-07-07] MEDS: PANTOPRAZOLE SODIUM 40 MG TABLET.DR PO SCH (06:09)
[2019-07-07] MEDS: LEVOTHYROXINE SODIUM 200 MCG TABLET PO SCH (06:09)
[2019-07-07] MEDS: BLOOD SUGAR DIAGNOSTIC 1 EACH STRIP VI SCH ×3 (06:39→16:53)
[2019-07-07 07:08] LABS: BASOPHILS % (AUTO) 0.5 % (0.0-2.0); EOSINOPHILS # (AUTO) 0.1 K/uL (0.0-0.7); EOSINOPHILS % (AUTO) 1.3 % (0.0-7.0); HEMOGLOBIN 8.4 g/dL (10.9-14.3); LYMPHOCYTES # (AUTO) 1.4 K/uL (20.0-40.0); LYMPHOCYTES % (AUTO) 20.1 % (20.5-51.5); MEAN CORPUSCULAR HEMOGLOBIN 32.5 uug (24.7-32.8); MEAN CORPUSCULAR HGB CONC 35 g/dL (32.3-35.6); MEAN CORPUSCULAR VOLUME 93.4 fL (75.5-95.3); MONOCYTES # (AUTO) 0.7 K/uL (2.0-10.0); MONOCYTES % (AUTO) 9.9 % (0.0-11.0); NEUTROPHILS # (AUTO) 4.9 K/uL (1.8-8.9); NEUTROPHILS % (AUTO) 68.2 % (38.5-71.5); PLATELET COUNT (AUTO) 337 K/uL (179-408); RED BLOOD CELL COUNT(AUTO) 2.57 MIL/uL (3.63-4.92); WHITE BLOOD COUNT (AUTO) 7.1 K/uL (3.8-11.8)
[2019-07-07 07:09] LABS: ALKALINE PHOSPHATASE 87 U/L (50-136); ASPARTATE AMINOTRANSFERASE 11 U/L (15-37); BILIRUBIN,TOTAL 0.4 mg/dL (0.2-1.0); CARBON DIOXIDE 35 mmol/L (21-32); CHLORIDE 101 mmol/L (98-107); CREATININE 1.5 mg/dL (0.6-1.3); GLUCOSE 96 mg/dL (74-106); MAGNESIUM 1.8 mg/dL (1.8-2.4); PHOSPHOROUS 3.4 mg/dL (2.5-4.9); POTASSIUM 4.3 mmol/L (3.5-5.1); TOTAL PROTEIN, SERUM 5.7 g/dL (6.4-8.2); UREA NITROGEN, BLOOD 19 mg/dL (7-18)
--- NOTE | 2019-07-07 07:30 | NUR ---
Patient calm and comfortable with no signs of distress; Patient with call light with in reach; patient will continue to be monitored.
[2019-07-07 08:34] LABS: ALANINE AMINOTRANSFERASE 7 U/L (14-59)
[2019-07-07] MEDS: POLYVINYL ALCOHOL OPHT DROPS 15 ML BOTTLE EACHEYE SCH (08:49)
[2019-07-07] MEDS: APIXABAN 5 MG TABLET PO SCH ×2 (08:50→17:05)
[2019-07-07] MEDS: CYANOCOBALAMIN 1,000 MCG TABLET PO SCH (08:51)
[2019-07-07] MEDS: CALCIUM CARB/VITAMIN D 500MG-200UNITS TABLET PO SCH (08:51)
[2019-07-07] MEDS: BUMETANIDE 1 MG TABLET PO SCH (08:51)
[2019-07-07] MEDS: CULTURELLE CAPSULE PO SCH (08:52)
[2019-07-07] MEDS: ASCORBIC ACID 250 MG TABLET PO SCH (08:52)
[2019-07-07] MEDS: VITAMIN B COMPLEX 1 TABLET PO SCH (08:52)
[2019-07-07] MEDS: SODIUM HYPOCHLORITE 0.25% 480 ML BOTTLE TOP SCH (08:53)
[2019-07-07 11:21] VITALS: BP 91/41
[2019-07-07] MEDS: INSULIN REGULAR, HUMAN 300 UNIT/3 ML VIAL SQ PRN ×2 (12:19→17:12)
[2019-07-07] MEDS ORDERED: PIPE2.257 IV (15:08)
[2019-07-07] MEDS ORDERED: BUME1TAB8 PO (15:10)
[2019-07-07 15:20] VITALS: BP 97/58
--- NOTE | 2019-07-07 16:25 | NUR ---
Patient calm and comfortable with no signs distress; patient will be transferred down to ARU ; Patient medication compliant throughout shift. Patient educated on reasoning for discharge to Rehabilitation unit. Patient verbalized understanding. Patient with stable vital signs. Report given to ARU nurse.
[2019-07-07] MEDS ORDERED: METRONIDAZOLE 500 MG/NS 100 ML PIGGYBACK IV ONE (18:09)
[2019-07-08] MEDS ORDERED: ARIP5TAB10 PO (17:21)
[2019-07-08] MEDS ORDERED: ATOR10TA PO (18:14)
[2019-07-08] MEDS ORDERED: ASCO250T23 PO (18:15)
== END 2019-07-07 18:10 | DRG 853 ==
LOC: ER 11:47 → TELE3 13:40 → MEDSURG3 06-30 11:12 → TELE3 07-01 07:00 → MEDSURG3 07-04 17:20 → TELE3 07-05 11:15 → MEDSURG3 07-07 14:15
PROVIDERS: ADMIT Hospitalist; ATTEND Hospitalist
PROC: 05HB33Z Insertion of Infusion Device into Right Basilic Vein, Percutaneous Approach (ICD-10-PCS; 2019-07-01)
PROC: 0D9P0ZZ Drainage of Rectum, Open Approach (ICD-10-PCS; principal; 2019-07-04)
DX: A41.9 Sepsis, unspecified organism (principal); I50.23 Acute on chronic systolic (congestive) heart failure; N17.0 Acute kidney failure with tubular necrosis; E43 Unspecified severe protein-calorie malnutrition; I50.33 Acute on chronic diastolic (congestive) heart failure; I21.A1 Myocardial infarction type 2; E44.0 Moderate protein-calorie malnutrition; L02.31 Cutaneous abscess of buttock; I13.0 Hypertensive heart and chronic kidney disease with heart failure and stage 1 through stage 4 chronic kidney disease, or unspecified chronic kidney disease; E87.1 Hypo-osmolality and hyponatremia; E87.2 Acidosis; J98.11 Atelectasis; I48.20 Chronic atrial fibrillation, unspecified; K92.1 Melena; M60.08 Infective myositis, other site; I11.0 Hypertensive heart disease with heart failure; Z95.0 Presence of cardiac pacemaker; R65.20 Severe sepsis without septic shock; M60.88 Other myositis, other site; N18.9 Chronic kidney disease, unspecified; E11.22 Type 2 diabetes mellitus with diabetic chronic kidney disease; K60.4 Rectal fistula; B96.1 Klebsiella pneumoniae [K. pneumoniae] as the cause of diseases classified elsewhere; E78.5 Hyperlipidemia, unspecified; E11.65 Type 2 diabetes mellitus with hyperglycemia; E03.9 Hypothyroidism, unspecified; E83.42 Hypomagnesemia; E87.6 Hypokalemia; E87.5 Hyperkalemia; E83.51 Hypocalcemia; I70.0 Atherosclerosis of aorta; Z79.01 Long term (current) use of anticoagulants; Z91.14 Patient's other noncompliance with medication regimen; Z90.49 Acquired absence of other specified parts of digestive tract; Z95.2 Presence of prosthetic heart valve; Z85.3 Personal history of malignant neoplasm of breast; Z95.1 Presence of aortocoronary bypass graft; I25.10 Atherosclerotic heart disease of native coronary artery without angina pectoris; E83.39 Other disorders of phosphorus metabolism; K21.9 Gastro-esophageal reflux disease without esophagitis; Z79.899 Other long term (current) drug therapy; Z79.4 Long term (current) use of insulin; D50.9 Iron deficiency anemia, unspecified
CPT/HCPCS: 36415; 36569; 70030-TC; 71045; 71250; 76770; 82378; 83605; 83735; 84100; 85025; 85730; 87040; 87070; 87075; 87077; 87086; 87400; 89055; 93005; 93307; A4649; A4663; C1758; G0378; J0690; J0696; J1100; J1815; J1940; J2270; J2405; J2543; J3010; J3370; J3475; J3490; J7030; J7040; J7050; J7060

== ENCOUNTER 2019-07-06 17:02 | Inpatient (IN) | payer MEDICARE, MEDICAID ==
[~2019-07-06] VITALS: Ht 162.6 cm; Wt 66.9 kg
[~2019-07-06 17:02] MED LIST changes: -DIGO125T PO; -HYDR-3326 PO; +INSU100C SQ; -INSU100I19 SQ; -INSU100I24 SQ; +INSU100V7 SQ; -LOSA25TA27 PO; -METO25TA6 PO; -ONDA4TAB10 PO; -TRAZ-182 PO; -VENL75TA4 PO
[2019-07-07] MEDS ORDERED: PIPE2.257 IV (15:08)
[2019-07-07] MEDS ORDERED: BUME1TAB8 PO (15:10)
[2019-07-07] MEDS ORDERED: NITROGLYCERIN 0.4 MG/TAB BOTTLE SL PRN (19:00)
[2019-07-07] MEDS ORDERED: DEXTROSE 50% 50 ML DISP.SYRIN IV PRN (19:00)
[2019-07-07] MEDS ORDERED: PIPERACILLIN/TAZO/D5W 2.25 GM FROZ.PIGGY IV SCH (19:00)
[2019-07-07 20:30] VITALS: BP 95/44
[2019-07-07] MEDS ORDERED: MIRTAZAPINE 45 MG PO SCH (21:00)
[2019-07-07] MEDS ORDERED: ARIPIPRAZOLE 2 MG TABLET PO SCH (21:00)
[2019-07-07] MEDS ORDERED: ATORVASTATIN 40 MG TABLET PO SCH (21:00)
[2019-07-07] MEDS: BLOOD SUGAR DIAGNOSTIC 1 EACH STRIP VI SCH (21:04)
[2019-07-07] MEDS ORDERED: ARIPIPRAZOLE 5 MG TABLET ONE (21:41)
[2019-07-07] MEDS ORDERED: INSULIN GLARGINE,HUM 300 UNITS/3 ML CARTRIDGE SQ ONE (21:41)
[2019-07-07] MEDS ORDERED: ATORVASTATIN 10 MG TABLET ONE (21:50)
[2019-07-07] MEDS: INSULIN GLARGINE,HUM 300 UNITS/3 ML CARTRIDGE SQ SCH (21:59)
[2019-07-08 06:03] VITALS: BP 115/61
[2019-07-08] MEDS: PIPERACILLIN/TAZO 2.25 G in IV DEXTROSE 5% 50 ML IV SCH ×3 (06:20→16:56)
[2019-07-08] MEDS: LEVOTHYROXINE SODIUM 200 MCG TABLET PO SCH (06:25)
[2019-07-08] MEDS: PANTOPRAZOLE SODIUM 40 MG TABLET.DR PO SCH (06:26)
[2019-07-08] MEDS: BLOOD SUGAR DIAGNOSTIC 1 EACH STRIP VI SCH ×4 (06:27→20:57)
[2019-07-08 07:54] VITALS: BP 127/62
[2019-07-08] MEDS: ASCORBIC ACID 250 MG TABLET PO SCH (08:57)
[2019-07-08] MEDS: BUMETANIDE 1 MG TABLET PO SCH (08:58)
[2019-07-08] MEDS: CYANOCOBALAMIN 1,000 MCG TABLET PO SCH (08:59)
[2019-07-08] MEDS: VITAMIN B COMPLEX 1 TABLET PO SCH (08:59)
[2019-07-08] MEDS ORDERED: VIT D3 PO SCH (09:00)
[2019-07-08] MEDS ORDERED: CALCIUM CARB PO SCH (09:00)
[2019-07-08] MEDS ORDERED: Medication Not On Formulary EA (Apixaban (Eliquis) 2.5 MG) PO SCH (09:00)
[2019-07-08] MEDS ORDERED: [UNRECOGNIZED DRUG - OTHER] PO SCH (09:00)
[2019-07-08] MEDS ORDERED: MINERALS PO SCH (09:00)
[2019-07-08] MEDS: CALCIUM CARB/VITAMIN D 500MG-200UNITS TABLET PO SCH (09:00)
[2019-07-08] MEDS: APIXABAN 5 MG TABLET PO SCH ×2 (09:10→20:43)
[2019-07-08] MEDS: POLYVINYL ALCOHOL OPHT DROPS 15 ML BOTTLE EACHEYE SCH (09:12)
[2019-07-08 15:38] VITALS: BP 121/62
[2019-07-08] MEDS ORDERED: ARIP5TAB10 PO (17:21)
[2019-07-08] MEDS ORDERED: ATOR10TA PO (18:14)
[2019-07-08] MEDS ORDERED: ASCO250T23 PO (18:15)
[2019-07-08 20:09] VITALS: BP 113/43
[2019-07-08] MEDS: ARIPIPRAZOLE 5 MG TABLET PO SCH (20:44)
[2019-07-08] MEDS: ATORVASTATIN 10 MG TABLET PO SCH (20:45)
[2019-07-08] MEDS: MIRTAZAPINE 15 MG TABLET PO SCH (20:45)
[2019-07-08] MEDS: ACIDOPHILUS/BULGARICUS CHEW TAB PO SCH (20:55)
[2019-07-08] MEDS: AMOXICILLIN-CLAVUL 500-125MG TABLET PO SCH (20:56)
[2019-07-08] MEDS: INSULIN REGULAR, HUMAN 300 UNITS/3 ML VIAL SQ PRN (21:00)
[2019-07-08] MEDS: INSULIN GLARGINE,HUM 300 UNITS/3 ML CARTRIDGE SQ SCH (21:01)
[2019-07-09 05:48] VITALS: BP 92/42
[2019-07-09] MEDS: PANTOPRAZOLE SODIUM 40 MG TABLET.DR PO SCH (06:30)
[2019-07-09] MEDS: LEVOTHYROXINE SODIUM 200 MCG TABLET PO SCH (06:30)
[2019-07-09] MEDS: BLOOD SUGAR DIAGNOSTIC 1 EACH STRIP VI SCH ×4 (06:31→21:30)
[2019-07-09 06:51] LABS: BASOPHILS # (AUTO) 0.1 K/uL (0.0-8.0); BASOPHILS % (AUTO) 0.8 % (0.0-2.0); EOSINOPHILS % (AUTO) 0.5 % (0.0-7.0); HEMATOCRIT 25.7 % (31.2-41.9); LYMPHOCYTES # (AUTO) 1.4 K/uL (20.0-40.0); LYMPHOCYTES % (AUTO) 18.5 % (20.5-51.5); MEAN CORPUSCULAR HEMOGLOBIN 32.3 uug (24.7-32.8); MEAN CORPUSCULAR HGB CONC 35 g/dL (32.3-35.6); MEAN CORPUSCULAR VOLUME 92.6 fL (75.5-95.3); MONOCYTES # (AUTO) 0.6 K/uL (2.0-10.0); NEUTROPHILS # (AUTO) 5.3 K/uL (1.8-8.9); NEUTROPHILS % (AUTO) 72.2 % (38.5-71.5); PLATELET COUNT (AUTO) 331 K/uL (179-408); RED BLOOD CELL COUNT(AUTO) 2.77 MIL/uL (3.63-4.92); WHITE BLOOD COUNT (AUTO) 7.3 K/uL (3.8-11.8)
[2019-07-09 06:57] LABS: ALANINE AMINOTRANSFERASE 7 U/L (14-59); ALKALINE PHOSPHATASE 92 U/L (50-136); ASPARTATE AMINOTRANSFERASE 17 U/L (15-37); BILIRUBIN,TOTAL 0.5 mg/dL (0.2-1.0); CARBON DIOXIDE 33 mmol/L (21-32); CHLORIDE 100 mmol/L (98-107); CREATININE 1.4 mg/dL (0.6-1.3); GLUCOSE 106 mg/dL (74-106); MAGNESIUM 1.8 mg/dL (1.8-2.4); PHOSPHOROUS 3.2 mg/dL (2.5-4.9); POTASSIUM 3.8 mmol/L (3.5-5.1); TOTAL PROTEIN, SERUM 5.9 g/dL (6.4-8.2); UREA NITROGEN, BLOOD 15 mg/dL (7-18)
[2019-07-09 07:30] VITALS: BP 131/55
[2019-07-09] MEDS: VITAMIN B COMPLEX 1 TABLET PO SCH (08:44)
[2019-07-09] MEDS: ACIDOPHILUS/BULGARICUS CHEW TAB PO SCH ×2 (08:45→21:39)
[2019-07-09] MEDS: ASCORBIC ACID 250 MG TABLET PO SCH (08:45)
[2019-07-09] MEDS: AMOXICILLIN-CLAVUL 500-125MG TABLET PO SCH (08:45)
[2019-07-09] MEDS: BUMETANIDE 1 MG TABLET PO SCH (08:45)
[2019-07-09] MEDS: CYANOCOBALAMIN 1,000 MCG TABLET PO SCH (08:47)
[2019-07-09] MEDS: POLYVINYL ALCOHOL OPHT DROPS 15 ML BOTTLE EACHEYE SCH (08:47)
[2019-07-09] MEDS: APIXABAN 5 MG TABLET PO SCH ×2 (08:48→21:39)
[2019-07-09] MEDS: CALCIUM CARB/VITAMIN D 500MG-200UNITS TABLET PO SCH (08:59)
[2019-07-09] MEDS: ACETAMINOPHEN 325 MG TABLET PO PRN (11:19)
[2019-07-09] MEDS: SODIUM HYPOCHLORITE 0.125% 473 ML BOTTLE TP SCH (11:19)
[2019-07-09] MEDS: INSULIN REGULAR, HUMAN 300 UNIT/3 ML VIAL SQ PRN (11:29)
[2019-07-09 16:00] VITALS: BP 97/47
[2019-07-09] MEDS: OXYCODONE HCL 5 MG TABLET PO PRN (16:19)
[2019-07-09] MEDS: INSULIN REGULAR, HUMAN 300 UNITS/3 ML VIAL SQ PRN (21:36)
[2019-07-09] MEDS: INSULIN GLARGINE,HUM 300 UNITS/3 ML CARTRIDGE SQ SCH (21:38)
[2019-07-09] MEDS: ATORVASTATIN 10 MG TABLET PO SCH (21:39)
[2019-07-09] MEDS: ARIPIPRAZOLE 5 MG TABLET PO SCH (21:39)
[2019-07-09] MEDS: MIRTAZAPINE 15 MG TABLET PO SCH (21:39)
[2019-07-09] MEDS: AMPICILLIN IV 1 G in IV NORMAL SALINE 50 ML IV SCH (21:43)
[2019-07-10 04:55] VITALS: BP 132/55
[2019-07-10] MEDS: AMPICILLIN IV 1 G in IV NORMAL SALINE 50 ML IV SCH ×3 (06:21→21:26)
[2019-07-10] MEDS: ACETAMINOPHEN 325 MG TABLET PO PRN (06:26)
[2019-07-10] MEDS: LEVOTHYROXINE SODIUM 200 MCG TABLET PO SCH (06:31)
[2019-07-10] MEDS: PANTOPRAZOLE SODIUM 40 MG TABLET.DR PO SCH (06:31)
[2019-07-10] MEDS: BLOOD SUGAR DIAGNOSTIC 1 EACH STRIP VI SCH ×4 (06:32→20:02)
[2019-07-10 08:04] VITALS: BP 84/32
[2019-07-10] MEDS: BUMETANIDE 1 MG TABLET PO SCH (08:54)
[2019-07-10] MEDS: VITAMIN B COMPLEX 1 TABLET PO SCH (08:54)
[2019-07-10] MEDS: ASCORBIC ACID 250 MG TABLET PO SCH (08:55)
[2019-07-10] MEDS: CALCIUM CARB/VITAMIN D 500MG-200UNITS TABLET PO SCH (08:55)
[2019-07-10] MEDS: ACIDOPHILUS/BULGARICUS CHEW TAB PO SCH ×2 (08:55→20:02)
[2019-07-10] MEDS: CYANOCOBALAMIN 1,000 MCG TABLET PO SCH (08:55)
[2019-07-10] MEDS: APIXABAN 5 MG TABLET PO SCH ×2 (09:03→20:07)
[2019-07-10] MEDS: SODIUM HYPOCHLORITE 0.125% 473 ML BOTTLE TP SCH (09:04)
[2019-07-10] MEDS: POLYVINYL ALCOHOL OPHT DROPS 15 ML BOTTLE EACHEYE SCH (09:04)
[2019-07-10 11:16] LABS: *BILIRUBIN,URIN NEGATIVE (NEGATIVE); *CLARITY,URINE CLEAR (CLEAR); *COLOR,URINE YELLOW (YELLOW); *KETONES,URINE NEGATIVE (NEGATIVE); *UROBILINOGEN,URINE 0.2 E.U./dl (NORMAL); LEUKOCYTE ESTERASE ,URINE NEGATIVE (NEGATIVE); NITRITE, URINE NEGATIVE (NEGATIVE); UGLUCOSE NEGATIVE (NEGATIVE)
[2019-07-10 11:23] LABS: *BLOOD, URINE NEGATIVE (NEGATIVE)
[2019-07-10] MEDS: INSULIN REGULAR, HUMAN 300 UNIT/3 ML VIAL SQ PRN (11:30)
[2019-07-10] MEDS: OXYCODONE HCL 5 MG TABLET PO PRN (13:31)
[2019-07-10 15:47] VITALS: BP 91/39
[2019-07-10] MEDS: ARIPIPRAZOLE 5 MG TABLET PO SCH (20:02)
[2019-07-10] MEDS: MIRTAZAPINE 15 MG TABLET PO SCH (20:02)
[2019-07-10] MEDS: ATORVASTATIN 10 MG TABLET PO SCH (20:02)
[2019-07-10] MEDS: INSULIN GLARGINE,HUM 300 UNITS/3 ML CARTRIDGE SQ SCH (20:07)
[2019-07-10] MEDS: INSULIN REGULAR, HUMAN 300 UNITS/3 ML VIAL SQ PRN (20:08)
[2019-07-10 20:42] VITALS: BP 105/55
[2019-07-11 05:42] VITALS: BP 124/62
[2019-07-11] MEDS: AMPICILLIN IV 1 G in IV NORMAL SALINE 50 ML IV SCH ×3 (06:19→21:48)
[2019-07-11] MEDS: LEVOTHYROXINE SODIUM 200 MCG TABLET PO SCH (06:30)
[2019-07-11] MEDS: PANTOPRAZOLE SODIUM 40 MG TABLET.DR PO SCH (06:30)
[2019-07-11] MEDS: BLOOD SUGAR DIAGNOSTIC 1 EACH STRIP VI SCH ×4 (06:32→20:34)
[2019-07-11 07:46] VITALS: BP 117/53
[2019-07-11] MEDS: ACIDOPHILUS/BULGARICUS CHEW TAB PO SCH ×2 (09:40→20:33)
[2019-07-11] MEDS: BUMETANIDE 1 MG TABLET PO SCH (09:40)
[2019-07-11] MEDS: VITAMIN B COMPLEX 1 TABLET PO SCH (09:41)
[2019-07-11] MEDS: CYANOCOBALAMIN 1,000 MCG TABLET PO SCH (09:41)
[2019-07-11] MEDS: CALCIUM CARB/VITAMIN D 500MG-200UNITS TABLET PO SCH (09:41)
[2019-07-11] MEDS: ASCORBIC ACID 250 MG TABLET PO SCH (09:41)
[2019-07-11] MEDS: APIXABAN 5 MG TABLET PO SCH ×2 (09:43→20:41)
[2019-07-11] MEDS: POLYVINYL ALCOHOL OPHT DROPS 15 ML BOTTLE EACHEYE SCH (09:45)
[2019-07-11] MEDS: SODIUM HYPOCHLORITE 0.125% 473 ML BOTTLE TP SCH (09:56)
[2019-07-11] MEDS: INSULIN REGULAR, HUMAN 300 UNIT/3 ML VIAL SQ PRN ×2 (11:52→16:54)
[2019-07-11 16:34] VITALS: BP 114/46
[2019-07-11] MEDS: MIRTAZAPINE 15 MG TABLET PO SCH (20:33)
[2019-07-11] MEDS: ATORVASTATIN 10 MG TABLET PO SCH (20:34)
[2019-07-11] MEDS: ARIPIPRAZOLE 5 MG TABLET PO SCH (20:34)
[2019-07-11] MEDS: INSULIN GLARGINE,HUM 300 UNITS/3 ML CARTRIDGE SQ SCH (20:35)
[2019-07-11] MEDS: INSULIN REGULAR, HUMAN 300 UNITS/3 ML VIAL SQ PRN (20:42)
[2019-07-11 20:45] VITALS: BP 99/56
[2019-07-11] MEDS: ACETAMINOPHEN 325 MG TABLET PO PRN (22:34)
[2019-07-11] MEDS: OXYCODONE HCL 5 MG TABLET PO PRN (23:23)
[2019-07-12 05:30] VITALS: BP 121/65
[2019-07-12] MEDS: AMPICILLIN IV 1 G in IV NORMAL SALINE 50 ML IV SCH ×3 (05:50→21:51)
[2019-07-12] MEDS: PANTOPRAZOLE SODIUM 40 MG TABLET.DR PO SCH (06:30)
[2019-07-12] MEDS: LEVOTHYROXINE SODIUM 200 MCG TABLET PO SCH (06:30)
[2019-07-12] MEDS: BLOOD SUGAR DIAGNOSTIC 1 EACH STRIP VI SCH ×4 (06:31→20:29)
[2019-07-12 07:52] VITALS: BP 115/56
[2019-07-12] MEDS: OXYCODONE HCL 5 MG TABLET PO PRN (07:58)
[2019-07-12] MEDS: CALCIUM CARB/VITAMIN D 500MG-200UNITS TABLET PO SCH (09:08)
[2019-07-12] MEDS: BUMETANIDE 1 MG TABLET PO SCH (09:08)
[2019-07-12] MEDS: VITAMIN B COMPLEX 1 TABLET PO SCH (09:08)
[2019-07-12] MEDS: ACIDOPHILUS/BULGARICUS CHEW TAB PO SCH ×2 (09:08→20:24)
[2019-07-12] MEDS: POLYVINYL ALCOHOL OPHT DROPS 15 ML BOTTLE EACHEYE SCH (09:09)
[2019-07-12] MEDS: ASCORBIC ACID 250 MG TABLET PO SCH (09:09)
[2019-07-12] MEDS: CYANOCOBALAMIN 1,000 MCG TABLET PO SCH (09:09)
[2019-07-12] MEDS: APIXABAN 5 MG TABLET PO SCH ×2 (09:10→20:27)
[2019-07-12] MEDS: SODIUM HYPOCHLORITE 0.125% 473 ML BOTTLE TP SCH (09:10)
[2019-07-12] MEDS: INSULIN REGULAR, HUMAN 300 UNIT/3 ML VIAL SQ PRN (11:43)
[2019-07-12 16:43] VITALS: BP 103/51
[2019-07-12 20:08] VITALS: BP 112/58
[2019-07-12] MEDS: MIRTAZAPINE 15 MG TABLET PO SCH (20:23)
[2019-07-12] MEDS: ATORVASTATIN 10 MG TABLET PO SCH (20:24)
[2019-07-12] MEDS: ARIPIPRAZOLE 5 MG TABLET PO SCH (20:24)
[2019-07-12] MEDS: INSULIN GLARGINE,HUM 300 UNITS/3 ML CARTRIDGE SQ SCH (20:29)
[2019-07-12] MEDS: INSULIN REGULAR, HUMAN 300 UNITS/3 ML VIAL SQ PRN (20:30)
[2019-07-12] MEDS: ACETAMINOPHEN 325 MG TABLET PO PRN (22:31)
[2019-07-13 05:32] VITALS: BP 134/60
[2019-07-13] MEDS: AMPICILLIN IV 1 G in IV NORMAL SALINE 50 ML IV SCH ×3 (06:03→21:50)
[2019-07-13] MEDS: LEVOTHYROXINE SODIUM 200 MCG TABLET PO SCH (06:32)
[2019-07-13] MEDS: PANTOPRAZOLE SODIUM 40 MG TABLET.DR PO SCH (06:32)
[2019-07-13] MEDS: BLOOD SUGAR DIAGNOSTIC 1 EACH STRIP VI SCH ×4 (06:33→20:20)
[2019-07-13 08:00] VITALS: BP 120/73
[2019-07-13] MEDS: BUMETANIDE 1 MG TABLET PO SCH (08:54)
[2019-07-13] MEDS: ASCORBIC ACID 250 MG TABLET PO SCH (08:54)
[2019-07-13] MEDS: VITAMIN B COMPLEX 1 TABLET PO SCH (08:54)
[2019-07-13] MEDS: CYANOCOBALAMIN 1,000 MCG TABLET PO SCH (08:54)
[2019-07-13] MEDS: CALCIUM CARB/VITAMIN D 500MG-200UNITS TABLET PO SCH (08:54)
[2019-07-13] MEDS: ACIDOPHILUS/BULGARICUS CHEW TAB PO SCH ×2 (08:54→20:15)
[2019-07-13] MEDS: OXYCODONE HCL 5 MG TABLET PO PRN (08:55)
[2019-07-13] MEDS: APIXABAN 5 MG TABLET PO SCH ×2 (09:01→20:18)
[2019-07-13] MEDS: POLYVINYL ALCOHOL OPHT DROPS 15 ML BOTTLE EACHEYE SCH (09:02)
[2019-07-13] MEDS: SODIUM HYPOCHLORITE 0.125% 473 ML BOTTLE TP SCH (09:02)
[2019-07-13] MEDS: INSULIN REGULAR, HUMAN 300 UNIT/3 ML VIAL SQ PRN (11:39)
[2019-07-13 16:45] VITALS: BP 112/64
[2019-07-13] MEDS: ATORVASTATIN 10 MG TABLET PO SCH (20:15)
[2019-07-13] MEDS: MIRTAZAPINE 15 MG TABLET PO SCH (20:15)
[2019-07-13] MEDS: ARIPIPRAZOLE 5 MG TABLET PO SCH (20:15)
[2019-07-13] MEDS: INSULIN REGULAR, HUMAN 300 UNITS/3 ML VIAL SQ PRN (20:18)
[2019-07-13] MEDS: INSULIN GLARGINE,HUM 300 UNITS/3 ML CARTRIDGE SQ SCH (20:19)
[2019-07-13 20:21] VITALS: BP 111/53
[2019-07-13] MEDS: ZOLPIDEM 5 MG TABLET PO PRN (22:16)
[2019-07-14 04:43] VITALS: BP 132/61
[2019-07-14] MEDS: AMPICILLIN IV 1 G in IV NORMAL SALINE 50 ML IV SCH ×3 (06:03→21:13)
[2019-07-14] MEDS: LEVOTHYROXINE SODIUM 200 MCG TABLET PO SCH (06:36)
[2019-07-14] MEDS: PANTOPRAZOLE SODIUM 40 MG TABLET.DR PO SCH (06:36)
[2019-07-14] MEDS: BLOOD SUGAR DIAGNOSTIC 1 EACH STRIP VI SCH ×4 (06:36→20:26)
[2019-07-14 08:00] VITALS: BP 127/70
[2019-07-14] MEDS: VITAMIN B COMPLEX 1 TABLET PO SCH (08:44)
[2019-07-14] MEDS: ACIDOPHILUS/BULGARICUS CHEW TAB PO SCH ×2 (08:45→20:10)
[2019-07-14] MEDS: CALCIUM CARB/VITAMIN D 500MG-200UNITS TABLET PO SCH (08:45)
[2019-07-14] MEDS: BUMETANIDE 1 MG TABLET PO SCH (08:45)
[2019-07-14] MEDS: ASCORBIC ACID 250 MG TABLET PO SCH (08:45)
[2019-07-14] MEDS: OXYCODONE HCL 5 MG TABLET PO PRN (08:45)
[2019-07-14] MEDS: CYANOCOBALAMIN 1,000 MCG TABLET PO SCH (08:45)
[2019-07-14] MEDS: APIXABAN 5 MG TABLET PO SCH ×2 (08:49→20:11)
[2019-07-14] MEDS: POLYVINYL ALCOHOL OPHT DROPS 15 ML BOTTLE EACHEYE SCH (08:51)
[2019-07-14] MEDS: SODIUM HYPOCHLORITE 0.125% 473 ML BOTTLE TP SCH (08:52)
[2019-07-14] MEDS: MICAFUNGIN SODIUM 100 MG in IV NORMAL SALINE 100 ML IV SCH (11:46)
[2019-07-14] MEDS: INSULIN REGULAR, HUMAN 300 UNIT/3 ML VIAL SQ PRN (11:58)
[2019-07-14 17:26] VITALS: BP 107/58
[2019-07-14] MEDS: MIRTAZAPINE 15 MG TABLET PO SCH (20:09)
[2019-07-14] MEDS: ARIPIPRAZOLE 5 MG TABLET PO SCH (20:10)
[2019-07-14] MEDS: ATORVASTATIN 10 MG TABLET PO SCH (20:10)
[2019-07-14] MEDS: INSULIN GLARGINE,HUM 300 UNITS/3 ML CARTRIDGE SQ SCH (20:23)
[2019-07-14] MEDS: INSULIN REGULAR, HUMAN 300 UNITS/3 ML VIAL SQ PRN (20:24)
[2019-07-14 21:32] VITALS: BP 106/59
[2019-07-14] MEDS: ZOLPIDEM 5 MG TABLET PO PRN (21:54)
[2019-07-15] MEDS: AMPICILLIN IV 1 G in IV NORMAL SALINE 50 ML IV SCH ×3 (05:13→21:50)
[2019-07-15 05:17] VITALS: BP 129/72
[2019-07-15] MEDS: BLOOD SUGAR DIAGNOSTIC 1 EACH STRIP VI SCH ×4 (06:32→20:39)
[2019-07-15] MEDS: LEVOTHYROXINE SODIUM 200 MCG TABLET PO SCH (06:32)
[2019-07-15] MEDS: PANTOPRAZOLE SODIUM 40 MG TABLET.DR PO SCH (06:32)
[2019-07-15 07:30] VITALS: BP 109/46
[2019-07-15 07:40] LABS: BASOPHILS % (AUTO) 0.7 % (0.0-2.0); EOSINOPHILS # (AUTO) 0.1 K/uL (0.0-0.7); EOSINOPHILS % (AUTO) 2.1 % (0.0-7.0); HEMATOCRIT 24.1 % (31.2-41.9); HEMOGLOBIN 8.3 g/dL (10.9-14.3); LYMPHOCYTES # (AUTO) 1.1 K/uL (20.0-40.0); LYMPHOCYTES % (AUTO) 28.6 % (20.5-51.5); MEAN CORPUSCULAR HEMOGLOBIN 32.2 uug (24.7-32.8); MEAN CORPUSCULAR HGB CONC 34 g/dL (32.3-35.6); MEAN CORPUSCULAR VOLUME 94.1 fL (75.5-95.3); MONOCYTES # (AUTO) 0.5 K/uL (2.0-10.0); MONOCYTES % (AUTO) 12.9 % (0.0-11.0); NEUTROPHILS # (AUTO) 2.1 K/uL (1.8-8.9); NEUTROPHILS % (AUTO) 55.7 % (38.5-71.5); RED BLOOD CELL COUNT(AUTO) 2.56 MIL/uL (3.63-4.92)
[2019-07-15 07:45] LABS: ALANINE AMINOTRANSFERASE < 6 U/L (14-59); ALKALINE PHOSPHATASE 88 U/L (50-136); ASPARTATE AMINOTRANSFERASE 13 U/L (15-37); BILIRUBIN,TOTAL 0.4 mg/dL (0.2-1.0); CARBON DIOXIDE 33 mmol/L (21-32); CHLORIDE 103 mmol/L (98-107); CREATININE 1.3 mg/dL (0.6-1.3); GLUCOSE 113 mg/dL (74-106); PHOSPHOROUS 3.7 mg/dL (2.5-4.9); POTASSIUM 4.5 mmol/L (3.5-5.1); UREA NITROGEN, BLOOD 13 mg/dL (7-18)
[2019-07-15 07:54] LABS: PLATELET COUNT (AUTO) 210 K/uL (179-408); WHITE BLOOD COUNT (AUTO) 3.9 K/uL (3.8-11.8)
[2019-07-15] MEDS: CALCIUM CARB/VITAMIN D 500MG-200UNITS TABLET PO SCH (08:47)
[2019-07-15] MEDS: ASCORBIC ACID 250 MG TABLET PO SCH (08:47)
[2019-07-15] MEDS: ACIDOPHILUS/BULGARICUS CHEW TAB PO SCH ×2 (08:47→20:34)
[2019-07-15] MEDS: CYANOCOBALAMIN 1,000 MCG TABLET PO SCH (08:47)
[2019-07-15] MEDS: BUMETANIDE 1 MG TABLET PO SCH (08:47)
[2019-07-15] MEDS: VITAMIN B COMPLEX 1 TABLET PO SCH (08:48)
[2019-07-15] MEDS: APIXABAN 5 MG TABLET PO SCH ×2 (09:00→20:37)
[2019-07-15] MEDS: OXYCODONE HCL 5 MG TABLET PO PRN (09:04)
[2019-07-15] MEDS: POLYVINYL ALCOHOL OPHT DROPS 15 ML BOTTLE EACHEYE SCH (09:05)
[2019-07-15] MEDS: SODIUM HYPOCHLORITE 0.125% 473 ML BOTTLE TP SCH (09:06)
[2019-07-15] MEDS: INSULIN REGULAR, HUMAN 300 UNIT/3 ML VIAL SQ PRN (12:26)
[2019-07-15] MEDS: MICAFUNGIN SODIUM 100 MG in IV NORMAL SALINE 100 ML IV SCH (14:00)
[2019-07-15 16:00] VITALS: BP 106/51
[2019-07-15 20:12] VITALS: BP 97/38
[2019-07-15] MEDS: MIRTAZAPINE 15 MG TABLET PO SCH (20:33)
[2019-07-15] MEDS: ATORVASTATIN 10 MG TABLET PO SCH (20:34)
[2019-07-15] MEDS: ARIPIPRAZOLE 5 MG TABLET PO SCH (20:34)
[2019-07-15] MEDS: INSULIN GLARGINE,HUM 300 UNITS/3 ML CARTRIDGE SQ SCH (20:36)
[2019-07-15] MEDS: INSULIN REGULAR, HUMAN 300 UNITS/3 ML VIAL SQ PRN (20:38)
[2019-07-15] MEDS: ZOLPIDEM 5 MG TABLET PO PRN (22:29)
[2019-07-16 05:33] VITALS: BP 100/41
[2019-07-16] MEDS: AMPICILLIN IV 1 G in IV NORMAL SALINE 50 ML IV SCH ×3 (05:50→21:33)
[2019-07-16] MEDS: LEVOTHYROXINE SODIUM 200 MCG TABLET PO SCH (06:34)
[2019-07-16] MEDS: PANTOPRAZOLE SODIUM 40 MG TABLET.DR PO SCH (06:34)
[2019-07-16] MEDS: BLOOD SUGAR DIAGNOSTIC 1 EACH STRIP VI SCH ×4 (06:34→17:01)
[2019-07-16] MEDS: PROTEIN SUPPLEMENT (PROSTAT) 30 ML LIQUID PO SCH ×3 (08:00→17:00)
[2019-07-16] MEDS: VITAMIN B COMPLEX 1 TABLET PO SCH (08:51)
[2019-07-16] MEDS: CYANOCOBALAMIN 1,000 MCG TABLET PO SCH (08:53)
[2019-07-16] MEDS: ASCORBIC ACID 250 MG TABLET PO SCH (08:53)
[2019-07-16] MEDS: CALCIUM CARB/VITAMIN D 500MG-200UNITS TABLET PO SCH (08:53)
[2019-07-16] MEDS: BUMETANIDE 1 MG TABLET PO SCH (08:53)
[2019-07-16] MEDS: ACIDOPHILUS/BULGARICUS CHEW TAB PO SCH ×2 (08:53→20:46)
[2019-07-16] MEDS: APIXABAN 5 MG TABLET PO SCH ×2 (08:57→20:49)
[2019-07-16] MEDS: POLYVINYL ALCOHOL OPHT DROPS 15 ML BOTTLE EACHEYE SCH (08:58)
[2019-07-16] MEDS: SODIUM HYPOCHLORITE 0.125% 473 ML BOTTLE TP SCH (08:59)
[2019-07-16 09:03] VITALS: BP 105/51
[2019-07-16] MEDS: MICAFUNGIN SODIUM 100 MG in IV NORMAL SALINE 100 ML IV SCH (11:18)
[2019-07-16] MEDS: INSULIN REGULAR, HUMAN 300 UNIT/3 ML VIAL SQ PRN (11:21)
[2019-07-16] MEDS: OXYCODONE HCL 5 MG TABLET PO PRN (12:56)
[2019-07-16] MEDS: ACETAMINOPHEN 325 MG TABLET PO PRN ×2 (15:07→21:00)
[2019-07-16 16:18] VITALS: BP 93/37
[2019-07-16 19:56] VITALS: BP 98/47
[2019-07-16] MEDS: ARIPIPRAZOLE 5 MG TABLET PO SCH (20:46)
[2019-07-16] MEDS: MIRTAZAPINE 15 MG TABLET PO SCH (20:46)
[2019-07-16] MEDS: ATORVASTATIN 10 MG TABLET PO SCH (20:46)
[2019-07-16] MEDS: INSULIN REGULAR, HUMAN 300 UNITS/3 ML VIAL SQ PRN (20:56)
[2019-07-16] MEDS: INSULIN GLARGINE,HUM 300 UNITS/3 ML CARTRIDGE SQ SCH (20:58)
[2019-07-16] MEDS: ZOLPIDEM 5 MG TABLET PO PRN (21:05)
[2019-07-17] MEDS: AMPICILLIN IV 1 G in IV NORMAL SALINE 50 ML IV SCH ×3 (05:40→21:37)
[2019-07-17 05:45] VITALS: BP 100/57
[2019-07-17] MEDS: LEVOTHYROXINE SODIUM 200 MCG TABLET PO SCH (06:27)
[2019-07-17] MEDS: PANTOPRAZOLE SODIUM 40 MG TABLET.DR PO SCH (06:27)
[2019-07-17] MEDS: BLOOD SUGAR DIAGNOSTIC 1 EACH STRIP VI SCH ×4 (06:35→20:36)
[2019-07-17 07:13] LABS: BASOPHILS % (AUTO) 0.7 % (0.0-2.0); EOSINOPHILS # (AUTO) 0.1 K/uL (0.0-0.7); EOSINOPHILS % (AUTO) 2.5 % (0.0-7.0); HEMATOCRIT 24.3 % (31.2-41.9); HEMOGLOBIN 8.4 g/dL (10.9-14.3); LYMPHOCYTES # (AUTO) 1.4 K/uL (20.0-40.0); LYMPHOCYTES % (AUTO) 33.4 % (20.5-51.5); MEAN CORPUSCULAR HEMOGLOBIN 33.1 uug (24.7-32.8); MEAN CORPUSCULAR HGB CONC 35 g/dL (32.3-35.6); MEAN CORPUSCULAR VOLUME 95.6 fL (75.5-95.3); MONOCYTES # (AUTO) 0.5 K/uL (2.0-10.0); MONOCYTES % (AUTO) 11.5 % (0.0-11.0); NEUTROPHILS # (AUTO) 2.2 K/uL (1.8-8.9); NEUTROPHILS % (AUTO) 51.9 % (38.5-71.5); PLATELET COUNT (AUTO) 208 K/uL (179-408); RED BLOOD CELL COUNT(AUTO) 2.54 MIL/uL (3.63-4.92); WHITE BLOOD COUNT (AUTO) 4.2 K/uL (3.8-11.8)
[2019-07-17 07:25] LABS: CARBON DIOXIDE 34 mmol/L (21-32); CHLORIDE 105 mmol/L (98-107); CREATININE 1.6 mg/dL (0.6-1.3); GLUCOSE 59 mg/dL (74-106); POTASSIUM 4.4 mmol/L (3.5-5.1); UREA NITROGEN, BLOOD 15 mg/dL (7-18)
[2019-07-17] MEDS: PROTEIN SUPPLEMENT (PROSTAT) 30 ML LIQUID PO SCH ×2 (08:00→11:47)
[2019-07-17] MEDS: ACIDOPHILUS/BULGARICUS CHEW TAB PO SCH ×2 (08:06→20:29)
[2019-07-17] MEDS: CYANOCOBALAMIN 1,000 MCG TABLET PO SCH (08:06)
[2019-07-17] MEDS: VITAMIN B COMPLEX 1 TABLET PO SCH (08:07)
[2019-07-17] MEDS: CALCIUM CARB/VITAMIN D 500MG-200UNITS TABLET PO SCH (08:07)
[2019-07-17] MEDS: POLYVINYL ALCOHOL OPHT DROPS 15 ML BOTTLE EACHEYE SCH (08:07)
[2019-07-17] MEDS: BUMETANIDE 1 MG TABLET PO SCH (08:07)
[2019-07-17] MEDS: SODIUM HYPOCHLORITE 0.125% 473 ML BOTTLE TP SCH (08:08)
[2019-07-17] MEDS: ASCORBIC ACID 250 MG TABLET PO SCH (08:08)
[2019-07-17] MEDS: APIXABAN 5 MG TABLET PO SCH ×2 (08:13→20:30)
[2019-07-17] MEDS: OXYCODONE HCL 5 MG TABLET PO PRN (09:57)
[2019-07-17 10:23] VITALS: BP 131/76
[2019-07-17] MEDS: MICAFUNGIN SODIUM 100 MG in IV NORMAL SALINE 100 ML IV SCH (11:41)
[2019-07-17] MEDS: INSULIN REGULAR, HUMAN 300 UNIT/3 ML VIAL SQ PRN (11:44)
[2019-07-17 18:23] VITALS: BP 112/69
[2019-07-17 19:25] VITALS: BP 116/52
[2019-07-17] MEDS: ATORVASTATIN 10 MG TABLET PO SCH (20:29)
[2019-07-17] MEDS: ARIPIPRAZOLE 5 MG TABLET PO SCH (20:29)
[2019-07-17] MEDS: MIRTAZAPINE 15 MG TABLET PO SCH (20:29)
[2019-07-17] MEDS: INSULIN GLARGINE,HUM 300 UNITS/3 ML CARTRIDGE SQ SCH (20:38)
[2019-07-17] MEDS: INSULIN REGULAR, HUMAN 300 UNITS/3 ML VIAL SQ PRN (20:40)
[2019-07-18] MEDS: AMPICILLIN IV 1 G in IV NORMAL SALINE 50 ML IV SCH ×3 (05:27→21:34)
[2019-07-18] MEDS: PANTOPRAZOLE SODIUM 40 MG TABLET.DR PO SCH (06:54)
[2019-07-18] MEDS: LEVOTHYROXINE SODIUM 200 MCG TABLET PO SCH (06:55)
[2019-07-18] MEDS: BLOOD SUGAR DIAGNOSTIC 1 EACH STRIP VI SCH ×4 (06:57→20:56)
[2019-07-18 07:35] VITALS: BP 109/61
[2019-07-18 08:00] VITALS: BP 128/62
[2019-07-18] MEDS: ACIDOPHILUS/BULGARICUS CHEW TAB PO SCH ×2 (08:22→20:49)
[2019-07-18] MEDS: CYANOCOBALAMIN 1,000 MCG TABLET PO SCH (08:22)
[2019-07-18] MEDS: POLYVINYL ALCOHOL OPHT DROPS 15 ML BOTTLE EACHEYE SCH (08:23)
[2019-07-18] MEDS: BUMETANIDE 1 MG TABLET PO SCH (08:24)
[2019-07-18] MEDS: CALCIUM CARB/VITAMIN D 500MG-200UNITS TABLET PO SCH (08:25)
[2019-07-18] MEDS: VITAMIN B COMPLEX 1 TABLET PO SCH (08:25)
[2019-07-18] MEDS: APIXABAN 5 MG TABLET PO SCH ×2 (08:26→20:53)
[2019-07-18] MEDS: ASCORBIC ACID 250 MG TABLET PO SCH (08:27)
[2019-07-18] MEDS: SODIUM HYPOCHLORITE 0.125% 473 ML BOTTLE TP SCH (08:31)
[2019-07-18] MEDS: MICAFUNGIN SODIUM 100 MG in IV NORMAL SALINE 100 ML IV SCH (11:50)
[2019-07-18] MEDS: INSULIN REGULAR, HUMAN 300 UNIT/3 ML VIAL SQ PRN (12:52)
[2019-07-18 18:00] VITALS: BP 122/64
[2019-07-18 20:28] VITALS: BP 122/67
[2019-07-18] MEDS: MIRTAZAPINE 15 MG TABLET PO SCH (20:50)
[2019-07-18] MEDS: ARIPIPRAZOLE 5 MG TABLET PO SCH (20:50)
[2019-07-18] MEDS: ATORVASTATIN 10 MG TABLET PO SCH (20:50)
[2019-07-18] MEDS: INSULIN GLARGINE,HUM 300 UNITS/3 ML CARTRIDGE SQ SCH (21:00)
[2019-07-18] MEDS: INSULIN REGULAR, HUMAN 300 UNITS/3 ML VIAL SQ PRN (21:02)
[2019-07-19] MEDS: AMPICILLIN IV 1 G in IV NORMAL SALINE 50 ML IV SCH ×3 (05:28→21:55)
[2019-07-19 06:07] VITALS: BP 123/53
[2019-07-19] MEDS: PANTOPRAZOLE SODIUM 40 MG TABLET.DR PO SCH (06:22)
[2019-07-19] MEDS: LEVOTHYROXINE SODIUM 200 MCG TABLET PO SCH (06:23)
[2019-07-19] MEDS: BLOOD SUGAR DIAGNOSTIC 1 EACH STRIP VI SCH ×4 (06:52→21:13)
[2019-07-19] MEDS: VITAMIN B COMPLEX 1 TABLET PO SCH (08:15)
[2019-07-19] MEDS: ACIDOPHILUS/BULGARICUS CHEW TAB PO SCH ×2 (08:15→21:11)
[2019-07-19] MEDS: BUMETANIDE 1 MG TABLET PO SCH (08:15)
[2019-07-19] MEDS: ASCORBIC ACID 250 MG TABLET PO SCH (08:15)
[2019-07-19] MEDS: CALCIUM CARB/VITAMIN D 500MG-200UNITS TABLET PO SCH (08:16)
[2019-07-19] MEDS: CYANOCOBALAMIN 1,000 MCG TABLET PO SCH (08:16)
[2019-07-19] MEDS: POLYVINYL ALCOHOL OPHT DROPS 15 ML BOTTLE EACHEYE SCH (08:16)
[2019-07-19] MEDS: SODIUM HYPOCHLORITE 0.125% 473 ML BOTTLE TP SCH (08:17)
[2019-07-19] MEDS: APIXABAN 5 MG TABLET PO SCH ×2 (08:18→21:12)
[2019-07-19] MEDS: MICAFUNGIN SODIUM 100 MG in IV NORMAL SALINE 100 ML IV SCH (11:16)
[2019-07-19] MEDS: INSULIN REGULAR, HUMAN 300 UNIT/3 ML VIAL SQ PRN ×2 (12:10→21:15)
[2019-07-19 16:30] VITALS: BP 135/71
[2019-07-19] MEDS ORDERED: DEXTROSE 50% 50 ML DISP.SYRIN IV PRN (17:15)
[2019-07-19] MEDS ORDERED: BLOOD SUGAR DIAGNOSTIC 1 EACH STRIP VI SCH (21:00)
[2019-07-19] MEDS: MIRTAZAPINE 15 MG TABLET PO SCH (21:11)
[2019-07-19] MEDS: ATORVASTATIN 10 MG TABLET PO SCH (21:11)
[2019-07-19] MEDS: ARIPIPRAZOLE 5 MG TABLET PO SCH (21:11)
[2019-07-19] MEDS: INSULIN GLARGINE,HUM 300 UNITS/3 ML CARTRIDGE SQ SCH (21:14)
[2019-07-19] MEDS: ZOLPIDEM 5 MG TABLET PO PRN (21:56)
[2019-07-19 22:39] VITALS: BP 131/45
[2019-07-20 04:00] VITALS: BP 108/47
[2019-07-20] MEDS: AMPICILLIN IV 1 G in IV NORMAL SALINE 50 ML IV SCH ×3 (05:56→21:51)
[2019-07-20] MEDS: BLOOD SUGAR DIAGNOSTIC 1 EACH STRIP VI SCH ×4 (06:37→20:30)
[2019-07-20] MEDS: LEVOTHYROXINE SODIUM 200 MCG TABLET PO SCH (06:38)
[2019-07-20] MEDS: PANTOPRAZOLE SODIUM 40 MG TABLET.DR PO SCH (06:38)
[2019-07-20 07:03] LABS: EOSINOPHILS # (AUTO) 0.2 K/uL (0.0-0.7); HEMATOCRIT 28.5 % (31.2-41.9); HEMOGLOBIN 9.6 g/dL (10.9-14.3); LYMPHOCYTES # (AUTO) 0.9 K/uL (20.0-40.0); MEAN CORPUSCULAR HGB CONC 34 g/dL (32.3-35.6); MEAN CORPUSCULAR VOLUME 95.4 fL (75.5-95.3); MONOCYTES # (AUTO) 0.5 K/uL (2.0-10.0); MONOCYTES % (AUTO) 13.5 % (0.0-11.0); NEUTROPHILS % (AUTO) 55.5 % (38.5-71.5); PLATELET COUNT (AUTO) 226 K/uL (179-408); RED BLOOD CELL COUNT(AUTO) 2.99 MIL/uL (3.63-4.92); WHITE BLOOD COUNT (AUTO) 3.6 K/uL (3.8-11.8)
[2019-07-20 07:30] VITALS: BP 114/54
[2019-07-20 07:31] LABS: CARBON DIOXIDE 31 mmol/L (21-32); CHLORIDE 103 mmol/L (98-107); CREATININE 1.4 mg/dL (0.6-1.3); GLUCOSE 92 mg/dL (74-106); MAGNESIUM 1.9 mg/dL (1.8-2.4); PHOSPHOROUS 4.2 mg/dL (2.5-4.9); POTASSIUM 4.7 mmol/L (3.5-5.1); UREA NITROGEN, BLOOD 11 mg/dL (7-18)
[2019-07-20] MEDS: ACIDOPHILUS/BULGARICUS CHEW TAB PO SCH ×2 (08:42→20:26)
[2019-07-20] MEDS: CYANOCOBALAMIN 1,000 MCG TABLET PO SCH (08:42)
[2019-07-20] MEDS: OXYCODONE HCL 5 MG TABLET PO PRN (08:42)
[2019-07-20] MEDS: VITAMIN B COMPLEX 1 TABLET PO SCH (08:42)
[2019-07-20] MEDS: CALCIUM CARB/VITAMIN D 500MG-200UNITS TABLET PO SCH (08:42)
[2019-07-20] MEDS: ASCORBIC ACID 250 MG TABLET PO SCH (08:43)
[2019-07-20] MEDS: BUMETANIDE 1 MG TABLET PO SCH (08:43)
[2019-07-20] MEDS: APIXABAN 5 MG TABLET PO SCH ×2 (08:51→20:29)
[2019-07-20] MEDS: SODIUM HYPOCHLORITE 0.125% 473 ML BOTTLE TP SCH (08:51)
[2019-07-20] MEDS: POLYVINYL ALCOHOL OPHT DROPS 15 ML BOTTLE EACHEYE SCH (08:51)
[2019-07-20] MEDS: INSULIN REGULAR, HUMAN 300 UNIT/3 ML VIAL SQ PRN ×2 (12:16→17:32)
[2019-07-20 16:26] VITALS: BP 105/64
[2019-07-20] MEDS: MIRTAZAPINE 15 MG TABLET PO SCH (20:26)
[2019-07-20] MEDS: ATORVASTATIN 10 MG TABLET PO SCH (20:26)
[2019-07-20 20:30] VITALS: BP 111/63
[2019-07-20] MEDS: ARIPIPRAZOLE 5 MG TABLET PO SCH (20:30)
[2019-07-20] MEDS: INSULIN GLARGINE,HUM 300 UNITS/3 ML CARTRIDGE SQ SCH (20:30)
[2019-07-20] MEDS: ZOLPIDEM 5 MG TABLET PO PRN (21:51)
[2019-07-21 05:33] VITALS: BP 131/53
[2019-07-21] MEDS: AMPICILLIN IV 1 G in IV NORMAL SALINE 50 ML IV SCH ×3 (05:59→21:31)
[2019-07-21] MEDS: PANTOPRAZOLE SODIUM 40 MG TABLET.DR PO SCH (06:30)
[2019-07-21] MEDS: LEVOTHYROXINE SODIUM 200 MCG TABLET PO SCH (06:30)
[2019-07-21] MEDS: BLOOD SUGAR DIAGNOSTIC 1 EACH STRIP VI SCH ×4 (06:31→20:54)
[2019-07-21 07:30] VITALS: BP 117/46
[2019-07-21] MEDS: APIXABAN 5 MG TABLET PO SCH ×2 (08:22→20:52)
[2019-07-21] MEDS: ACIDOPHILUS/BULGARICUS CHEW TAB PO SCH ×2 (08:38→20:50)
[2019-07-21] MEDS: OXYCODONE HCL 5 MG TABLET PO PRN (08:38)
[2019-07-21] MEDS: BUMETANIDE 1 MG TABLET PO SCH (08:38)
[2019-07-21] MEDS: ASCORBIC ACID 250 MG TABLET PO SCH (08:38)
[2019-07-21] MEDS: CALCIUM CARB/VITAMIN D 500MG-200UNITS TABLET PO SCH (08:38)
[2019-07-21] MEDS: VITAMIN B COMPLEX 1 TABLET PO SCH (08:38)
[2019-07-21] MEDS: CYANOCOBALAMIN 1,000 MCG TABLET PO SCH (08:38)
[2019-07-21] MEDS: POLYVINYL ALCOHOL OPHT DROPS 15 ML BOTTLE EACHEYE SCH (08:42)
[2019-07-21] MEDS: SODIUM HYPOCHLORITE 0.125% 473 ML BOTTLE TP SCH (08:42)
[2019-07-21] MEDS: INSULIN REGULAR, HUMAN 300 UNIT/3 ML VIAL SQ PRN ×2 (12:05→20:56)
[2019-07-21 16:00] VITALS: BP 116/54
[2019-07-21] MEDS: ARIPIPRAZOLE 5 MG TABLET PO SCH (20:50)
[2019-07-21] MEDS: ATORVASTATIN 10 MG TABLET PO SCH (20:50)
[2019-07-21] MEDS: MIRTAZAPINE 15 MG TABLET PO SCH (20:50)
[2019-07-21] MEDS: INSULIN GLARGINE,HUM 300 UNITS/3 ML CARTRIDGE SQ SCH (20:57)
[2019-07-21 23:05] VITALS: BP 114/51
[2019-07-22 04:00] VITALS: BP 124/58
[2019-07-22] MEDS: AMPICILLIN IV 1 G in IV NORMAL SALINE 50 ML IV SCH ×2 (05:23→13:23)
[2019-07-22] MEDS: LEVOTHYROXINE SODIUM 200 MCG TABLET PO SCH (06:18)
[2019-07-22] MEDS: PANTOPRAZOLE SODIUM 40 MG TABLET.DR PO SCH (06:19)
[2019-07-22] MEDS: BLOOD SUGAR DIAGNOSTIC 1 EACH STRIP VI SCH ×2 (06:25→12:28)
[2019-07-22 07:51] VITALS: BP 110/58
[2019-07-22] MEDS: CALCIUM CARB/VITAMIN D 500MG-200UNITS TABLET PO SCH (08:38)
[2019-07-22] MEDS: ASCORBIC ACID 250 MG TABLET PO SCH (08:38)
[2019-07-22] MEDS: CYANOCOBALAMIN 1,000 MCG TABLET PO SCH (08:38)
[2019-07-22] MEDS: VITAMIN B COMPLEX 1 TABLET PO SCH (08:38)
[2019-07-22] MEDS: BUMETANIDE 1 MG TABLET PO SCH (08:38)
[2019-07-22] MEDS: APIXABAN 5 MG TABLET PO SCH (08:39)
[2019-07-22] MEDS: POLYVINYL ALCOHOL OPHT DROPS 15 ML BOTTLE EACHEYE SCH (08:44)
[2019-07-22] MEDS: ACIDOPHILUS/BULGARICUS CHEW TAB PO SCH (08:45)
[2019-07-22] MEDS: SODIUM HYPOCHLORITE 0.125% 473 ML BOTTLE TP SCH (08:45)
[2019-07-22] MEDS: INSULIN REGULAR, HUMAN 300 UNIT/3 ML VIAL SQ PRN (12:30)
[2019-07-22 15:30] VITALS: BP 129/51
== END 2019-07-22 16:30 | DRG 280 ==
PROVIDERS: ADMIT Physical Medicine & Rehabilitation Pain Medicine; ATTEND Physical Medicine & Rehabilitation Pain Medicine
DX: I13.0 Hypertensive heart and chronic kidney disease with heart failure and stage 1 through stage 4 chronic kidney disease, or unspecified chronic kidney disease (principal); I21.4 Non-ST elevation (NSTEMI) myocardial infarction; I50.33 Acute on chronic diastolic (congestive) heart failure; N17.0 Acute kidney failure with tubular necrosis; E43 Unspecified severe protein-calorie malnutrition; K63.2 Fistula of intestine; L02.31 Cutaneous abscess of buttock; N39.0 Urinary tract infection, site not specified; N18.9 Chronic kidney disease, unspecified; D63.8 Anemia in other chronic diseases classified elsewhere; E03.9 Hypothyroidism, unspecified; E11.22 Type 2 diabetes mellitus with diabetic chronic kidney disease; E11.65 Type 2 diabetes mellitus with hyperglycemia; E78.5 Hyperlipidemia, unspecified; E83.51 Hypocalcemia; I25.10 Atherosclerotic heart disease of native coronary artery without angina pectoris; Z95.1 Presence of aortocoronary bypass graft; I70.0 Atherosclerosis of aorta; K21.9 Gastro-esophageal reflux disease without esophagitis; M60.9 Myositis, unspecified; Z85.3 Personal history of malignant neoplasm of breast; T50.2X5D Adverse effect of carbonic-anhydrase inhibitors, benzothiadiazides and other diuretics, subsequent encounter; Z90.49 Acquired absence of other specified parts of digestive tract; Z91.19 Patient's noncompliance with other medical treatment and regimen; Z95.0 Presence of cardiac pacemaker; Z95.2 Presence of prosthetic heart valve; Z88.2 Allergy status to sulfonamides; Z88.8 Allergy status to other drugs, medicaments and biological substances; R19.5 Other fecal abnormalities
CPT/HCPCS: 36415; 83735; 84100; 85025; 87086; A4663; J0290; J1815; J2248; J2543; J3490; J7040; J7050; J7060

== ENCOUNTER 2019-11-28 16:56 | Inpatient (IN) | payer MEDICARE, OTHER ==
[~2019-11-28] VITALS: Ht 162.6 cm; Wt 69.4 kg
[2019-11-28] MEDS ORDERED: IV NORMAL SALINE 1000 ML BAG IV ONE (17:30)
[2019-11-28 17:42] LABS: *BILIRUBIN,URIN NEGATIVE (NEGATIVE); *BLOOD, URINE 1+ (NEGATIVE); *COLOR,URINE YELLOW (YELLOW); *KETONES,URINE NEGATIVE (NEGATIVE); *UROBILINOGEN,URINE 0.2 E.U./dl (NORMAL); LEUKOCYTE ESTERASE ,URINE NEGATIVE (NEGATIVE); NITRITE, URINE NEGATIVE (NEGATIVE); PH,URINE 5.5 (5.0-8.0); UGLUCOSE 2+ (NEGATIVE)
[2019-11-28 17:44] LABS: BASOPHILS % (AUTO) 0.3 % (0.0-2.0); EOSINOPHILS % (AUTO) 0.5 % (0.0-7.0); HEMATOCRIT 27.5 % (31.2-41.9); HEMOGLOBIN 9.3 g/dL (10.9-14.3); LYMPHOCYTES # (AUTO) 0.5 K/uL (20.0-40.0); LYMPHOCYTES % (AUTO) 11.4 % (20.5-51.5); MEAN CORPUSCULAR HEMOGLOBIN 30.9 uug (24.7-32.8); MEAN CORPUSCULAR HGB CONC 34 g/dL (32.3-35.6); MEAN CORPUSCULAR VOLUME 91.6 fL (75.5-95.3); MONOCYTES # (AUTO) 0.7 K/uL (2.0-10.0); MONOCYTES % (AUTO) 15.1 % (0.0-11.0); NEUTROPHILS # (AUTO) 3.3 K/uL (1.8-8.9); NEUTROPHILS % (AUTO) 72.7 % (38.5-71.5); PLATELET COUNT (AUTO) 158 K/uL (179-408); WHITE BLOOD COUNT (AUTO) 4.5 K/uL (3.8-11.8)
[2019-11-28 17:50] LABS: CARBON DIOXIDE 26 mmol/L (21-32); CHLORIDE 99 mmol/L (98-107); CREATININE 1.9 mg/dL (0.6-1.3); POTASSIUM 4.5 mmol/L (3.5-5.1); UREA NITROGEN, BLOOD 58 mg/dL (7-18)
[2019-11-28 17:54] LABS: GLUCOSE 485 mg/dL (74-106)
[2019-11-28 17:56] LABS: ALANINE AMINOTRANSFERASE 30 U/L (14-59); ALKALINE PHOSPHATASE 211 U/L (50-136); ASPARTATE AMINOTRANSFERASE 24 U/L (15-37); BILIRUBIN,DIRECT 0.2 mg/dL (0.0-0.2); BILIRUBIN,TOTAL 0.5 mg/dL (0.2-1.0); TOTAL PROTEIN, SERUM 7.5 g/dL (6.4-8.2)
[2019-11-28 17:56] LABS: *CLARITY,URINE HAZY (CLEAR)
[2019-11-28 18:01] LABS: BACTERIA,URINE FEW /HPF (NONE SEEN); SQUAMOUS EPITHELIAL CELL,UR MODERATE /HPF (NONE SEEN)
[2019-11-28 18:07] LABS: LIPASE 393 U/L (73-393); MAGNESIUM 2.1 mg/dL (1.8-2.4)
--- NOTE | 2019-11-28 18:09 | NUR ---
Patient ambulated to bathroom to void with slow steady gait, pending U/S & results/ disposition
[2019-11-28 18:12] LABS: BAND % (MANUAL) 4 % (0-10); LYMPHOCYTES % (MANUAL) 14 % (20-40)
[2019-11-28 18:13] LABS: MONOCYTES % (MANUAL) 16 % (2-10); NEUTROPHILS % (MANUAL) 66 % (42-75)
[2019-11-28 18:16] LABS: THYROID STIMULATING HORMONE 8.543 mIU/mL (0.358-3.740)
[2019-11-28] MEDS ORDERED: INSULIN REGULAR, HUMAN 10 UNIT in IV NORMAL SALINE 100 ML IV ONE ×2 (18:45)
[2019-11-28] MEDS ORDERED: FUROSEMIDE 40 MG/4 ML VIAL IV ONE (18:45)
[2019-11-28] MEDS ORDERED: FUROSEMIDE 40 MG/4 ML VIAL ONE (18:57)
--- NOTE | 2019-11-28 19:01 | NUR ---
Patient is admitted to telemetry room 317 , under care of Dr. Jacob Vargas. Belongs List completed. MRSA swab sent to lab.
--- NOTE | 2019-11-28 19:02 | NUR ---
Hands off report given to ANTWAN Townsend.
--- NOTE | 2019-11-28 19:30 | NUR ---
Report given to Kelsey MONCADA Tele.
[2019-11-28 20:15] VITALS: BP 104/49
--- NOTE | 2019-11-28 20:15 | NUR ---
New Admit Patient received into care via gurney from ER. Patient is alert/oriented x3 and has no complaints of pain or discomfort at this time and no acute distress or discomfort noted/observed by nurse. All pertinent assessments done. Patient has BLE pitting edema at +2 and +3 and slight sacral redness, but otherwise skin is intact, warm, and dry. All safety and fall precaution measures are in place. Call light and personal items are within reach at all times. Will continue to monitor and assess.
[2019-11-28] MEDS ORDERED: INSULIN ASPART 1000 UNITS/10 ML VIAL(NOVOLOG) SQ PRN (20:30)
[2019-11-28] MEDS ORDERED: INSULIN REGULAR, HUMAN 300 UNITS/3 ML VIAL SQ PRN (20:45)
[2019-11-28] MEDS ORDERED: DEXTROSE 50% 50 ML DISP.SYRIN IV PRN (20:45)
[2019-11-28] MEDS ORDERED: INSULIN REGULAR, HUMAN 300 UNIT/3 ML VIAL SQ PRN (20:45)
[2019-11-28] MEDS ORDERED: HOME MED MISCELLANEOUS EACHEYE SCH (21:00)
[2019-11-28] MEDS ORDERED: INSULIN GLARGINE,HUM 300 UNITS/3 ML CARTRIDGE SQ SCH (21:00)
[2019-11-28] MEDS: ARIPIPRAZOLE 5 MG TABLET PO SCH (22:07)
[2019-11-28] MEDS: BLOOD SUGAR DIAGNOSTIC 1 EACH STRIP VI SCH (22:07)
[2019-11-28] MEDS: TRAZODONE 50 MG TABLET PO SCH (22:08)
[2019-11-28] MEDS: MIRTAZAPINE 15 MG TABLET PO SCH (22:09)
[2019-11-28] MEDS: POLYVINYL ALCOHOL OPHT DROPS 15 ML BOTTLE EACHEYE SCH (22:23)
[2019-11-29] VITALS: BP 92/53
[2019-11-29] MEDS: IV 1/2NS 1000 ML 1,000 ML IV PRN ×2 (00:33→16:22)
[2019-11-29 04:25] VITALS: BP 98/43
--- NOTE | 2019-11-29 04:25 | NUR ---
Patient noted to have low BP of 98/46 but is asymptomatic. Patient is alert/oriented x4, can answer where who she is, how old she is, where she is and why she is here, as well as, who she spoke with after being admitted to hospital yesterday.
--- NOTE | 2019-11-29 06:00 | NUR ---
Patient slept comfortably throughout night and complaints of pain in right leg that were addressed with warm compresses and repositioning. All nursing needs were met promptly and patient is warm, dry, and comfortable. Patient is requesting to have a PRN order of Tylenol for pain, nurse will endorse to AM shift. Patient is [employer] and requires a Kosher diet, which nurse contacted dietary to notify. All safety and fall precaution measures remain in place. Call light and personal items are within reach at all times.
[2019-11-29] MEDS: LEVOTHYROXINE SODIUM 125 MCG TABLET PO SCH (06:05)
[2019-11-29] MEDS: BLOOD SUGAR DIAGNOSTIC 1 EACH STRIP VI SCH ×5 (06:51→20:55)
[2019-11-29] MEDS: PANTOPRAZOLE SODIUM 40 MG TABLET.DR PO SCH (06:53)
--- NOTE | 2019-11-29 07:30 | NUR ---
Awake, alert, oriented x 4. IVF infusing.
[2019-11-29] MEDS ORDERED: INSULIN REGULAR, HUMAN 300 UNITS/3 ML VIAL SQ PRN (09:00)
[2019-11-29] MEDS ORDERED: BUMETANIDE 1 MG TABLET PO SCH ×2 (09:00→17:00)
[2019-11-29] MEDS ORDERED: LISINOPRIL 5 MG TABLET PO SCH (09:00)
[2019-11-29] MEDS ORDERED: DEXTROSE 50% 50 ML DISP.SYRIN IV PRN (09:00)
[2019-11-29] MEDS ORDERED: ACETAMINOPHEN 325 MG TABLET PO PRN (09:30)
[2019-11-29] MEDS ORDERED: HYDROCODONE/APAP 5-325MG TABLET PO PRN (09:30)
[2019-11-29 09:33] LABS: BASOPHILS % (AUTO) 0.6 % (0.0-2.0); EOSINOPHILS # (AUTO) 0.1 K/uL (0.0-0.7); EOSINOPHILS % (AUTO) 1.1 % (0.0-7.0); HEMATOCRIT 26.5 % (31.2-41.9); HEMOGLOBIN 8.9 g/dL (10.9-14.3); LYMPHOCYTES # (AUTO) 0.9 K/uL (20.0-40.0); LYMPHOCYTES % (AUTO) 18.3 % (20.5-51.5); MEAN CORPUSCULAR HEMOGLOBIN 30.5 uug (24.7-32.8); MEAN CORPUSCULAR HGB CONC 34 g/dL (32.3-35.6); MEAN CORPUSCULAR VOLUME 90.8 fL (75.5-95.3); MONOCYTES # (AUTO) 0.7 K/uL (2.0-10.0); MONOCYTES % (AUTO) 15.5 % (0.0-11.0); NEUTROPHILS % (AUTO) 64.5 % (38.5-71.5); PLATELET COUNT (AUTO) 141 K/uL (179-408); RED BLOOD CELL COUNT(AUTO) 2.92 MIL/uL (3.63-4.92); WHITE BLOOD COUNT (AUTO) 4.7 K/uL (3.8-11.8)
[2019-11-29 09:36] LABS: ALANINE AMINOTRANSFERASE 26 U/L (14-59); ALKALINE PHOSPHATASE 153 U/L (50-136); ASPARTATE AMINOTRANSFERASE 31 U/L (15-37); BILIRUBIN,TOTAL 0.5 mg/dL (0.2-1.0); CARBON DIOXIDE 24 mmol/L (21-32); CHLORIDE 103 mmol/L (98-107); CREATININE 1.9 mg/dL (0.6-1.3); GLUCOSE 172 mg/dL (74-106); MAGNESIUM 1.9 mg/dL (1.8-2.4); PHOSPHOROUS 3.5 mg/dL (2.5-4.9); POTASSIUM 4.3 mmol/L (3.5-5.1); TOTAL PROTEIN, SERUM 6.6 g/dL (6.4-8.2); UREA NITROGEN, BLOOD 56 mg/dL (7-18)
--- NOTE | 2019-11-29 10:00 | NUR ---
PT eval initiated, ambulated with FWW
[2019-11-29] MEDS: LINAGLIPTIN 5 MG TABLET PO SCH (10:18)
[2019-11-29] MEDS: POLYVINYL ALCOHOL OPHT DROPS 15 ML BOTTLE EACHEYE SCH ×4 (10:18→20:51)
[2019-11-29] MEDS: ZINC SULFATE 220 MG CAPSULE PO SCH (10:18)
[2019-11-29] MEDS: APIXABAN 5 MG TABLET PO SCH ×2 (10:19→17:47)
[2019-11-29 10:26] LABS: BAND % (MANUAL) 1 % (0-10); EOSINOPHILS % (MANUAL) 1 % (0-8); LYMPHOCYTES % (MANUAL) 16 % (20-40); MONOCYTES % (MANUAL) 14 % (2-10); NEUTROPHILS % (MANUAL) 68 % (42-75)
[2019-11-29 11:58] VITALS: BP 105/53
[2019-11-29] MEDS: INSULIN REGULAR, HUMAN 300 UNIT/3 ML VIAL SQ PRN (12:02)
[2019-11-29] MEDS ORDERED: CAPSAICIN 0.025% CREAM 56.6 GM TUBE TOP SCH (13:00)
[2019-11-29] MEDS: CAPSAICIN 0.075% CREAM 60 GM TUBE TOP SCH ×2 (13:55→17:48)
--- NOTE | 2019-11-29 17:00 | NUR ---
BG 67, given juice, repeat BG 74. Patient asymptomatic. Dinner served.
[2019-11-29] MEDS: ATORVASTATIN 40 MG TABLET PO SCH (17:48)
[2019-11-29 20:00] VITALS: BP 100/50
[2019-11-29] MEDS: ARIPIPRAZOLE 5 MG TABLET PO SCH (20:51)
[2019-11-29] MEDS: MIRTAZAPINE 15 MG TABLET PO SCH (20:52)
[2019-11-29] MEDS: TRAZODONE 50 MG TABLET PO SCH (20:52)
[2019-11-29] MEDS: INSULIN GLARGINE,HUM 300 UNITS/3 ML CARTRIDGE SQ SCH (20:53)
[2019-11-29] MEDS ORDERED: MELATONIN 3 MG TABLET ONE (22:37)
[2019-11-30] VITALS: BP 102/65
[2019-11-30 05:41] VITALS: BP 98/55
[2019-11-30] MEDS: LEVOTHYROXINE SODIUM 125 MCG TABLET PO SCH (06:09)
[2019-11-30] MEDS: PANTOPRAZOLE SODIUM 40 MG TABLET.DR PO SCH (06:10)
[2019-11-30] MEDS: BLOOD SUGAR DIAGNOSTIC 1 EACH STRIP VI SCH ×4 (06:20→22:25)
[2019-11-30 07:10] LABS: BASOPHILS % (AUTO) 0.7 % (0.0-2.0); EOSINOPHILS # (AUTO) 0.1 K/uL (0.0-0.7); EOSINOPHILS % (AUTO) 1.5 % (0.0-7.0); HEMOGLOBIN 8.7 g/dL (10.9-14.3); LYMPHOCYTES # (AUTO) 0.6 K/uL (20.0-40.0); LYMPHOCYTES % (AUTO) 12.7 % (20.5-51.5); MEAN CORPUSCULAR HEMOGLOBIN 30.4 uug (24.7-32.8); MEAN CORPUSCULAR HGB CONC 34 g/dL (32.3-35.6); MEAN CORPUSCULAR VOLUME 90.3 fL (75.5-95.3); MONOCYTES # (AUTO) 0.5 K/uL (2.0-10.0); MONOCYTES % (AUTO) 11.6 % (0.0-11.0); NEUTROPHILS # (AUTO) 3.5 K/uL (1.8-8.9); NEUTROPHILS % (AUTO) 73.5 % (38.5-71.5); PLATELET COUNT (AUTO) 148 K/uL (179-408); RED BLOOD CELL COUNT(AUTO) 2.88 MIL/uL (3.63-4.92); WHITE BLOOD COUNT (AUTO) 4.7 K/uL (3.8-11.8)
--- NOTE | 2019-11-30 07:15 | NUR ---
DR MARRERO HERE SEEN PATIENT WITH NO NEW ORDERS AT THIS TIME.
[2019-11-30 07:29] LABS: ALANINE AMINOTRANSFERASE 28 U/L (14-59); ALKALINE PHOSPHATASE 157 U/L (50-136); ASPARTATE AMINOTRANSFERASE 29 U/L (15-37); BILIRUBIN,TOTAL 0.4 mg/dL (0.2-1.0); CARBON DIOXIDE 23 mmol/L (21-32); CHLORIDE 100 mmol/L (98-107); CREATINE KINASE, TOTAL 60 U/L (26-192); CREATININE 1.7 mg/dL (0.6-1.3); GLUCOSE 163 mg/dL (74-106); PHOSPHOROUS 3.1 mg/dL (2.5-4.9); POTASSIUM 4.5 mmol/L (3.5-5.1); TOTAL PROTEIN, SERUM 6.4 g/dL (6.4-8.2); UREA NITROGEN, BLOOD 47 mg/dL (7-18)
--- NOTE | 2019-11-30 07:30 | NUR ---
RECEIVED PATIENT IN BED AWAKE ALERT AND ORIENTED COOPERATIVE DENIES DISCOMFORTS NO S/S OF HYPO/HYPERGLYCEMIC REACTIONS AT THIS TIME ON ROOM AIR WITH NO SHORTNESS OF BREATH IVF REMAINS IN PROGRESS ORDERED CALL LIGHTS AND PERSONAL BELONGINGS ARE WITHIN EASY REACH AT THIS TIME WILL CONTINUE TO OBSERVE.
[2019-11-30] MEDS: INSULIN REGULAR, HUMAN 300 UNIT/3 ML VIAL SQ PRN ×4 (08:01→22:30)
[2019-11-30] MEDS: ZINC SULFATE 220 MG CAPSULE PO SCH (08:02)
[2019-11-30] MEDS: LINAGLIPTIN 5 MG TABLET PO SCH (08:02)
[2019-11-30] MEDS: CAPSAICIN 0.075% CREAM 60 GM TUBE TOP SCH ×2 (08:02→12:41)
[2019-11-30] MEDS: POLYVINYL ALCOHOL OPHT DROPS 15 ML BOTTLE EACHEYE SCH ×4 (08:03→21:50)
[2019-11-30] MEDS: APIXABAN 5 MG TABLET PO SCH ×2 (08:04→16:25)
--- NOTE | 2019-11-30 08:25 | NUR ---
XIMENA HERE STATED SEEING THE PATIENT MEDICALLY WITH NO NEW ORDERS AT THIS TIME.
[2019-11-30] MEDS: BENZOCAINE/MENTH/CETYLPYRD LOZENGE MM PRN ×2 (10:10→18:15)
[2019-11-30 11:12] VITALS: BP 103/59
--- NOTE | 2019-11-30 14:49 | NUR ---
RESTING DENIES PAIN OR DISCOMFORTS ABLE TO MAKE NEEDS KNOWN ASSISTED NEEDED MADE COMFORTABLE WILL CONTINUE TO PROVIDE SAFE AND THERAPEUTIC ENVIRONMENT AT ALL TIMES
--- NOTE | 2019-11-30 15:51 | NUR ---
PATIENT STATED THAT THE CAPSAICIN IS BURNING HER BACK CHECKED HER BACK NO REDNESS AT THIS TIME ICE COLD COMPRESS APPLIED AND SHE STATED FELT BETTER AND REQUESTED TO ASK THE DOCTOR TO CH[facility] WITH ORDER TO SWITCH TO [facility]
[2019-11-30 16:00] VITALS: BP 105/52
[2019-11-30] MEDS ORDERED: METHYL SALICYLATE/MENTHOL CREAM 28 GM TUBE TOP PRN (17:00)
[2019-11-30] MEDS: ATORVASTATIN 40 MG TABLET PO SCH (17:10)
--- NOTE | 2019-11-30 18:00 | NUR ---
PATIENT IS RESTING AT THIS TIME APPETITE IS FAIR IVF IN PROGRESS ORDERED TELE MONITOR AFIB CONTROLLED MADE COMFORTABLE WILL CONTINUE TO OBSERVE.
[2019-11-30] MEDS: IV 1/2NS 1000 ML 1,000 ML IV PRN (18:07)
[2019-11-30 20:00] VITALS: BP 152/82
--- NOTE | 2019-11-30 20:00 | NUR ---
AWAKE. ALERT X3 COMPLAIN OF UNABLE TO BREATHE PULSE OXIMETRY ROOM AIR 98% RESPIRATION EVEN AND UNLABORED.O2 1 LITER PLACED TO CALM PATIENT DOWN. PATIENT SO DEMANDING CALLED SEVERAL TIMES TO ASK FOR CHANGED THE PAD,GET ME BLANKET GET ME ORANGE JUICE, GET MY EYE DROPS, ETC.STAYED IN ROOM TO CALM PATIENT DOWN. MADE COMFORTABLE, HS CARE DOWN.
[2019-11-30] MEDS ORDERED: MELATONIN 3 MG TABLET PO SCH ×2 (21:00)
[2019-11-30] MEDS: ARIPIPRAZOLE 5 MG TABLET PO SCH (21:50)
[2019-11-30] MEDS: MIRTAZAPINE 15 MG TABLET PO SCH (21:51)
[2019-11-30] MEDS: TRAZODONE 50 MG TABLET PO SCH (21:52)
[2019-11-30] MEDS: INSULIN GLARGINE,HUM 300 UNITS/3 ML CARTRIDGE SQ SCH (22:31)
[2019-11-30 23:54] VITALS: BP_SYST 120; BP_SYST 150; BP_DIAS 80
[2019-12-01 04:12] LABS: *CREATININE,URINE 74.2 mg/dL (30-125); *URINE TOTAL PROTEIN RANDOM 35.7 mg/dL (<150/24HR)
[2019-12-01 05:45] VITALS: BP 114/76
--- NOTE | 2019-12-01 06:07 | NUR ---
SLEPT AT SHORT INTERVALS IN BETWEEN SO MANY CALLS,INCONTINENT OF URINE AND STOOL UA SENT TO LAB. EARLY BREAKFAST SERVED.
[2019-12-01] MEDS: BLOOD SUGAR DIAGNOSTIC 1 EACH STRIP VI SCH ×2 (06:16→11:20)
[2019-12-01] MEDS: PANTOPRAZOLE SODIUM 40 MG TABLET.DR PO SCH (06:17)
[2019-12-01] MEDS: LEVOTHYROXINE SODIUM 125 MCG TABLET PO SCH (06:18)
--- NOTE | 2019-12-01 07:00 | NUR ---
Received patient in bed alert, awake, and oriented. On O2 @ 1L due to complaints of SOB last night, but none today. IV on right forearm 20g infusing 0.45NS, site clean and no signs of infiltration. Bilateral john hose removed to check for skin issues, skin intact, feet has pitting 1+ edema. Not in acute distress. Bed locked, in lowest position, siderails 2x up. Call light within reach.
[2019-12-01 07:41] LABS: BASOPHILS % (AUTO) 0.3 % (0.0-2.0); EOSINOPHILS # (AUTO) 0.1 K/uL (0.0-0.7); EOSINOPHILS % (AUTO) 1.4 % (0.0-7.0); HEMATOCRIT 25.7 % (31.2-41.9); HEMOGLOBIN 8.7 g/dL (10.9-14.3); LYMPHOCYTES # (AUTO) 0.6 K/uL (20.0-40.0); MEAN CORPUSCULAR HEMOGLOBIN 30.8 uug (24.7-32.8); MEAN CORPUSCULAR HGB CONC 34 g/dL (32.3-35.6); MEAN CORPUSCULAR VOLUME 91.2 fL (75.5-95.3); MONOCYTES # (AUTO) 0.6 K/uL (2.0-10.0); MONOCYTES % (AUTO) 15.7 % (0.0-11.0); NEUTROPHILS # (AUTO) 2.7 K/uL (1.8-8.9); NEUTROPHILS % (AUTO) 68.6 % (38.5-71.5); PLATELET COUNT (AUTO) 144 K/uL (179-408); RED BLOOD CELL COUNT(AUTO) 2.82 MIL/uL (3.63-4.92)
[2019-12-01 07:42] LABS: CARBON DIOXIDE 25 mmol/L (21-32); CHLORIDE 99 mmol/L (98-107); CREATININE 1.4 mg/dL (0.6-1.3); GLUCOSE 190 mg/dL (74-106); POTASSIUM 4.9 mmol/L (3.5-5.1); UREA NITROGEN, BLOOD 33 mg/dL (7-18)
[2019-12-01 08:00] VITALS: BP 117/58
[2019-12-01] MEDS: POLYVINYL ALCOHOL OPHT DROPS 15 ML BOTTLE EACHEYE SCH ×2 (08:15→12:34)
[2019-12-01] MEDS: LINAGLIPTIN 5 MG TABLET PO SCH (08:16)
[2019-12-01] MEDS: BENZOCAINE/MENTH/CETYLPYRD LOZENGE MM PRN (08:16)
[2019-12-01] MEDS: ZINC SULFATE 220 MG CAPSULE PO SCH (08:16)
[2019-12-01] MEDS: INSULIN REGULAR, HUMAN 300 UNIT/3 ML VIAL SQ PRN (08:19)
[2019-12-01] MEDS: APIXABAN 5 MG TABLET PO SCH (08:19)
[2019-12-01 08:27] LABS: BAND % (MANUAL) 2 % (0-10); LYMPHOCYTES % (MANUAL) 16 % (20-40); MONOCYTES % (MANUAL) 13 % (2-10); NEUTROPHILS % (MANUAL) 69 % (42-75)
[2019-12-01] MEDS: IV 1/2NS 1000 ML 1,000 ML IV PRN (10:08)
[2019-12-01] MEDS ORDERED: LIDOCAINE 5% PATCH TD SCH (10:10)
--- NOTE | 2019-12-01 10:30 | NUR ---
Gave bed bath, changed linens and pads. Noticed redness on sacrum, A&D applied. Patient tolerated well. Patient got up to the bathroom with walker and guarded assistance to do oral care. No acute distress. Will continue to monitor.
[2019-12-01 12:00] VITALS: BP 124/62
--- NOTE | 2019-12-01 13:35 | NUR ---
DC report given to Ynes MONCADA.
--- NOTE | 2019-12-01 13:55 | NUR ---
Patient left unit on a wheelchair accompanied by Guillermo MONCADA. Patient just had OT and tolerated well. IV on right forearm removed, had to put pressure for 5 minutes due to bleeding, taking Eliquis. Bleeding was controlled. Patient's belongings checked and all accounted for, patient signed form. DC papers and instructions given and signed by patient, verbalized understanding. No complaints, no SOB, no acute distress, and eager to go to ARU.
[2019-12-03 05:06] LABS: A/G RATIO 0.9 (0.7-1.7); ALBUMIN 2.6 g/dL (2.9-4.4); ALPHA-1-GLOBULIN 0.2 g/dL (0.0-0.4); ALPHA-2-GLOBULIN 0.7 g/dL (0.4-1.0); BETA GLOBULIN 0.8 g/dL (0.7-1.3); GAMMA GLOBULIN 1.2 g/dL (0.4-1.8); M-SPIKE Not Observed g/dL (Not Observed)
== END 2019-12-01 13:55 | DRG 637 ==
LOC: ER 17:06 → TELE3 19:37
PROVIDERS: ADMIT Internal Medicine; ATTEND Internal Medicine
DX: E11.65 Type 2 diabetes mellitus with hyperglycemia (principal); N17.0 Acute kidney failure with tubular necrosis; I13.0 Hypertensive heart and chronic kidney disease with heart failure and stage 1 through stage 4 chronic kidney disease, or unspecified chronic kidney disease; E87.1 Hypo-osmolality and hyponatremia; E44.0 Moderate protein-calorie malnutrition; E87.2 Acidosis; N39.0 Urinary tract infection, site not specified; D68.69 Other thrombophilia; I50.32 Chronic diastolic (congestive) heart failure; E11.22 Type 2 diabetes mellitus with diabetic chronic kidney disease; N18.9 Chronic kidney disease, unspecified; F41.9 Anxiety disorder, unspecified; G89.29 Other chronic pain; I25.10 Atherosclerotic heart disease of native coronary artery without angina pectoris; I48.91 Unspecified atrial fibrillation; Z79.01 Long term (current) use of anticoagulants; Z79.4 Long term (current) use of insulin; Z85.3 Personal history of malignant neoplasm of breast; Z95.0 Presence of cardiac pacemaker; Z95.1 Presence of aortocoronary bypass graft; Z95.2 Presence of prosthetic heart valve; E03.9 Hypothyroidism, unspecified; K21.9 Gastro-esophageal reflux disease without esophagitis; E88.09 Other disorders of plasma-protein metabolism, not elsewhere classified; Z68.26 Body mass index [BMI] 26.0-26.9, adult; D63.8 Anemia in other chronic diseases classified elsewhere
CPT/HCPCS: 36415; 70030-TC; 71045; 76770; 83690; 83735; 83970; 84100; 84155; 84156; 84165; 84300; 84443; 84480; 85025; 87086; 93005; A4663; A9150; G0378; J1815; J1940; J3490; J7030

== ENCOUNTER 2019-12-01 15:18 | Inpatient (IN) | payer MEDICARE, OTHER ==
[~2019-12-01] VITALS: Ht 162.6 cm; Wt 69.4 kg
[2019-12-01 16:00] VITALS: BP 126/36
[2019-12-01] MEDS ORDERED: DEXTROSE 50% 50 ML DISP.SYRIN IV PRN (18:30)
[2019-12-01] MEDS: BUMETANIDE 1 MG TABLET PO SCH (19:36)
[2019-12-01] MEDS: APIXABAN 5 MG TABLET PO SCH (19:39)
[2019-12-01 20:12] VITALS: BP 139/65
[2019-12-01] MEDS: TRAZODONE 50 MG TABLET PO SCH (20:21)
[2019-12-01] MEDS: ARIPIPRAZOLE 5 MG TABLET PO SCH (20:22)
[2019-12-01] MEDS: POLYVINYL ALCOHOL OPHT DROPS 15 ML BOTTLE EACHEYE SCH (20:23)
[2019-12-01] MEDS: MIRTAZAPINE 15 MG TABLET PO SCH (20:25)
[2019-12-01] MEDS: BLOOD SUGAR DIAGNOSTIC 1 EACH STRIP VI SCH (20:31)
[2019-12-01] MEDS: INSULIN REGULAR, HUMAN 300 UNITS/3 ML VIAL SQ PRN (20:34)
[2019-12-01] MEDS: INSULIN GLARGINE,HUM 300 UNITS/3 ML CARTRIDGE SQ SCH (20:35)
[2019-12-02 05:17] VITALS: BP 122/50
[2019-12-02] MEDS: LEVOTHYROXINE SODIUM 137 MCG TABLET PO SCH (06:20)
[2019-12-02] MEDS: BLOOD SUGAR DIAGNOSTIC 1 EACH STRIP VI SCH ×4 (06:31→22:46)
[2019-12-02] MEDS: PANTOPRAZOLE SODIUM 40 MG TABLET.DR PO SCH (06:31)
[2019-12-02] MEDS: ZINC SULFATE 220 MG CAPSULE PO SCH (08:46)
[2019-12-02] MEDS: POLYVINYL ALCOHOL OPHT DROPS 15 ML BOTTLE EACHEYE SCH ×4 (08:46→23:03)
[2019-12-02] MEDS: BUMETANIDE 1 MG TABLET PO SCH ×2 (08:47→16:37)
[2019-12-02] MEDS: LINAGLIPTIN 5 MG TABLET PO SCH (08:47)
[2019-12-02] MEDS: APIXABAN 5 MG TABLET PO SCH ×2 (08:52→17:41)
[2019-12-02 09:00] VITALS: BP 142/65
[2019-12-02] MEDS: LISINOPRIL 5 MG TABLET PO SCH (09:09)
[2019-12-02] MEDS: INSULIN REGULAR, HUMAN 300 UNIT/3 ML VIAL SQ PRN (12:33)
[2019-12-02 15:57] VITALS: BP 134/76
[2019-12-02] MEDS ORDERED: METOLAZONE 5 MG TABLET PO ONE (16:00)
[2019-12-02 20:00] VITALS: BP 122/52
[2019-12-02] MEDS: ATORVASTATIN 40 MG TABLET PO SCH (22:40)
[2019-12-02] MEDS: TRAZODONE 50 MG TABLET PO SCH (22:41)
[2019-12-02] MEDS: ARIPIPRAZOLE 5 MG TABLET PO SCH (23:04)
[2019-12-02] MEDS: INSULIN GLARGINE,HUM 300 UNITS/3 ML CARTRIDGE SQ SCH (23:12)
[2019-12-02] MEDS ORDERED: MIRTAZAPINE 15 MG TABLET ONE (23:29)
[2019-12-02] MEDS: MIRTAZAPINE 15 MG TABLET PO SCH (23:33)
[2019-12-03] MEDS ORDERED: ACETAMINOPHEN 325 MG TABLET ONE (02:33)
[2019-12-03] MEDS: ACETAMINOPHEN 325 MG TABLET PO PRN (02:39)
[2019-12-03] MEDS ORDERED: PANTOPRAZOLE SODIUM 40 MG TABLET.DR PO ONE (03:40)
[2019-12-03 05:33] VITALS: BP 130/68
[2019-12-03] MEDS: LEVOTHYROXINE SODIUM 137 MCG TABLET PO SCH (06:25)
[2019-12-03] MEDS: PANTOPRAZOLE SODIUM 40 MG TABLET.DR PO SCH (06:31)
[2019-12-03] MEDS: BLOOD SUGAR DIAGNOSTIC 1 EACH STRIP VI SCH ×4 (06:32→22:08)
[2019-12-03] MEDS: LINAGLIPTIN 5 MG TABLET PO SCH (08:44)
[2019-12-03] MEDS: ZINC SULFATE 220 MG CAPSULE PO SCH (08:44)
[2019-12-03] MEDS: LISINOPRIL 5 MG TABLET PO SCH (08:44)
[2019-12-03] MEDS: BUMETANIDE 1 MG TABLET PO SCH ×2 (08:45→16:15)
[2019-12-03] MEDS: POLYVINYL ALCOHOL OPHT DROPS 15 ML BOTTLE EACHEYE SCH ×4 (08:45→22:12)
[2019-12-03] MEDS: APIXABAN 5 MG TABLET PO SCH ×2 (08:48→16:24)
[2019-12-03] MEDS: LIDOCAINE 5% PATCH TD SCH (10:29)
[2019-12-03] MEDS: BENZOCAINE/MENTH/CETYLPYRD LOZENGE MM PRN (13:12)
[2019-12-03] MEDS ORDERED: BACITRACIN/POLYMYXIN B OINT 15 GM TUBE TOP SCH (15:00)
[2019-12-03] MEDS: INSULIN REGULAR, HUMAN 300 UNIT/3 ML VIAL SQ PRN (16:24)
[2019-12-03 19:00] VITALS: BP 122/59
[2019-12-03] MEDS: MUPIROCIN 2% OINT 22 GM TUBE NS SCH ×2 (19:13→22:05)
[2019-12-03 20:00] VITALS: BP 105/54
[2019-12-03] MEDS: ARIPIPRAZOLE 5 MG TABLET PO SCH (22:05)
[2019-12-03] MEDS: MIRTAZAPINE 15 MG TABLET PO SCH (22:05)
[2019-12-03] MEDS: ATORVASTATIN 40 MG TABLET PO SCH (22:07)
[2019-12-03] MEDS: TEMAZEPAM 7.5 MG CAPSULE PO PRN (22:07)
[2019-12-03] MEDS: TRAZODONE 50 MG TABLET PO SCH (22:08)
[2019-12-03] MEDS: INSULIN GLARGINE,HUM 300 UNITS/3 ML CARTRIDGE SQ SCH (22:12)
[2019-12-04 06:00] VITALS: BP 102/42
[2019-12-04 06:27] LABS: BASOPHILS % (AUTO) 0.6 % (0.0-2.0); EOSINOPHILS % (AUTO) 0.9 % (0.0-7.0); HEMOGLOBIN 8.5 g/dL (10.9-14.3); LYMPHOCYTES % (AUTO) 22.2 % (20.5-51.5); MEAN CORPUSCULAR HEMOGLOBIN 30.3 uug (24.7-32.8); MEAN CORPUSCULAR HGB CONC 34 g/dL (32.3-35.6); MEAN CORPUSCULAR VOLUME 89.5 fL (75.5-95.3); MONOCYTES # (AUTO) 0.7 K/uL (2.0-10.0); MONOCYTES % (AUTO) 16.7 % (0.0-11.0); NEUTROPHILS # (AUTO) 2.7 K/uL (1.8-8.9); NEUTROPHILS % (AUTO) 59.6 % (38.5-71.5); PLATELET COUNT (AUTO) 151 K/uL (179-408); RED BLOOD CELL COUNT(AUTO) 2.79 MIL/uL (3.63-4.92); WHITE BLOOD COUNT (AUTO) 4.5 K/uL (3.8-11.8)
[2019-12-04 06:39] LABS: ALANINE AMINOTRANSFERASE 24 U/L (14-59); ALKALINE PHOSPHATASE 133 U/L (50-136); ASPARTATE AMINOTRANSFERASE 25 U/L (15-37); BILIRUBIN,TOTAL 0.5 mg/dL (0.2-1.0); CARBON DIOXIDE 31 mmol/L (21-32); CHLORIDE 97 mmol/L (98-107); CREATININE 1.7 mg/dL (0.6-1.3); GLUCOSE 54 mg/dL (74-106); MAGNESIUM 1.6 mg/dL (1.8-2.4); PHOSPHOROUS 3.8 mg/dL (2.5-4.9); POTASSIUM 4.2 mmol/L (3.5-5.1); TOTAL PROTEIN, SERUM 5.9 g/dL (6.4-8.2); UREA NITROGEN, BLOOD 34 mg/dL (7-18)
[2019-12-04] MEDS: LEVOTHYROXINE SODIUM 137 MCG TABLET PO SCH (07:13)
[2019-12-04] MEDS: PANTOPRAZOLE SODIUM 40 MG TABLET.DR PO SCH (07:14)
[2019-12-04] MEDS: BLOOD SUGAR DIAGNOSTIC 1 EACH STRIP VI SCH ×4 (07:14→20:40)
[2019-12-04 07:37] LABS: BAND % (MANUAL) 6 % (0-10); EOSINOPHILS % (MANUAL) 2 % (0-8); LYMPHOCYTES % (MANUAL) 18 % (20-40); MONOCYTES % (MANUAL) 17 % (2-10); NEUTROPHILS % (MANUAL) 57 % (42-75)
[2019-12-04] MEDS: LISINOPRIL 5 MG TABLET PO SCH (09:00)
[2019-12-04] MEDS: LIDOCAINE 5% PATCH TD SCH (09:12)
[2019-12-04] MEDS: POLYVINYL ALCOHOL OPHT DROPS 15 ML BOTTLE EACHEYE SCH ×4 (09:16→20:35)
[2019-12-04] MEDS: BUMETANIDE 1 MG TABLET PO SCH ×2 (09:16→17:59)
[2019-12-04] MEDS: LINAGLIPTIN 5 MG TABLET PO SCH (09:17)
[2019-12-04] MEDS: ZINC SULFATE 220 MG CAPSULE PO SCH (09:21)
[2019-12-04] MEDS: APIXABAN 5 MG TABLET PO SCH ×2 (09:23→18:01)
[2019-12-04] MEDS: MUPIROCIN 2% OINT 22 GM TUBE NS SCH ×2 (09:26→20:36)
[2019-12-04] MEDS: INSULIN REGULAR, HUMAN 300 UNIT/3 ML VIAL SQ PRN (12:09)
[2019-12-04] MEDS ORDERED: MAGNESIUM SULFATE/D5W 100 ML IV SCH (12:30)
[2019-12-04] MEDS ORDERED: MAGNESIUM OXIDE 400 MG TABLET PO ONE (14:15)
[2019-12-04 15:26] VITALS: BP 110/52
[2019-12-04 17:54] LABS: IRON, SERUM 22 ug/dL (50-175)
[2019-12-04 20:03] VITALS: BP 104/47
[2019-12-04] MEDS: MIRTAZAPINE 15 MG TABLET PO SCH (20:36)
[2019-12-04] MEDS: ARIPIPRAZOLE 5 MG TABLET PO SCH (20:37)
[2019-12-04] MEDS: ATORVASTATIN 40 MG TABLET PO SCH (20:37)
[2019-12-04] MEDS: TRAZODONE 50 MG TABLET PO SCH (20:37)
[2019-12-04] MEDS: INSULIN GLARGINE,HUM 300 UNITS/3 ML CARTRIDGE SQ SCH (20:46)
[2019-12-04] MEDS: INSULIN REGULAR, HUMAN 300 UNITS/3 ML VIAL SQ PRN (20:47)
[2019-12-04] MEDS: BENZOCAINE/MENTH/CETYLPYRD LOZENGE MM PRN (22:34)
[2019-12-05] MEDS: TEMAZEPAM 7.5 MG CAPSULE PO PRN (01:38)
[2019-12-05 04:15] VITALS: BP 108/58
[2019-12-05] MEDS: BLOOD SUGAR DIAGNOSTIC 1 EACH STRIP VI SCH ×4 (05:28→21:39)
[2019-12-05] MEDS: PANTOPRAZOLE SODIUM 40 MG TABLET.DR PO SCH (05:30)
[2019-12-05] MEDS: LEVOTHYROXINE SODIUM 137 MCG TABLET PO SCH (05:30)
[2019-12-05 06:20] LABS: CARBON DIOXIDE 32 mmol/L (21-32); CHLORIDE 95 mmol/L (98-107); CREATININE 1.8 mg/dL (0.6-1.3); GLUCOSE 110 mg/dL (74-106); MAGNESIUM 1.8 mg/dL (1.8-2.4); POTASSIUM 4.7 mmol/L (3.5-5.1); UREA NITROGEN, BLOOD 36 mg/dL (7-18)
[2019-12-05] MEDS: POLYVINYL ALCOHOL OPHT DROPS 15 ML BOTTLE EACHEYE SCH ×4 (07:03→21:47)
[2019-12-05] MEDS: BUMETANIDE 1 MG TABLET PO SCH ×2 (08:23→16:53)
[2019-12-05] MEDS: ZINC SULFATE 220 MG CAPSULE PO SCH (08:24)
[2019-12-05] MEDS: LIDOCAINE 5% PATCH TD SCH (08:24)
[2019-12-05] MEDS: LINAGLIPTIN 5 MG TABLET PO SCH (08:24)
[2019-12-05] MEDS: MUPIROCIN 2% OINT 22 GM TUBE NS SCH ×2 (08:25→21:46)
[2019-12-05] MEDS: LISINOPRIL 5 MG TABLET PO SCH (08:25)
[2019-12-05] MEDS: APIXABAN 5 MG TABLET PO SCH ×2 (08:28→16:54)
[2019-12-05 11:33] VITALS: BP 96/49
[2019-12-05] MEDS: INSULIN REGULAR, HUMAN 300 UNIT/3 ML VIAL SQ PRN (12:13)
[2019-12-05 15:35] VITALS: BP 118/62
[2019-12-05 20:03] VITALS: BP 101/56
[2019-12-05] MEDS: INSULIN REGULAR, HUMAN 300 UNITS/3 ML VIAL SQ PRN (21:41)
[2019-12-05] MEDS: ATORVASTATIN 40 MG TABLET PO SCH (21:44)
[2019-12-05] MEDS: ARIPIPRAZOLE 5 MG TABLET PO SCH (21:44)
[2019-12-05] MEDS: MELATONIN 3 MG TABLET PO SCH (21:44)
[2019-12-05] MEDS: MIRTAZAPINE 15 MG TABLET PO SCH (21:45)
[2019-12-05] MEDS: TRAZODONE 50 MG TABLET PO SCH (21:46)
[2019-12-05] MEDS: INSULIN GLARGINE,HUM 300 UNITS/3 ML CARTRIDGE SQ SCH (21:48)
[2019-12-06] MEDS: ACETAMINOPHEN 325 MG TABLET PO PRN (02:34)
[2019-12-06 05:41] VITALS: BP 128/53
[2019-12-06] MEDS: PANTOPRAZOLE SODIUM 40 MG TABLET.DR PO SCH (06:29)
[2019-12-06] MEDS: LEVOTHYROXINE SODIUM 137 MCG TABLET PO SCH (06:32)
[2019-12-06] MEDS: BLOOD SUGAR DIAGNOSTIC 1 EACH STRIP VI SCH ×4 (07:46→20:15)
[2019-12-06] MEDS: ZINC SULFATE 220 MG CAPSULE PO SCH (08:16)
[2019-12-06] MEDS: BUMETANIDE 1 MG TABLET PO SCH ×2 (08:17→17:05)
[2019-12-06] MEDS: POLYVINYL ALCOHOL OPHT DROPS 15 ML BOTTLE EACHEYE SCH ×4 (08:17→20:14)
[2019-12-06] MEDS: MUPIROCIN 2% OINT 22 GM TUBE NS SCH ×2 (08:17→20:15)
[2019-12-06] MEDS: LINAGLIPTIN 5 MG TABLET PO SCH (08:17)
[2019-12-06] MEDS: LIDOCAINE 5% PATCH TD SCH (08:18)
[2019-12-06] MEDS: LISINOPRIL 5 MG TABLET PO SCH (08:18)
[2019-12-06] MEDS: APIXABAN 5 MG TABLET PO SCH ×2 (08:19→17:08)
[2019-12-06 12:00] VITALS: BP 94/46
[2019-12-06 16:20] VITALS: BP 101/49
[2019-12-06 19:52] VITALS: BP 104/47
[2019-12-06] MEDS: INSULIN REGULAR, HUMAN 300 UNITS/3 ML VIAL SQ PRN (20:23)
[2019-12-06] MEDS: INSULIN GLARGINE,HUM 300 UNITS/3 ML CARTRIDGE SQ SCH (20:24)
[2019-12-06] MEDS: MELATONIN 3 MG TABLET PO SCH (20:27)
[2019-12-06] MEDS: ARIPIPRAZOLE 5 MG TABLET PO SCH (20:27)
[2019-12-06] MEDS: ATORVASTATIN 40 MG TABLET PO SCH (20:28)
[2019-12-06] MEDS: MIRTAZAPINE 15 MG TABLET PO SCH (20:28)
[2019-12-06] MEDS: TRAZODONE 50 MG TABLET PO SCH (20:29)
[2019-12-06] MEDS: TEMAZEPAM 7.5 MG CAPSULE PO PRN (23:22)
[2019-12-07 04:00] VITALS: BP 102/65
[2019-12-07] MEDS: LEVOTHYROXINE SODIUM 137 MCG TABLET PO SCH (06:07)
[2019-12-07 06:26] LABS: BASOPHILS % (AUTO) 0.6 % (0.0-2.0); HEMOGLOBIN 8.8 g/dL (10.9-14.3); LYMPHOCYTES # (AUTO) 0.9 K/uL (20.0-40.0); MEAN CORPUSCULAR HEMOGLOBIN 30.4 uug (24.7-32.8); MEAN CORPUSCULAR HGB CONC 34 g/dL (32.3-35.6); MEAN CORPUSCULAR VOLUME 89.4 fL (75.5-95.3); MONOCYTES # (AUTO) 0.7 K/uL (2.0-10.0); MONOCYTES % (AUTO) 17.1 % (0.0-11.0); NEUTROPHILS # (AUTO) 2.3 K/uL (1.8-8.9); NEUTROPHILS % (AUTO) 58.3 % (38.5-71.5); PLATELET COUNT (AUTO) 140 K/uL (179-408); RED BLOOD CELL COUNT(AUTO) 2.91 MIL/uL (3.63-4.92)
[2019-12-07 06:28] LABS: CARBON DIOXIDE 33 mmol/L (21-32); CHLORIDE 94 mmol/L (98-107); CREATININE 1.9 mg/dL (0.6-1.3); GLUCOSE 65 mg/dL (74-106); MAGNESIUM 1.9 mg/dL (1.8-2.4); PHOSPHOROUS 4.4 mg/dL (2.5-4.9); POTASSIUM 4.6 mmol/L (3.5-5.1); UREA NITROGEN, BLOOD 39 mg/dL (7-18)
[2019-12-07] MEDS: BLOOD SUGAR DIAGNOSTIC 1 EACH STRIP VI SCH ×4 (06:31→21:00)
[2019-12-07] MEDS: PANTOPRAZOLE SODIUM 40 MG TABLET.DR PO SCH (06:31)
[2019-12-07 07:18] LABS: IRON, SERUM 26 ug/dL (50-175)
[2019-12-07 08:08] LABS: EOSINOPHILS % (MANUAL) 2 % (0-8); LYMPHOCYTES % (MANUAL) 25 % (20-40); MONOCYTES % (MANUAL) 13 % (2-10); NEUTROPHILS % (MANUAL) 60 % (42-75)
[2019-12-07] MEDS: LISINOPRIL 5 MG TABLET PO SCH (09:00)
[2019-12-07] MEDS: LINAGLIPTIN 5 MG TABLET PO SCH (10:17)
[2019-12-07] MEDS: BUMETANIDE 1 MG TABLET PO SCH ×2 (10:18→18:26)
[2019-12-07] MEDS: ZINC SULFATE 220 MG CAPSULE PO SCH (10:18)
[2019-12-07] MEDS: APIXABAN 5 MG TABLET PO SCH ×2 (10:25→18:28)
[2019-12-07] MEDS: POLYVINYL ALCOHOL OPHT DROPS 15 ML BOTTLE EACHEYE SCH ×4 (10:27→20:49)
[2019-12-07] MEDS: MUPIROCIN 2% OINT 22 GM TUBE NS SCH ×2 (10:27→20:49)
[2019-12-07] MEDS: LIDOCAINE 5% PATCH TD SCH (10:27)
[2019-12-07 11:08] VITALS: BP 124/54
[2019-12-07 16:25] VITALS: BP 118/70
[2019-12-07] MEDS: INSULIN REGULAR, HUMAN 300 UNIT/3 ML VIAL SQ PRN (18:20)
[2019-12-07] MEDS: MELATONIN 3 MG TABLET PO SCH (20:49)
[2019-12-07] MEDS: MIRTAZAPINE 15 MG TABLET PO SCH (20:49)
[2019-12-07] MEDS: ATORVASTATIN 40 MG TABLET PO SCH (20:50)
[2019-12-07] MEDS: ARIPIPRAZOLE 5 MG TABLET PO SCH (20:50)
[2019-12-07] MEDS: TRAZODONE 50 MG TABLET PO SCH (20:50)
[2019-12-07] MEDS: INSULIN GLARGINE,HUM 300 UNITS/3 ML CARTRIDGE SQ SCH (20:59)
[2019-12-07 21:13] VITALS: BP 129/69
[2019-12-08] MEDS: ACETAMINOPHEN 325 MG TABLET PO PRN (01:41)
[2019-12-08 04:00] VITALS: BP 112/51
[2019-12-08] MEDS: LEVOTHYROXINE SODIUM 137 MCG TABLET PO SCH (06:01)
[2019-12-08] MEDS: PANTOPRAZOLE SODIUM 40 MG TABLET.DR PO SCH (06:46)
[2019-12-08] MEDS: BLOOD SUGAR DIAGNOSTIC 1 EACH STRIP VI SCH ×4 (06:47→20:33)
[2019-12-08] MEDS: LINAGLIPTIN 5 MG TABLET PO SCH (09:19)
[2019-12-08] MEDS: LIDOCAINE 5% PATCH TD SCH (09:19)
[2019-12-08] MEDS: BUMETANIDE 1 MG TABLET PO SCH ×2 (09:19→16:58)
[2019-12-08] MEDS: ZINC SULFATE 220 MG CAPSULE PO SCH (09:19)
[2019-12-08] MEDS: APIXABAN 5 MG TABLET PO SCH ×2 (09:22→17:01)
[2019-12-08] MEDS: LISINOPRIL 5 MG TABLET PO SCH (09:23)
[2019-12-08] MEDS: POLYVINYL ALCOHOL OPHT DROPS 15 ML BOTTLE EACHEYE SCH ×4 (09:24→20:29)
[2019-12-08] MEDS: MUPIROCIN 2% OINT 22 GM TUBE NS SCH ×2 (09:25→20:29)
[2019-12-08 11:42] VITALS: BP 123/54
[2019-12-08 15:33] VITALS: BP 128/68
[2019-12-08] MEDS: TRAZODONE 50 MG TABLET PO SCH (20:28)
[2019-12-08] MEDS: ARIPIPRAZOLE 5 MG TABLET PO SCH (20:28)
[2019-12-08] MEDS: ATORVASTATIN 40 MG TABLET PO SCH (20:28)
[2019-12-08] MEDS: MIRTAZAPINE 15 MG TABLET PO SCH (20:29)
[2019-12-08] MEDS: MELATONIN 3 MG TABLET PO SCH (20:29)
[2019-12-08] MEDS: INSULIN GLARGINE,HUM 300 UNITS/3 ML CARTRIDGE SQ SCH (20:35)
[2019-12-08] MEDS: INSULIN REGULAR, HUMAN 300 UNITS/3 ML VIAL SQ PRN (20:36)
[2019-12-08 21:22] VITALS: BP 102/56
[2019-12-08] MEDS: TEMAZEPAM 7.5 MG CAPSULE PO PRN (23:20)
[2019-12-09 05:43] VITALS: BP 107/57
[2019-12-09] MEDS: PANTOPRAZOLE SODIUM 40 MG TABLET.DR PO SCH (06:10)
[2019-12-09] MEDS: BLOOD SUGAR DIAGNOSTIC 1 EACH STRIP VI SCH ×4 (06:10→22:07)
[2019-12-09] MEDS: LEVOTHYROXINE SODIUM 137 MCG TABLET PO SCH (06:11)
[2019-12-09 07:49] VITALS: BP 110/56
[2019-12-09] MEDS: ZINC SULFATE 220 MG CAPSULE PO SCH (08:09)
[2019-12-09] MEDS: POLYVINYL ALCOHOL OPHT DROPS 15 ML BOTTLE EACHEYE SCH ×4 (08:09→22:03)
[2019-12-09] MEDS: LISINOPRIL 5 MG TABLET PO SCH (08:09)
[2019-12-09] MEDS: LINAGLIPTIN 5 MG TABLET PO SCH (08:09)
[2019-12-09] MEDS: BUMETANIDE 1 MG TABLET PO SCH ×2 (08:09→17:20)
[2019-12-09] MEDS: APIXABAN 5 MG TABLET PO SCH ×2 (08:14→17:20)
[2019-12-09] MEDS: LIDOCAINE 5% PATCH TD SCH (08:15)
[2019-12-09] MEDS: MUPIROCIN 2% OINT 22 GM TUBE NS SCH ×2 (08:18→22:03)
[2019-12-09] MEDS: INSULIN REGULAR, HUMAN 300 UNIT/3 ML VIAL SQ PRN (11:57)
[2019-12-09 16:25] VITALS: BP 114/46
[2019-12-09 17:39] LABS: *BILIRUBIN,URIN NEGATIVE (NEGATIVE); *BLOOD, URINE 1+ (NEGATIVE); *CLARITY,URINE CLOUDY (CLEAR); *COLOR,URINE YELLOW (YELLOW); *KETONES,URINE NEGATIVE (NEGATIVE); *UROBILINOGEN,URINE 0.2 E.U./dl (NORMAL); LEUKOCYTE ESTERASE ,URINE 3+ (NEGATIVE); NITRITE, URINE NEGATIVE (NEGATIVE); UGLUCOSE NEGATIVE (NEGATIVE)
[2019-12-09 17:57] LABS: *CREATININE,URINE 42.5 mg/dL (30-125); *URINE TOTAL PROTEIN RANDOM 36.1 mg/dL (<150/24HR); BACTERIA,URINE MANY /HPF (NONE SEEN); SQUAMOUS EPITHELIAL CELL,UR MODERATE /HPF (NONE SEEN); WBC,URINE 50-80 /HPF (0-3)
[2019-12-09 19:47] VITALS: BP 114/42
[2019-12-09] MEDS: TRAZODONE 50 MG TABLET PO SCH (22:04)
[2019-12-09] MEDS: ATORVASTATIN 40 MG TABLET PO SCH (22:04)
[2019-12-09] MEDS: MELATONIN 3 MG TABLET PO SCH (22:04)
[2019-12-09] MEDS: MIRTAZAPINE 15 MG TABLET PO SCH (22:05)
[2019-12-09] MEDS: ARIPIPRAZOLE 5 MG TABLET PO SCH (22:06)
[2019-12-09] MEDS: INSULIN REGULAR, HUMAN 300 UNITS/3 ML VIAL SQ PRN (22:11)
[2019-12-09] MEDS: INSULIN GLARGINE,HUM 300 UNITS/3 ML CARTRIDGE SQ SCH (22:12)
[2019-12-10] MEDS: ACETAMINOPHEN 325 MG TABLET PO PRN (03:01)
[2019-12-10 05:36] VITALS: BP 107/40
[2019-12-10] MEDS: PANTOPRAZOLE SODIUM 40 MG TABLET.DR PO SCH (06:37)
[2019-12-10] MEDS: LEVOTHYROXINE SODIUM 137 MCG TABLET PO SCH (06:37)
[2019-12-10] MEDS: BLOOD SUGAR DIAGNOSTIC 1 EACH STRIP VI SCH ×4 (06:38→21:18)
[2019-12-10] MEDS: ZINC SULFATE 220 MG CAPSULE PO SCH (09:28)
[2019-12-10] MEDS: BUMETANIDE 1 MG TABLET PO SCH ×2 (09:28→16:59)
[2019-12-10] MEDS: LINAGLIPTIN 5 MG TABLET PO SCH (09:28)
[2019-12-10] MEDS: LIDOCAINE 5% PATCH TD SCH (09:29)
[2019-12-10 09:30] VITALS: BP 116/57
[2019-12-10] MEDS: LISINOPRIL 5 MG TABLET PO SCH (09:37)
[2019-12-10] MEDS: MUPIROCIN 2% OINT 22 GM TUBE NS SCH ×2 (09:38→21:24)
[2019-12-10] MEDS: APIXABAN 5 MG TABLET PO SCH ×2 (09:39→17:04)
[2019-12-10] MEDS: POLYVINYL ALCOHOL OPHT DROPS 15 ML BOTTLE EACHEYE SCH ×4 (09:54→21:11)
[2019-12-10] MEDS: INSULIN REGULAR, HUMAN 300 UNIT/3 ML VIAL SQ PRN (12:27)
[2019-12-10 15:59] VITALS: BP 115/65
[2019-12-10 20:40] VITALS: BP 130/52
[2019-12-10] MEDS: TRAZODONE 50 MG TABLET PO SCH (21:11)
[2019-12-10] MEDS: MELATONIN 3 MG TABLET PO SCH (21:11)
[2019-12-10] MEDS: ARIPIPRAZOLE 5 MG TABLET PO SCH (21:11)
[2019-12-10] MEDS: ATORVASTATIN 40 MG TABLET PO SCH (21:12)
[2019-12-10] MEDS: MIRTAZAPINE 15 MG TABLET PO SCH (21:15)
[2019-12-10] MEDS: INSULIN GLARGINE,HUM 300 UNITS/3 ML CARTRIDGE SQ SCH (21:21)
[2019-12-10] MEDS: INSULIN REGULAR, HUMAN 300 UNITS/3 ML VIAL SQ PRN (21:22)
[2019-12-10] MEDS: TEMAZEPAM 7.5 MG CAPSULE PO PRN (23:31)
[2019-12-11 05:37] VITALS: BP 125/64
[2019-12-11] MEDS: PANTOPRAZOLE SODIUM 40 MG TABLET.DR PO SCH (06:05)
[2019-12-11] MEDS: LEVOTHYROXINE SODIUM 137 MCG TABLET PO SCH (06:05)
[2019-12-11] MEDS: BLOOD SUGAR DIAGNOSTIC 1 EACH STRIP VI SCH ×4 (06:14→21:54)
[2019-12-11] MEDS: CEphaleXIN 500 MG CAPSULE PO SCH ×2 (08:28→17:06)
[2019-12-11] MEDS: BUMETANIDE 1 MG TABLET PO SCH ×2 (08:28→17:06)
[2019-12-11] MEDS: LINAGLIPTIN 5 MG TABLET PO SCH (08:28)
[2019-12-11] MEDS: POLYVINYL ALCOHOL OPHT DROPS 15 ML BOTTLE EACHEYE SCH ×4 (08:28→21:39)
[2019-12-11] MEDS: ZINC SULFATE 220 MG CAPSULE PO SCH (08:28)
[2019-12-11] MEDS: APIXABAN 5 MG TABLET PO SCH ×2 (08:30→17:08)
[2019-12-11] MEDS: MUPIROCIN 2% OINT 22 GM TUBE NS SCH ×2 (08:32→21:40)
[2019-12-11] MEDS: LISINOPRIL 5 MG TABLET PO SCH (08:35)
[2019-12-11] MEDS: LIDOCAINE 5% PATCH TD SCH (08:37)
[2019-12-11] MEDS ORDERED: NITROFURANTOIN/NITROFURAN MAC 100 MG CAPSULE PO SCH (09:00)
[2019-12-11 09:10] LABS: BASOPHILS % (AUTO) 0.4 % (0.0-2.0); EOSINOPHILS % (AUTO) 0.6 % (0.0-7.0); HEMATOCRIT 29.6 % (31.2-41.9); LYMPHOCYTES # (AUTO) 0.6 K/uL (20.0-40.0); LYMPHOCYTES % (AUTO) 11.2 % (20.5-51.5); MEAN CORPUSCULAR HEMOGLOBIN 29.9 uug (24.7-32.8); MEAN CORPUSCULAR HGB CONC 34 g/dL (32.3-35.6); MEAN CORPUSCULAR VOLUME 89.2 fL (75.5-95.3); MONOCYTES # (AUTO) 0.6 K/uL (2.0-10.0); MONOCYTES % (AUTO) 10.8 % (0.0-11.0); NEUTROPHILS # (AUTO) 4.2 K/uL (1.8-8.9); PLATELET COUNT (AUTO) 156 K/uL (179-408); RED BLOOD CELL COUNT(AUTO) 3.32 MIL/uL (3.63-4.92); WHITE BLOOD COUNT (AUTO) 5.4 K/uL (3.8-11.8)
[2019-12-11 09:33] LABS: ALANINE AMINOTRANSFERASE 24 U/L (14-59); ALKALINE PHOSPHATASE 180 U/L (50-136); ASPARTATE AMINOTRANSFERASE 34 U/L (15-37); BILIRUBIN,TOTAL 0.6 mg/dL (0.2-1.0); CARBON DIOXIDE 34 mmol/L (21-32); CHLORIDE 98 mmol/L (98-107); GLUCOSE 140 mg/dL (74-106); MAGNESIUM 1.9 mg/dL (1.8-2.4); PHOSPHOROUS 3.5 mg/dL (2.5-4.9); POTASSIUM 4.3 mmol/L (3.5-5.1); TOTAL PROTEIN, SERUM 7.8 g/dL (6.4-8.2); UREA NITROGEN, BLOOD 48 mg/dL (7-18)
[2019-12-11 11:19] VITALS: BP 109/61
[2019-12-11 16:00] VITALS: BP 114/56
[2019-12-11] MEDS: INSULIN REGULAR, HUMAN 300 UNITS/3 ML VIAL SQ PRN (21:35)
[2019-12-11] MEDS: INSULIN GLARGINE,HUM 300 UNITS/3 ML CARTRIDGE SQ SCH (21:37)
[2019-12-11] MEDS: ATORVASTATIN 40 MG TABLET PO SCH (21:38)
[2019-12-11] MEDS: TRAZODONE 50 MG TABLET PO SCH (21:38)
[2019-12-11] MEDS: ARIPIPRAZOLE 5 MG TABLET PO SCH (21:38)
[2019-12-11] MEDS: MELATONIN 3 MG TABLET PO SCH (21:38)
[2019-12-11] MEDS: MIRTAZAPINE 15 MG TABLET PO SCH (21:39)
[2019-12-11 22:53] VITALS: BP 96/55
[2019-12-12] MEDS: TEMAZEPAM 7.5 MG CAPSULE PO PRN ×2 (01:08→23:27)
[2019-12-12] MEDS: LEVOTHYROXINE SODIUM 137 MCG TABLET PO SCH (06:03)
[2019-12-12 06:06] VITALS: BP 102/50
[2019-12-12] MEDS: PANTOPRAZOLE SODIUM 40 MG TABLET.DR PO SCH (06:30)
[2019-12-12] MEDS: BLOOD SUGAR DIAGNOSTIC 1 EACH STRIP VI SCH ×4 (06:50→21:59)
[2019-12-12 08:00] VITALS: BP 98/41
[2019-12-12] MEDS: MUPIROCIN 2% OINT 22 GM TUBE NS SCH ×2 (08:52→21:58)
[2019-12-12] MEDS: BUMETANIDE 1 MG TABLET PO SCH ×2 (08:52→16:35)
[2019-12-12] MEDS: CEphaleXIN 500 MG CAPSULE PO SCH (08:52)
[2019-12-12] MEDS: LINAGLIPTIN 5 MG TABLET PO SCH (08:53)
[2019-12-12] MEDS: LIDOCAINE 5% PATCH TD SCH (08:53)
[2019-12-12] MEDS: ZINC SULFATE 220 MG CAPSULE PO SCH (08:53)
[2019-12-12] MEDS: LISINOPRIL 5 MG TABLET PO SCH (08:59)
[2019-12-12] MEDS: APIXABAN 5 MG TABLET PO SCH ×2 (09:03→16:36)
[2019-12-12] MEDS: POLYVINYL ALCOHOL OPHT DROPS 15 ML BOTTLE EACHEYE SCH ×4 (09:05→21:57)
[2019-12-12] MEDS: MEROPENEM 500 MG in IV NORMAL SALINE 50 ML IV SCH ×2 (11:20→23:14)
[2019-12-12 12:00] VITALS: BP 100/48
[2019-12-12] MEDS: INSULIN REGULAR, HUMAN 300 UNIT/3 ML VIAL SQ PRN ×2 (12:19→16:35)
[2019-12-12 16:00] VITALS: BP 103/49
[2019-12-12 20:00] VITALS: BP 98/46
[2019-12-12] MEDS: ARIPIPRAZOLE 5 MG TABLET PO SCH (21:58)
[2019-12-12] MEDS: ATORVASTATIN 40 MG TABLET PO SCH (21:58)
[2019-12-12] MEDS: MIRTAZAPINE 15 MG TABLET PO SCH (21:58)
[2019-12-12] MEDS: TRAZODONE 50 MG TABLET PO SCH (21:58)
[2019-12-12] MEDS: MELATONIN 3 MG TABLET PO SCH (21:58)
[2019-12-12] MEDS: INSULIN GLARGINE,HUM 300 UNITS/3 ML CARTRIDGE SQ SCH (22:02)
[2019-12-12] MEDS: INSULIN REGULAR, HUMAN 300 UNITS/3 ML VIAL SQ PRN (22:03)
[2019-12-13] MEDS: ACETAMINOPHEN 325 MG TABLET PO PRN (01:19)
[2019-12-13 04:14] VITALS: BP 128/63
[2019-12-13] MEDS: LEVOTHYROXINE SODIUM 137 MCG TABLET PO SCH (06:45)
[2019-12-13] MEDS: BLOOD SUGAR DIAGNOSTIC 1 EACH STRIP VI SCH ×3 (06:45→16:46)
[2019-12-13] MEDS: PANTOPRAZOLE SODIUM 40 MG TABLET.DR PO SCH (06:45)
[2019-12-13] MEDS: LISINOPRIL 5 MG TABLET PO SCH (09:00)
[2019-12-13] MEDS: LINAGLIPTIN 5 MG TABLET PO SCH (09:09)
[2019-12-13] MEDS: BUMETANIDE 1 MG TABLET PO SCH ×2 (09:10→17:16)
[2019-12-13] MEDS: ZINC SULFATE 220 MG CAPSULE PO SCH (09:13)
[2019-12-13] MEDS: APIXABAN 5 MG TABLET PO SCH ×2 (09:19→17:21)
[2019-12-13] MEDS: LIDOCAINE 5% PATCH TD SCH (09:20)
[2019-12-13] MEDS: INSULIN REGULAR, HUMAN 300 UNIT/3 ML VIAL SQ PRN ×2 (09:24→13:35)
[2019-12-13] MEDS: MUPIROCIN 2% OINT 22 GM TUBE NS SCH (09:34)
[2019-12-13] MEDS: POLYVINYL ALCOHOL OPHT DROPS 15 ML BOTTLE EACHEYE SCH ×3 (09:34→17:16)
[2019-12-13 11:30] VITALS: BP 134/60
[2019-12-13] MEDS: MEROPENEM 500 MG in IV NORMAL SALINE 50 ML IV SCH (13:05)
[2019-12-13 15:34] VITALS: BP 119/62
== END 2019-12-13 18:15 | disposition home health service (06) | DRG 683 ==
PROVIDERS: ADMIT Physical Medicine & Rehabilitation Pain Medicine; ATTEND Physical Medicine & Rehabilitation Pain Medicine
DX: N17.0 Acute kidney failure with tubular necrosis (principal); I13.0 Hypertensive heart and chronic kidney disease with heart failure and stage 1 through stage 4 chronic kidney disease, or unspecified chronic kidney disease; I50.32 Chronic diastolic (congestive) heart failure; Z16.12 Extended spectrum beta lactamase (ESBL) resistance; N39.0 Urinary tract infection, site not specified; E11.22 Type 2 diabetes mellitus with diabetic chronic kidney disease; D64.9 Anemia, unspecified; E03.9 Hypothyroidism, unspecified; E11.65 Type 2 diabetes mellitus with hyperglycemia; G89.29 Other chronic pain; N18.9 Chronic kidney disease, unspecified; M54.5 Low back pain; E11.649 Type 2 diabetes mellitus with hypoglycemia without coma; I25.10 Atherosclerotic heart disease of native coronary artery without angina pectoris; Z95.1 Presence of aortocoronary bypass graft; I48.91 Unspecified atrial fibrillation; K21.9 Gastro-esophageal reflux disease without esophagitis; K59.00 Constipation, unspecified; Z95.0 Presence of cardiac pacemaker; Z88.2 Allergy status to sulfonamides; Z88.8 Allergy status to other drugs, medicaments and biological substances; F41.9 Anxiety disorder, unspecified
CPT/HCPCS: 36415; 70030-TC; 83550; 83735; 84100; 84156; 84300; 85025; 87077; 87086; J1815; J2185; J3490; J7040

== ENCOUNTER 2021-02-13 05:24 | Inpatient (IN) | payer BC, OTHER ==
[~2021-02-13] VITALS: Ht 165.1 cm; Wt 68.0 kg
[~2021-02-13 05:24] MED LIST changes: -ACET-2154 PO; -ARIP2TAB3 PO; +ARIP5TAB10 PO; -ASCORBIC ACID PO; +BUME1TAB8 PO; -CALC-731 PO; -CYAN-51 PO; -INSU100C SQ; +INSU100V42 SQ; -INSU100V7 SQ; +Insulin Glargine,Hum SQ; +LEVO137T24 PO; -LEVO200T9 PO; +LINA5TAB PO; +LISI2.5T2 PO; -MULT-659 PO; -NITR0.4T48 SL; -PANT40TA4 PO; +PANT40TA49 PO; -POLY15DR27 EACHEYE; -POTA-10 PO; +RETAINE EACHEYE; +TRAZ-182 PO; -VITA1TAB18 PO; +ZINC1CAP2 PO; +[UNRECOGNIZED DRUG - OTHER] EACHEYE
--- NOTE | 2021-02-13 05:30 | NUR ---
Patient is coming from home BIB RA 839 report number: [id number]. Patient c/c: fall x 3 hours ago, c/o of right hip pain, right arm pain, neck pain, and headache.
--- NOTE | 2021-02-13 05:32 | NUR ---
MD Borrero in room to do MSE.
[2021-02-13] MEDS ORDERED: ACETAMINOPHEN 325 MG TABLET PO ONE (05:45)
--- NOTE | 2021-02-13 05:53 | NUR ---
Pt states she has a caregiver, but only there for 6 hours and only for certain days.
[2021-02-13 05:56] LABS: BASOPHILS % (AUTO) 0.6 % (0.0-2.0); EOSINOPHILS # (AUTO) 0.1 K/uL (0.0-0.7); EOSINOPHILS % (AUTO) 1.2 % (0.0-7.0); HEMATOCRIT 30.9 % (31.2-41.9); HEMOGLOBIN 10.8 g/dL (10.9-14.3); LYMPHOCYTES # (AUTO) 0.9 K/uL (20.0-40.0); LYMPHOCYTES % (AUTO) 17.4 % (20.5-51.5); MEAN CORPUSCULAR HEMOGLOBIN 33.6 uug (24.7-32.8); MEAN CORPUSCULAR HGB CONC 35 g/dL (32.3-35.6); MEAN CORPUSCULAR VOLUME 96.1 fL (75.5-95.3); MONOCYTES # (AUTO) 0.6 K/uL (2.0-10.0); MONOCYTES % (AUTO) 10.9 % (0.0-11.0); NEUTROPHILS # (AUTO) 3.8 K/uL (1.8-8.9); NEUTROPHILS % (AUTO) 69.9 % (38.5-71.5); PLATELET COUNT (AUTO) 209 K/uL (179-408); RED BLOOD CELL COUNT(AUTO) 3.22 MIL/uL (3.63-4.92); WHITE BLOOD COUNT (AUTO) 5.4 K/uL (3.8-11.8)
[2021-02-13 06:01] LABS: CREATININE 1.1 mg/dL (0.6-1.3); POTASSIUM 4.2 mmol/L (3.5-5.1)
--- NOTE | 2021-02-13 06:01 | NUR ---
Patient taken by mechanical technician out for CT scan.
[2021-02-13 06:07] LABS: BILIRUBIN,TOTAL 1.1 mg/dL (0.2-1.0); TOTAL PROTEIN, SERUM 7.3 g/dL (6.4-8.2)
[2021-02-13] MEDS ORDERED: ACETAMINOPHEN 325 MG TABLET ONE (06:08)
--- NOTE | 2021-02-13 06:29 | NUR ---
copier field service technician Darci called to inform that COVID lab sample is negative.
--- NOTE | 2021-02-13 06:29 | NUR ---
Patient resting on bed, watching television, and is in no acute distress.
--- NOTE | 2021-02-13 07:11 | NUR ---
Handoff report given to ANTWAN Gayle.
[2021-02-13 07:42] LABS: *BILIRUBIN,URIN NEGATIVE (NEGATIVE); *BLOOD, URINE NEGATIVE (NEGATIVE); *CLARITY,URINE CLOUDY (CLEAR); *COLOR,URINE YELLOW (YELLOW); *KETONES,URINE NEGATIVE (NEGATIVE); *UROBILINOGEN,URINE 0.2 E.U./dl (NORMAL); LEUKOCYTE ESTERASE ,URINE 1+ (NEGATIVE); NITRITE, URINE NEGATIVE (NEGATIVE); PH,URINE 5.5 (5.0-8.0); UGLUCOSE NEGATIVE (NEGATIVE)
--- NOTE | 2021-02-13 08:11 | NUR ---
Pt eating breakfast, NAD noted.
[2021-02-13 08:17] LABS: BACTERIA,URINE MANY /HPF (NONE SEEN); SQUAMOUS EPITHELIAL CELL,UR MANY /HPF (NONE SEEN)
[2021-02-13 08:18] LABS: MUCUS,URINE NONE SEEN /LPF (0-FEW); RBC,URINE NONE SEEN /HPF (0-3)
[2021-02-13 08:19] LABS: WBC,URINE 50-80 /HPF (0-3)
--- NOTE | 2021-02-13 09:55 | NUR ---
Patint being arranged for admission, room 305, Jolynn MONCADA to receive report
[2021-02-13] MEDS ORDERED: ONDANSETRON 4 MG/2 ML VIAL IV PRN (10:45)
[2021-02-13] MEDS ORDERED: MAGNESIUM HYDROXIDE 30 ML LIQUID UDC PO PRN (10:45)
[2021-02-13] MEDS ORDERED: Z GUARD REMEDY PASTE 57 GM TUBE TOP PRN (10:45)
--- NOTE | 2021-02-13 10:58 | NUR ---
patient given turkey sandwish at this time, no signs of acute distress noted
[2021-02-13 13:00] VITALS: BP 155/84
--- NOTE | 2021-02-13 13:05 | NUR ---
Received patient from the ER. Patient is alert and oriented x 4 with forgetfulness, denies of any pain at this time, belongings assessment done, body assessment done. Upon assessment patient stated that she has a breast cancer on her left breast , implants were done on the left breast per patient. Skin is intact with bruises on BUE. IV line started 3x but unsuccessful. Per patient she has a pacemaker. Dr. Alves order for midline insertion and patient notified and agree, son Rich made aware. All needs met promptly. Call light placed within easy reach. Will continue to monitor.
--- NOTE | 2021-02-13 13:31 | NUR ---
Pt. admitted to [facility], under care of Dr. Alves Belongs List completed and all belongings sent with patient
--- NOTE | 2021-02-13 16:45 | NUR ---
Midline insertion done, patent and dressing intact. IV fluid per MD order started. Will continue to monitor.
[2021-02-13 16:57] VITALS: BP 142/78
[2021-02-13] MEDS: ACETAMINOPHEN 325 MG TABLET PO PRN ×2 (16:57→23:39)
[2021-02-13] MEDS: IV NS 1000 ML 1,000 ML IV PRN (17:02)
[2021-02-13] MEDS ORDERED: DEXTROSE 50% 50 ML DISP.SYRIN IV PRN (17:45)
[2021-02-13 20:00] VITALS: BP 149/77
--- NOTE | 2021-02-13 20:01 | NUR ---
Received patient in bed alert and able to make needs known.On RA. No respiratory distress noted.Denies pain at this time.Midline single lumen on right upper arm patent and intact with IVf running well at 75 cc/hr.Tolerate well. Due meds given. Safety measures in place. Reinforced teaching to use call light for assistance. Patient verbalized understanding. VSS.will continue to monitor.
[2021-02-13] MEDS: BLOOD SUGAR DIAGNOSTIC 1 EACH STRIP VI SCH (20:55)
[2021-02-13] MEDS: INSULIN REGULAR, HUMAN 300 UNIT/3 ML VIAL SQ PRN (20:56)
[2021-02-13] MEDS: ARIPIPRAZOLE 5 MG TABLET PO SCH (20:58)
[2021-02-13] MEDS: TRAZODONE 50 MG TABLET PO SCH (20:59)
[2021-02-14 04:00] VITALS: BP 130/74
[2021-02-14] MEDS: IV NS 1000 ML 1,000 ML IV PRN ×2 (06:11→20:59)
[2021-02-14] MEDS: BLOOD SUGAR DIAGNOSTIC 1 EACH STRIP VI SCH ×4 (06:32→20:12)
[2021-02-14] MEDS: PANTOPRAZOLE SODIUM 40 MG TABLET.DR PO SCH (06:32)
[2021-02-14 06:39] LABS: BASOPHILS % (AUTO) 0.7 % (0.0-2.0); EOSINOPHILS # (AUTO) 0.1 K/uL (0.0-0.7); HEMATOCRIT 27.6 % (31.2-41.9); HEMOGLOBIN 9.5 g/dL (10.9-14.3); LYMPHOCYTES # (AUTO) 0.7 K/uL (20.0-40.0); LYMPHOCYTES % (AUTO) 20.4 % (20.5-51.5); MEAN CORPUSCULAR HEMOGLOBIN 33.1 uug (24.7-32.8); MEAN CORPUSCULAR HGB CONC 34 g/dL (32.3-35.6); MEAN CORPUSCULAR VOLUME 96.7 fL (75.5-95.3); MONOCYTES # (AUTO) 0.4 K/uL (2.0-10.0); MONOCYTES % (AUTO) 11.2 % (0.0-11.0); NEUTROPHILS # (AUTO) 2.2 K/uL (1.8-8.9); NEUTROPHILS % (AUTO) 64.7 % (38.5-71.5); PLATELET COUNT (AUTO) 153 K/uL (179-408); RED BLOOD CELL COUNT(AUTO) 2.85 MIL/uL (3.63-4.92); WHITE BLOOD COUNT (AUTO) 3.4 K/uL (3.8-11.8)
[2021-02-14 07:07] LABS: MAGNESIUM 1.6 mg/dL (1.8-2.4); PHOSPHOROUS 3.5 mg/dL (2.5-4.9); POTASSIUM 3.6 mmol/L (3.5-5.1); TOTAL PROTEIN, SERUM 5.5 g/dL (6.4-8.2)
[2021-02-14] MEDS: BUMETANIDE 1 MG TABLET PO SCH (08:51)
[2021-02-14] MEDS: LINAGLIPTIN 5 MG TABLET PO SCH (08:52)
[2021-02-14] MEDS: APIXABAN 2.5 MG TABLET PO SCH ×2 (08:52→17:22)
[2021-02-14] MEDS: ZINC SULFATE 220 MG CAPSULE PO SCH (08:52)
[2021-02-14] MEDS: LEVOTHYROXINE SODIUM 137 MCG TABLET PO SCH (08:52)
[2021-02-14 11:23] VITALS: BP 155/61
[2021-02-14] MEDS: INSULIN REGULAR, HUMAN 300 UNIT/3 ML VIAL SQ PRN (13:30)
[2021-02-14] MEDS: MAGNESIUM SULFATE/D5W 100 ML IV SCH ×2 (13:43→14:58)
[2021-02-14 16:01] VITALS: BP 139/72
[2021-02-14] MEDS: ATORVASTATIN 40 MG TABLET PO SCH (17:23)
--- NOTE | 2021-02-14 19:02 | NUR ---
VSS, pt taking PO without any N/V and no s/s of aspiration. Pt sitting up in bed with no complaints, no s/s of distress. Reporting off to nightshift RN.
--- NOTE | 2021-02-14 19:55 | NUR ---
Patient resting in bed comfortably.On RA in no apparent distress noted.No c/o pain at this time. Midline on right upper arm patent and intact with IVF infusing well. Continue safety measures.Call light with in reach.
[2021-02-14] MEDS: ARIPIPRAZOLE 5 MG TABLET PO SCH (20:09)
[2021-02-14] MEDS: TRAZODONE 50 MG TABLET PO SCH (20:09)
[2021-02-14 20:14] VITALS: BP 131/61
[2021-02-15 04:50] VITALS: BP 133/61
[2021-02-15] MEDS: ACETAMINOPHEN 325 MG TABLET PO PRN (05:32)
[2021-02-15] MEDS: BENZOCAINE/MENTH/CETYLPYRD LOZENGE MM PRN ×3 (06:11→16:54)
--- NOTE | 2021-02-15 06:23 | NUR ---
Patient c/o sore throat. made aware with new order received ,noted and carried out.
[2021-02-15] MEDS: PANTOPRAZOLE SODIUM 40 MG TABLET.DR PO SCH (06:34)
[2021-02-15] MEDS: BLOOD SUGAR DIAGNOSTIC 1 EACH STRIP VI SCH ×3 (06:34→16:45)
[2021-02-15 07:11] LABS: MAGNESIUM 1.9 mg/dL (1.8-2.4); POTASSIUM 4.1 mmol/L (3.5-5.1)
[2021-02-15 08:00] VITALS: BP 137/71
[2021-02-15] MEDS: LINAGLIPTIN 5 MG TABLET PO SCH (09:34)
[2021-02-15] MEDS: BUMETANIDE 1 MG TABLET PO SCH (09:34)
[2021-02-15] MEDS: APIXABAN 2.5 MG TABLET PO SCH ×2 (09:34→16:55)
[2021-02-15] MEDS: ZINC SULFATE 220 MG CAPSULE PO SCH (09:35)
[2021-02-15] MEDS: LEVOTHYROXINE SODIUM 137 MCG TABLET PO SCH (09:35)
[2021-02-15] MEDS: IV NS 1000 ML 1,000 ML IV PRN (10:59)
[2021-02-15] MEDS ORDERED: CEFTRIAXONE 1 G in IV DEXTROSE 5% 50 ML IV SCH (12:00)
[2021-02-15] MEDS: INSULIN REGULAR, HUMAN 300 UNIT/3 ML VIAL SQ PRN (12:12)
[2021-02-15 16:39] VITALS: BP 124/57
[2021-02-15] MEDS: ATORVASTATIN 40 MG TABLET PO SCH (16:54)
--- NOTE | 2021-02-15 17:00 | NUR ---
PREPARED FOR DISCHARGE. MIDLINE DC'D. ANGIOCATH REMOVED INTACT. CAREGIVER AT BEDSIDE.
--- NOTE | 2021-02-15 17:30 | NUR ---
INSTRUCTIONS GIVEN TO PATIENT AND CAREGIVER, PRESCRIPTION GIVEN TO PATIENT & CAREGIVER. NO C/O DISCOMFORT.
[2021-02-16] MEDS ORDERED: LEVOTHYROXINE SODIUM 137 MCG TABLET PO SCH (07:00)
== END 2021-02-15 17:30 | disposition home health service (06) | DRG 689 ==
LOC: ER 05:25 → MEDSURG3 12:42
PROVIDERS: ADMIT Internal Medicine; ATTEND Internal Medicine
PROC: 05H533Z Insertion of Infusion Device into Right Subclavian Vein, Percutaneous Approach (ICD-10-PCS; principal; 2021-02-13)
PROC: B546ZZA Ultrasonography of Right Subclavian Vein, Guidance (ICD-10-PCS; 2021-02-13)
DX: N39.0 Urinary tract infection, site not specified (principal); G93.41 Metabolic encephalopathy; I50.32 Chronic diastolic (congestive) heart failure; R53.1 Weakness; I11.0 Hypertensive heart disease with heart failure; R29.6 Repeated falls; Z20.822 Contact with and (suspected) exposure to COVID-19; I25.10 Atherosclerotic heart disease of native coronary artery without angina pectoris; E11.9 Type 2 diabetes mellitus without complications; I48.91 Unspecified atrial fibrillation; Z79.01 Long term (current) use of anticoagulants; Z79.4 Long term (current) use of insulin; M19.90 Unspecified osteoarthritis, unspecified site; Z95.0 Presence of cardiac pacemaker; Z95.1 Presence of aortocoronary bypass graft; Z95.2 Presence of prosthetic heart valve; B96.20 Unspecified Escherichia coli [E. coli] as the cause of diseases classified elsewhere; G20 Parkinson's disease; W19.XXXA Unspecified fall, initial encounter; Y93.9 Activity, unspecified; Y92.009 Unspecified place in unspecified non-institutional (private) residence as the place of occurrence of the external cause
CPT/HCPCS: 36415; 70450; 72125; 72170; 73560; 83735; 84100; 85025; 87086; 93005; A4663; G0378; J0696; J1815; J3475; J7030; J7060